=== PATIENT | female | born 1935 | race Caucasian/White ===

== ENCOUNTER 2016-07-29 15:48 | Emergency (ER) | payer OTHER ==
[~2016-07-29] VITALS: Ht 157.5 cm; Wt 60.5 kg
[~2016-07-29 15:48] MED LIST: ALPR0.5T PO; AMIT75TA2 PO; GLC/500 PO; OMEP20CA59 PO; ROSU20TA PO; TOLT4CAP PO; [UNRECOGNIZED DRUG - CODE] PO
[2016-07-29 15:54] VITALS: TEMP 37; Ht 157.5 cm; Wt 60.5 kg
[2016-07-29] MEDS ORDERED: ZNTT/150 PO (16:55)
--- NOTE | 2016-07-29 17:01 | DIAGNOSTIC IMAGING REPORT ---
LEFT RIBS UNILATERAL WITH PA CHEST CLINICAL HISTORY: left rib pain, fall two weeks ago COMPARISON STUDY: Chest 09/10/2010. FINDINGS: No pneumothorax. No focal lung consolidations. No evidence for pulmonary edema. No pleural effusions. The heart is stable in size. S-shaped scoliosis of the thoracolumbar spine is again noted. There appear to be acute to subacute fractures involving the left fifth, sixth, and eighth ribs. IMPRESSION: Acute to subacute left fifth, sixth, and eighth rib fractures. No pneumothorax. Electronically signed by: Jose A Cardozo M.D. 07/29/2016 5:00 PM Dictated Date/Time: 07/29/2016 4:57 PM
--- NOTE | 2016-07-29 17:27 | EMERGENCY ROOM VISIT NOTE ---
ED Visit Note First contact with patient: 16:35 CHIEF COMPLAINT: Left rib pain HISTORY OF PRESENT ILLNESS: This 81-year-old female presents the ER chief complaint of left lateral rib pain. The patient states that she fell 2 weeks ago. She is unaware if she hit the left side of her ribs. She has been having some left rib pain since that time. She went to her family physician last and they did an EKG and some labs and told her that it was not her heart. They did not do an x-ray of her ribs. The patient is requesting an x- ray of her ribs today. The patient states it hurts to take in a deep breath or if she sneezes. REVIEW OF SYSTEMS: 6 system review was performed and was negative unless stated otherwise in history of present illness. PMH: See chronic problem list SOCIAL HISTORY: Patient lives with her PHYSICAL EXAM: Vital Signs: Were reviewed Reviewed Nurse's notes. GEN.: 81-year -old white female appears in no acute distress. MENTAL Status: Alert and oriented 3. LUNGS: Clear to auscultation and breath sounds equal, no wheezes, rales, or rhonchi. HEART: Heart sounds are regular without murmurs, ectopy, gallop, or rub. CHEST WALL: Patient has tenderness to palpation over the left lateral chest wall. Otherwise nontender. No ecchymosis, erythema or edema noted. EMERGENCY DEPARTMENT COURSE: The patient was evaluated. The patient was offered pain medication but declined. X-ray of the left ribs was ordered and interpreted by the radiologist and myself. DIAGNOSTICS:LEFT RIBS UNILATERAL WITH PA CHEST CLINICAL HISTORY: left rib pain, fall two weeks ago COMPARISON STUDY: Chest 09/10/2010. FINDINGS: No pneumothorax. No focal lung consolidations. No evidence for pulmonary edema. No pleural effusions. The heart is stable in size. S-shaped scoliosis of the thoracolumbar spine is again noted. There appear to be acute to subacute fractures involving the left fifth, sixth, and eighth ribs. IMPRESSION: Acute to subacute left fifth, sixth, and eighth rib fractures. No pneumothorax. The patient was informed of the findings the patient was independently evaluated by Dr. Alvarado who agrees with treatment plan. The patient was discharged home in stable condition. DIAGNOSIS: Multiple left rib fractures TREATMENT and DISCHARGE INSTRUCTIONS: Take [place] as needed for pain. Do not drive while taking the [place]. Avoid any heavy lifting until pain has subsided. If symptoms persist or worsen, follow-up with your family doctor. Problem List Medical Problems: (1) Diabetes mellitus Status: Chronic Surgical Problems: (1) History of hip replacement Status: Chronic Current/Historical Medications Scheduled Alprazolam (Xanax), 0.5 MG PO BID PRN Amitriptyline Hcl (Elavil), 1 TAB PO HS Levodopa/Carbidopa (Sinemet 25MG/250MG), 1 TAB PO HS Metformin Hcl (Glucophage), 500 MG PO BID Omeprazole (Prilosec), 20 MG PO BID Ranitidine (Zantac), 150 MG PO BID Rosuvastatin Calcium (Crestor), 20 MG PO HS Tolterodine Tartrate (Detrol La), 4 MG PO DAILY Allergies Coded Allergies: Aspirin (Verified Allergy, Unknown, 12/14/15) Penicillins (Verified Allergy, Unknown, 12/14/15) Vital Signs Date Time Temp Pulse Resp B/P Pulse Ox O2 Delivery O2 Flow Rate FiO2 07/29/16 15:54 37.0 80 18 122/72 97 Room Air Departure Information Referrals Malia Artis DO (PCP) Patient Instructions My [facility]
[2016-07-29] MEDS ORDERED: HYDR-5688 PO (17:29)
[2016-07-29 17:41] VITALS: BP 142/80; PULSE 62; O2SAT 97
--- NOTE | 2016-07-30 12:05 | EMERGENCY ROOM VISIT NOTE ---
ED Visit Note First contact with patient: 16:35 I have personally evaluated this patient examined her and reviewed the pertinent labs and data. I have discussed the case with Inga Rivera, the physician tiler's assistant and agree with the plan. Please refer to the PA note. This patient comes in after having left rib vern.n she fell about a week ago. On x-ray, she has a couple rib fractures but no pneumothorax. She looks well on exam. She has no abdominal tenderness. She has no crepitus or subcutaneous air. I stressed the importance of pain management and taking several deep breaths an hour. She can have a close follow-up with her regular doctor and will be discharged home with pain management. I warned her that she needs to be careful getting up and down and do not drink or drive after taking narcotics.
== END 2016-07-29 17:41 | disposition home or self-care (01) ==
LOC: C.EDB 15:49 → C.EDD 17:41
DX: S22.42XA Multiple fractures of ribs, left side, initial encounter for closed fracture (principal); W19.XXXA Unspecified fall, initial encounter; E11.9 Type 2 diabetes mellitus without complications; Z96.649 Presence of unspecified artificial hip joint

== ENCOUNTER 2019-01-06 08:30 | Inpatient (IN) ==
[2019-01-06] MEDS ORDERED: ONDANSETRON INJ 2 MG/ML 2 ML VIAL IV STA (09:04)
[2019-01-06] MEDS ORDERED: SODIUM CHLORIDE 0.9% 500 ML IV SCH (09:15)
[2019-01-06 09:24] LABS: Basophils # (auto) 0.03 K/uL (0-0.2); Basophils % (auto) 0.4 %; Eosinophils # (auto) 0.03 K/uL (0-0.5); Eosinophils % (auto) 0.4 %; Hematocrit (blood only) 42.4 % (37-47); Hemoglobin 14.6 g/dL (12.0-16.0); Immature Granulocytes # (auto) 0.02 K/uL (0.00-0.02); Immature Granulocytes % (auto) 0.3 %; Lymphocytes # (auto) 1.66 K/uL (1.2-3.4); Lymphocytes % (auto) 24.8 %; Mean Corpuscular Hgb Conc 34.4 g/dL (32-36); Mean Platelet Volume 9.5 fL (7.4-10.4); Monocytes # (auto) 0.51 K/uL (0.11-0.59); Monocytes % (auto) 7.6 %; Neutrophils # (auto) 4.44 K/uL (1.4-6.5); Neutrophils % (auto) 66.5 %; Platelet Count 238 K/uL (130-400); RDW Coefficient of Variation 13.4 % (11.5-14.5); RDW Standard Deviation 44.4 fL (36.4-46.3); Red Blood Count 4.61 M/uL (4.2-5.4); White Blood Count 6.69 K/uL (4.8-10.8)
--- NOTE | 2019-01-06 09:28 | XRay Report ---
SINGLE VIEW CHEST CLINICAL HISTORY: Epigastric abdominal pain. FINDINGS: An AP, portable, upright chest radiograph is compared to study dated 07/29/2016. The examina tion is degraded by portable technique and patient rotation. The heart is top normal for projection , noting atherosclerotic calcification of the thoracic aorta.. Chronic interstitial thickening an mil d elevation of the left hemidiaphragm are similar to previous. There is bibasilar scarring/atelectasi s. No airspace consolidation or large pleural effusion is identified. No pneumothorax is seen. The sk eletal structures are osteopenic. The bony thorax is grossly intact. Degenerative change and scoliosi s are noted in the thoracic spine IMPRESSION: No active disease in the chest. Electronically signed by: John Ortega M.D. 01/06/2019 9:27 AM
[2019-01-06 09:35] LABS: Partial Thromboplastin Ratio 0.8; Partial Thromboplastin Time 22.2 Seconds (21.0-31.0); Prothrombin Time 10.2 Seconds (9.0-12.0)
[2019-01-06 09:42] LABS: Alanine Aminotransferase 22 U/L (12-78); Albumin Level 3.5 gm/dl (3.4-5.0); Aspartate Aminotransferase 16 U/L (15-37); BUN Creatinine Ratio 22.3 (10-20); Blood Urea Nitrogen 19 mg/dl (7-18); Calcium 8.7 mg/dl (8.5-10.1); Carbon Dioxide 29 mmol/L (21-32); Chloride 106 mmol/L (98-107); Creatinine Clr Calc Pharmacy 43.8 ml/min; Est GFR (Non-African American) 63.8; Glucose 113 mg/dl (70-99); Magnesium 2.2 mg/dl (1.8-2.4); Potassium 4.1 mmol/L (3.5-5.1); Sodium 142 mmol/L (136-145)
[2019-01-06 09:47] LABS: Albumin Globulin Ratio 0.9 (0.9-2); Alkaline Phosphatase 73 U/L (45-117); Bilirubin,Total 0.3 mg/dl (0.2-1); Globulin 3.8 gm/dl (2.5-4.0); Total Protein 7.3 gm/dl (6.4-8.2); Troponin I < 0.015 ng/ml (0-0.045)
[2019-01-06] MEDS: IOVERSOL 100ml IV PRN ×2 (09:59→10:07)
--- NOTE | 2019-01-06 10:18 | CT Scan Report ---
CT SCAN OF THE ABDOMEN AND PELVIS WITH IV CONTRAST CLINICAL HISTORY: Abnormal ultrasound. 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 COMPARISON STUDY: Abdominal radiographs dated 11/05/2008. Abdominal ultrasound dated 01/06/2019. TECHNIQUE: Following the IV administration of 94 cc of Optiray 320, CT scan of the abdomen and pelvi s is performed from the lung bases to the proximal femora. Images are reviewed in the axial, sagittal , and coronal planes. IV contrast was administered without complication. A dose lowering technique wa s utilized adhering to the principles of ALARA. CT DOSE: 292.54 mGy.cm FINDINGS: Lung bases: The heart is normal in size and without pericardial effusion. The coronary arteries are d ensely calcified fat-containing Bochdalek hernias are seen at both lung bases. There is elevation of left hemidiaphragm and dependent atelectasis. A 7 mm pleural-based nodule is seen in the right middle lobe on image #19. Pulmonary pleural-based nodules at the left lung base measure up to 6 mm. A 3 mm right lower lobe nodule is seen on image #44. No airspace consolidation or pleural effusion is identi fied. There is a small to moderate hiatal hernia. Liver: The contrast-enhanced liver is enlarged, measuring 19 cm in length. The liver demonstrates dif fusely diminished attenuation consistent with hepatic steatosis. There is no intrahepatic biliary jacqueline devin dilatation. The hepatic veins and portal veins are patent. Gallbladder: The calcified gallstone is noted. There is no CT evidence of acute cholecystitis. Spleen: Normal in size and attenuation. Pancreas: Mildly atrophic and grossly unremarkable. Adrenal glands: Unremarkable. Kidneys: The contrast enhanced kidneys are normal in size and without hydronephrosis. The kidneys enh ance symmetrically. Abdominal vasculature: There is advanced atherosclerotic calcification and mild ectasia of the abdomi nal aorta. There is a large nonocclusive thrombus identified within the inferior vena cava. This sri ures over 8.5 cm in length, end is seen at the level of the left renal vein and extends into the righ t iliac vein. Bowel: There is moderate constipation. No bowel obstruction is seen. The appendix is not visualized. Peritoneum: There is no intraperitoneal free air or abdominal ascites. There is asymmetric atrophy of the left psoas muscle as compared to the right. There is a fat-containing umbilical hernia. Lymphadenopathy: None. Pelvic viscera: Evaluation of the pelvis is degraded by streak artifact from a left hip arthroplasty. The bladder is normal as imaged. The uterus is surgically absent. No adnexal lesion is seen. Fat-con taining hernias are present in the groin bilaterally, likely femoral on the right. Skeletal structures: The skeletal structures are osteopenic. No lytic or blastic lesions are seen. Th ere is mild to moderate lumbosacral spondylosis and scoliosis. A left hip arthroplasty is in place. IMPRESSION: 1. 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 This extends into th e right iliac vein. 2. No infectious or inflammatory findings are identified in the abdomen or pelvis. 3. Hepatomegaly and hepatic steatosis. 4. Moderate constipation. 5. Indeterminant pulmonary and pleural-based nodules are present at both lung bases measure up to 7 m m. 6. Cholelithiasis. 7. Additional findings as above. Electronically signed by: John Ortega M.D. 01/06/2019 10:17 AM
[2019-01-06] MEDS ORDERED: Heparin IV Standard *NO* Bolus ONE (10:33)
--- NOTE | 2019-01-06 11:06 | History & Physical Report ---
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 Consult vascular surgery. Heparin infusion Present on Admission?: Yes (2) Cholelithiasis: Associated with nausea. Obtain HIDA scan. No evidence of acute cholecystitis on CT scan or gallbladder ultrasound Present on Admission?: Yes (3) Diabetes mellitus: ADA diet. Sliding scale insulin coverage. The patient request solid food. Hold metformin Present on Admission?: Yes (4) Depression with anxiety: Treated with venlafaxine Present on Admission?: Yes (5) DVT prophylaxis: Currently on heparin drip History of Present Illness Chief Complaint: IVC thrombosis noted on CT scan. Nausea Primary Care Provider: CAIN Sparrow 83-year-old female with episodes of postprandial nausea mostly in the morning. She has had several studies done and the CT scan reveals evidence of an IVC clot that is partially occlusive extending from the left renal vein down to the right iliac vein. She also has hepatic steatosis and cholelithiasis. The gallbladder is distended but no evidence of acute cholecystitis. She may have chronic gallbladder disease causing the nausea or possibly the nausea is from the IVC thrombus. HIDA scan has been ordered. Dr. Mcdaniel has discussed the case with Dr. Bauer who recommended heparin infusion which has been started. Vascular surgery has been formally consulted to see the patient for their recommendations. She requests a DNR status. No change in bowel habits. No vomiting, hematemesis, melena, hematochezia. No recent weight loss. Allergies Allergy/AdvReac Type Severity Reaction Status Date / Time aspirin Allergy Unknown Verified 01/06/19 10:18 Penicillins Allergy Unknown Verified 01/06/19 10:18 Home Medications Home Medications Medication Instructions Recorded Confirmed Type ondansetron 4 mg disintegrating 4 mg PO .dissolve 1 under the PRN 11/19/18 01/06/19 Rx tablet #12 tab tolterodine 2 mg tablet 2 mg PO HS #90 tab 11/19/18 01/06/19 Rx cholecalciferol (vitamin D3) 50,000 units PO WK #10 cap 01/06/19 01/06/19 History 50,000 unit capsule cyanocobalamin (vit B-12) 1,000 1,000 mcg PO QAM #30 tab 01/06/19 01/06/19 History mcg tablet metformin 500 mg PO HS 01/06/19 01/06/19 History pantoprazole 40 mg PO QAM 01/06/19 01/06/19 History sucralfate [Carafate] 10 ml PO QAM 01/06/19 01/06/19 History venlafaxine 150 mg PO QAM 01/06/19 01/06/19 History Past Med/Surg History Medical History Cholelithiasis (Chronic) Inferior vena caval thrombosis (Acute) RUQ abdominal pain (Acute) Depression with anxiety (Chronic) We will contact the patient so that she can call [facility] to get an appointment scheduled with Psychiatry to help with her anxiety and depression. GERD (gastroesophageal reflux disease) (Chronic) Trial of Carafate 1 gram suspension 1st thing in the morning an hour before she eats breakfast to see if that helps with the nausea. If that is not helpful we may need to order a gastric emptying study. Impacted cerumen of both ears (Acute) Diabetes mellitus (Chronic) Reflux esophagitis History of hysterectomy Surgical History History of hip replacement (Chronic) History of appendectomy Social History Feels Safe at Home: Yes Smoking Status: Never smoker Review of Systems Review of Systems: Constitutional-no fever or chills ENT-no blurred vision, no double vision, no epistaxis, no sore throat Respiratory-no cough, no wheezing, no shortness of breath Cardiac-no palpitations, no chest pain, no syncope GI-no vomiting, diarrhea, melena, hematochezia. Some postprandial nausea especially in the morning -no urinary retention, no urinary incontinence, no dysuria, no hematuria Musculoskeletal-no joint pain, no muscle tenderness Skin-no bruising, no rashes, no pruritus Neuro-no isolated weakness, no paresthesia, no weakness Psych-no depression, no anxiety Physical Exam Physical Exam: General-alert and oriented x3, no fevers, no chills HEENT-head atraumatic and normocephalic, TMs intact bilaterally, pupils equal and reactive to light, extraocular muscles intact Neck-no lymphadenopathy or thyromegaly, trachea midline Chest-clear to auscultation percussion. No rales wheezing or rhonchi Cardiac-regular rate and rhythm, normal S1 and S2, no JVD Abdomen-normal bowel sounds, nontender, no hepatosplenomegaly Extremities-no cyanosis, clubbing, or edema Neuro-cranial nerves II through XII intact, motor and sensory function within normal limits, strength symmetrical , no focal deficits Psych-normal affect, normal mood Results & Data Vital Signs (Past 12 Hours) Vital Signs Temp Pulse Pulse Resp BP BP Pulse Ox 01/06/19 09:24 97 01/06/19 09:23 62 18 173/79 H 97 01/06/19 08:33 36.8 C 69 16 151/82 H 97 Laboratory Results 01/06/19 09:09 01/06/19 09:09 PG Care Time/CCT Total # of Minutes Spent Total Time Spent with Patient: Total time spent is greater than 50% in coordination of care (as documented) at patient's floor/unit and/or counseling patient:
[2019-01-06] MEDS: HEPARIN SODIUM/DEXTROSE 25,000 UNITS/500 ML BAG IV SCH (11:39)
[2019-01-06] MEDS ORDERED: ACETAMINOPHEN 325 MG TAB PO PRN (12:37)
[2019-01-06] MEDS ORDERED: ONDANSETRON INJ 2 MG/ML 2 ML VIAL IV PRN (12:37)
[2019-01-06] MEDS ORDERED: ALUMINUM/MAGNESIUM SUSP 30 ML UDC PO PRN (12:37)
--- NOTE | 2019-01-06 12:56 | Emergency Department Note ---
Entered by Sonya Spaulding acting as a scribe for History of Present Illness General Chief complaint: Abdominal Pain Stated complaint: STOMACH PROBLEMS Time Seen by Provider: 01/06/19 08:51 Source: patient History of Present Illness Provider complaint: nausea Onset (ago): week(s) Pain Consistency: + other (episode) Maximum Pain Intensity: 0 Quality: + other (nausea) Associated symptoms: + denies other symptoms (weight loss, diarrhea, vomiting, pain) and + other (blue spot on abdomen, constipation); no chest pain and no shortness of breath Treatments prior to arrival: none The patient is an 83 year old female who presents to the ED with complaints of an episode of nausea that began a few weeks ago. The patient notes a history of appendectomy and two hysterectomies. The patient denies a history of cholecystectomy, DVT and PE. The patient states that she has a blue spot on her abdomen and has been experiencing constipation recently, but is in no pain otherwise. The patient denies recent weight loss, diarrhea, shortness of breath, chest pain, and vomiting. The patient denies treatment prior to arrival. The patient had an outpatient US of abdomen today to look at her gallbladder, but a venous clot was found. Patient was advised to seek immediate evaluation in ED. Home Medications Home Medications Medication Instructions Recorded Confirmed Type ondansetron 4 mg disintegrating 4 mg PO .dissolve 1 under the PRN 11/19/18 01/06/19 Rx tablet #12 tab tolterodine 2 mg tablet 2 mg PO HS #90 tab 11/19/18 01/06/19 Rx cholecalciferol (vitamin D3) 50,000 units PO WK #10 cap 01/06/19 01/06/19 History 50,000 unit capsule cyanocobalamin (vit B-12) 1,000 1,000 mcg PO QAM #30 tab 01/06/19 01/06/19 History mcg tablet metformin 500 mg PO HS 01/06/19 01/06/19 History pantoprazole 40 mg PO QAM 01/06/19 01/06/19 History sucralfate [Carafate] 10 ml PO QAM 01/06/19 01/06/19 History venlafaxine 150 mg PO QAM 01/06/19 01/06/19 History Allergies Allergy/AdvReac Type Severity Reaction Status Date / Time aspirin Allergy Unknown Verified 01/06/19 10:18 Penicillins Allergy Unknown Verified 01/06/19 10:18 Past Med/Surg History Medical History Cholelithiasis (Chronic) Inferior vena caval thrombosis (Acute) RUQ abdominal pain (Acute) Depression with anxiety (Chronic) We will contact the patient so that she can call [facility] to get an appointment scheduled with Psychiatry to help with her anxiety and depression. GERD (gastroesophageal reflux disease) (Chronic) Trial of Carafate 1 gram suspension 1st thing in the morning an hour before she eats breakfast to see if that helps with the nausea. If that is not helpful we may need to order a gastric emptying study. Impacted cerumen of both ears (Acute) Diabetes mellitus (Chronic) Reflux esophagitis History of hysterectomy Surgical History History of hip replacement (Chronic) History of appendectomy Social History Preferred Language: Khmer Communication Ability: Effective Beliefs That Will Affect Care: None Current Living Situation: Spouse Feels Safe at Home: Yes Smoking Status: Never smoker Hx Alcohol Use: No Hx Substance Use: No Review of Systems See HPI for pertinent positives & negatives. and A total of 10 systems reviewed and were otherwise negative Physical Exam Vital Signs Vital Signs - 24 hr 01/06/19 08:33 01/06/19 09:23 01/06/19 09:24 Temperature 36.8 C Temperature Source Oral Sepsis Recent Fever Within 48 Hours No Sepsis New/Unexplained Change in Mental Status No Sepsis Action Taken by Nursing No Action Required Pulse Rate 69 Pulse Rate [Apical] 62 Respiratory Rate 16 18 Blood Pressure 151/82 H Blood Pressure [Left Arm] 173/79 H Blood Pressure Mean 105 Blood Pressure Mean [Left Arm] 110 Pulse Oximetry 97 97 97 Oxygen Delivery Method Room Air Room Air Room Air GENERAL: Patient is in no acute distress. HEENT: No acute trauma, normocephalic atraumatic, mucous membranes moist, no nasal congestion, no scleral icterus. NECK: No stridor, no adenopathy, no meningismus, trachea is midline. LUNGS: Clear to auscultation bilaterally, no wheeze, no rhonchi, breath sounds equal. HEART: 1/6 systolic murmur, regular rate, regular rhythm. ABDOMEN: Soft, nontender, bowel sounds positive, no hernias, no peritonitis. EXTREMITIES: No cyanosis or edema, full range of motion of all the joints without pain or difficulty, no signs for acute trauma. NEUROLOGIC: Oriented x 3, no acute motor or sensory deficits, no focal weakness. SKIN: No rash, no jaundice, no diaphoresis. Course 0853: Past medical records reviewed. The patient was evaluated in room B10. A complete history and physical exam was performed. 0904: I spoke with Dr. Cecilia Stewart. He states that CT with IV contrast is best but wants to talk to vascular first. 0909: I discussed the patient's case with Dr. Nola Leon. He states there is no reason for any kind of vascular involvement for the clot at this time 1027: I discussed the patient's case with Dr. Andrews [facility] Hospitalist. He will evaluate the patient for further management. 1029: I updated the patient on her test results and she is okay with admission. Consultations Consultation #1: I spoke with Dr. Cecilia tSewart. He states that CT with IV contrast is best but wants to talk to vascular first. Time: 09:04 Consultation #2: I discussed the patient's case with Dr. Nola Leon. He states there is no reason for any kind of vascular involvement for the clot at this time. Time: : Consultation #3: I discussed the patient's case with Dr. Andrews [facility] Hospitalist. He will evaluate the patient for further management. Time: 10:27 Administered Medications Heparin Sodium/Dextrose (Heparin Sodium/Dextrose) 25,000 units in 500 mls @ 20 mls/hr IV .Q24H BOUCHRA; Protocol Stop: 02/05/19 10:44 Last Titration: 01/06/19 12:58 Dose: 1,000 units/hr, 20 mls/hr Documented by: [id number] Cosigned by: [id number] Admin: 01/06/19 11:39 Dose: 1,000 units/hr, 20 mls/hr Documented by: [id number] Cosigned by: [id number] Insulin Aspart (Novolog Flexpen) 0 units SC ACHS BOUCHRA Stop: 02/05/19 12:36 Last Admin: 01/06/19 14:04 Dose: 1 units Documented by: [id number] Cosigned by: [id number] Ioversol (Optiray 320 100ml) 94 ml IV ONCE PRN PRN Reason: Interaction Checking Stop: 01/10/19 09:58 Last Admin: 01/06/19 10:07 Dose: 94 ml Documented by: [id number] Admin: 01/06/19 09:59 Dose: 94 ml Documented by: [id number] Discontinued Medications Heparin Sodium/Dextrose () 1 ea N/A ONE ONE; Protocol Stop: 01/06/19 10:34 Last Admin: 01/06/19 11:37 Dose: 1 ea Documented by: [id number] Sodium Chloride (Nss) 500 mls @ 999 mls/hr IV .Q31M BOUCHRA Stop: 01/06/19 09:45 Last Infusion: 01/06/19 11:30 Dose: 0 mls/hr Documented by: [id number] Admin: 01/06/19 10:06 Dose: 999 mls/hr Documented by: [id number] Ondansetron HCl (Zofran) 4 mg IV NOW STA Stop: 01/06/19 09:05 Last Admin: 01/06/19 10:08 Dose: 4 mg Documented by: [id number] Medical Decision Making Differential Diagnosis Differentials include malignancy, venous clot, biliary colic, pancreatitis, electrolyte imbalance, anemia, dehydration. Medical Records Attestation: I reviewed the patient's medical records. Home Medications Current Medication List: was personally reviewed by me Laboratory Data Attestation: I reviewed the patient's lab results. Result diagrams: 01/06/19 09:09 01/06/19 09:09 Lab Results 01/06/19 01/06/19 01/06/19 Range/Units 09:09 09:09 09:09 WBC 6.69 (4.8-10.8) K/uL RBC 4.61 (4.2-5.4) M/uL Hgb 14.6 (12.0-16.0) g/dL Hct 42.4 (37-47) % MCV 92.0 (80-100) fL MCH 31.7 (25-34) pg MCHC 34.4 (32-36) g/dL RDW Std Deviation 44.4 (36.4-46.3) fL RDW Coeff of Anusha 13.4 (11.5-14.5) % Plt Count 238 (130-400) K/uL MPV 9.5 (7.4-10.4) fL Immature Gran % (Auto) 0.3 % Neut % (Auto) 66.5 % Lymph % (Auto) 24.8 % Scott % (Auto) 7.6 % Eos % (Auto) 0.4 % Baso % (Auto) 0.4 % Immature Gran # (Auto) 0.02 (0.00-0.02) K/uL Neut # (Auto) 4.44 (1.4-6.5) K/uL Lymph # (Auto) 1.66 (1.2-3.4) K/uL Scott # (Auto) 0.51 (0.11-0.59) K/uL Eos # (Auto) 0.03 (0-0.5) K/uL Baso # (Auto) 0.03 (0-0.2) K/uL PT 10.2 (9.0-12.0) Seconds INR 1.0 (0.9-1.1) APTT 22.2 (21.0-31.0) Seconds PTT Ratio 0.8 Sodium 142 (136-145) mmol/L Potassium 4.1 (3.5-5.1) mmol/L Chloride 106 (98-107) mmol/L Carbon Dioxide 29 (21-32) mmol/L Anion Gap 7.0 (3-11) BUN 19 H (7-18) mg/dl Creatinine 0.84 (0.6-1.2) mg/dl Est Cr Clr Drug Dosing 43.8 ml/min Est GFR ( Amer) 74.0 Est GFR (Non-Af Amer) 63.8 BUN/Creatinine Ratio 22.3 H (10-20) Glucose 113 H (70-99) mg/dl Calcium 8.7 (8.5-10.1) mg/dl Magnesium 2.2 (1.8-2.4) mg/dl Total Bilirubin 0.3 (0.2-1) mg/dl AST 16 (15-37) U/L ALT 22 (12-78) U/L Alkaline Phosphatase 73 (45-117) U/L Troponin I < 0.015 (0-0.045) ng/ml Total Protein 7.3 (6.4-8.2) gm/dl Albumin 3.5 (3.4-5.0) gm/dl Globulin 3.8 (2.5-4.0) gm/dl Albumin/Globulin Ratio 0.9 (0.9-2) Lipase 119 (73-393) U/L Imaging Data Radiologist's Impression: Radiology results as stated below per my review and the radiologist's interpretation: SINGLE VIEW CHEST CLINICAL HISTORY: Epigastric abdominal pain. FINDINGS: An AP, portable, upright chest radiograph is compared to study dated 07/29/2016. The examination is degraded by portable technique and patient rotation. The heart is top normal for projection, noting atherosclerotic calcification of the thoracic aorta.. Chronic interstitial thickening an mild elevation of the left hemidiaphragm are similar to previous. There is bibasilar scarring/atelectasis. No airspace consolidation or large pleural effusion is i dentified. No pneumothorax is seen. The skeletal structures are osteopenic. The bony thorax is grossly intact. Degenerative change and scoliosis are noted in the thoracic spine IMPRESSION: No active disease in the chest. Electronically signed by: John Ortega M.D. 01/06/2019 9:[address] SCAN OF THE ABDOMEN AND PELVIS WITH IV CONTRAST CLINICAL HISTORY: Abnormal ultrasound. 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 COMPARISON STUDY: Abdominal radiographs dated 11/05/2008. Abdominal ultrasound dated 01/06/2019. TECHNIQUE: Following the IV administration of 94 cc of Optiray 320, CT scan of the abdomen and pelvis is performed from the lung bases to the proximal femora. Images are reviewed in the axial, sagittal, and coronal planes. IV contrast was administered without complication. A dose lowering technique was utilized adhering to the principles of ALARA. CT DOSE: 292.54 mGy.cm FINDINGS: Lung bases: The heart is normal in size and without pericardial effusion. The coronary arteries are densely calcified fat-containing Bochdalek hernias are seen at both lung bases. There is elevation of left hemidiaphragm and dependent atelectasis. A 7 mm pleural-based nodule is seen in the right middle lobe on image #19. Pulmonary pleural-based nodules at the left lung base measure up to 6 mm. A 3 mm right lower lobe nodule is seen on image #44. No airspace consolidation or pleural effusion is identified. There is a small to moderate hi atal hernia. Liver: The contrast-enhanced liver is enlarged, measuring 19 cm in length. The liver demonstrates diffusely diminished attenuation consistent with hepatic steatosis. There is no intrahepatic biliary ductal dilatation. The hepatic veins and portal veins are patent. Gallbladder: The calcified gallstone is noted. There is no CT evidence of acute cholecystitis. Spleen: Normal in size and attenuation. Pancreas: Mildly atrophic and grossly unremarkable. Adrenal glands: Unremarkable. Kidneys: The contrast enhanced kidneys are normal in size and without hydronephrosis. The kidneys enhance symmetrically. Abdominal vasculature: There is advanced atherosclerotic calcification and mild ectasia of the abdominal aorta. There is a large nonocclusive thrombus identified within the inferior vena cava. This measures over 8.5 cm in length, end is seen at the level of the left renal vein and extends into the right iliac vein. Bowel: There is moderate constipation. No bowel obstruction is seen. The appendix is not visualized. Peritoneum: There is no intraperitoneal free air or abdominal ascites. There is asymmetric atrophy of the left psoas muscle as compared to the right. There is a fat-containing umbilical hernia. Lymphadenopathy: None. Pelvic viscera: Evaluation of the pelvis is degraded by streak artifact from a left hip arthroplasty. The bladder is normal as imaged. The uterus is surgically absent. No adnexal lesion is seen. Fat-containing hernias are present in the groin bilaterally, likely femoral on the right. Skeletal structures: The skeletal structures are osteopenic. No lytic or blastic lesions are seen. There is mild to moderate lumbosacral spondylosis and scoliosis. A left hip arthroplasty is in place. IMPRESSION: 1. 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 This extends into the right iliac vein. 2. No infectious or inflammatory findings are identified in the abdomen or pelvis. 3. Hepatomegaly and hepatic steatosis. 4. Moderate constipation. 5. Indeterminant pulmonary and pleural-based nodules are present at both lung bases measure up to 7 mm. 6. Cholelithiasis. 7. Additional findings as above. Electronically signed by: John Ortega M.D. 01/06/2019 10:17 AM OUTPATIENT US ABDOMEN LIMITED Impression: 1. Large partially occlusive thrombus of the IVC. 2. Cholelithiasis with mild gallbladder distention. 3. Suggestion of hepatic steatosis. 4. No biliary ductal dilation. Findings were discussed with Dr. Rojas on 01/06/2019 at 8:10 AM Electronically signed by: Pato Ma M.D. ECG Data Attestation: I personally reviewed and interpreted this ECG as follows: Indication: other (epigastric pain) Rate (beats per minute): 64 Rhythm: normal sinus Findings: no PVC and no ST elevation Blood Pressure Blood Pressure Findings: Elevated blood pressure Blood Pressure Disposition: further management by hospitalist JOSH Narrative There is no leukocytosis or concerning anemia. No coagulopathy. No significant electrolyte abnormality or kidney failure. No elevation to the liver enzymes. No evidence for pancreatitis. EKG shows a sinus rhythm, no acute ischemia. Cardiac enzyme testing x1 is not consistent with acute cardiac injury. Chest film does not show any pneumonia or CHF. Abdominal and pelvis CT shows a clot in the inferior vena cava which extends down into the right iliac vein. No solid organ injury noted. No evidence for malignancy by CT scan. Patient presents with nausea. She has gallstones and this may be causing the nausea. Incidentally, she was found to have an inferior vena cava clot. This finding does require anticoagulation and a hospital stay. The cause for the clot in the IVC is unclear. The patient is aware of all her findings. I did speak to case management. The on-call hospitalist was consulted. I did start the patient on IV heparin to begin her anticoagulation. Of note, I did consult vascular, no emergent vascular intervention was felt warranted. Impression & Plan Inferior vena caval thrombosis, Nausea, DVT (deep venous thrombosis) Discharge Plan Visit Data *Final* Discharge Date/Time: 01/06/19 12:11 Chief Complaint: Abdominal Pain Stated Complaint: STOMACH PROBLEMS ED Provider: John Mcdaniel Discharge Problem: Inferior vena caval thrombosis, Nausea, DVT (deep venous thrombosis) Patient Disposition: Admitted As Inpatient Discharge Instructions Interventions: ED Discharge Assessment Last Done: 01/06/19 12:11 Discharge Problem: DVT (deep venous thrombosis) Qualifiers: Affected thrombotic vein of extremity: unspecified vein of extremity Chronicity: unspecified The scribe's documentation has been prepared under my direction and personally reviewed by me in its entirety. I confirm that the note above accurately reflects all work, treatment, procedures, and medical decision making performed by me.
[2019-01-06] MEDS ORDERED: GLUCOSE 10 TABS/TUBE PO PRN (13:00)
[2019-01-06] MEDS ORDERED: DEXTROSE 50% 50 ML SYRINGE IV PRN (13:00)
[2019-01-06] MEDS ORDERED: GLUCAGON FOR INJ 1 MG VIAL IM PRN (13:00)
[2019-01-06] MEDS ORDERED: CARBOHYDRATES FOR HYPOGLYCEMIA PO PRN (13:00)
[2019-01-06] MEDS ORDERED: GLUCOSE 40% GEL 15 GM TUBE PO PRN (13:00)
[2019-01-06] MEDS: INSULIN ASPART 100 UNITS/ML 3 ML PEN SC SCH ×3 (14:04→21:36)
[2019-01-06 14:47] LABS: Appearance Urine Clear (Clear); Bilirubin Urine Negative (Negative); Blood Urine Negative (Negative); Color Urine Yellow; Glucose Urine UA Negative (Negative); Ketones Urine Negative (Negative); Leukocyte Esterase Urine Negative (Negative); Nitrite Urine Negative (Negative); Protein Urine Negative (Negative); Specific Gravity Urine 1.042 (1.000-1.030); Urobilinogen Urine Negative (Negative)
[2019-01-06 18:21] LABS: Partial Thromboplastin Ratio 1.5; Partial Thromboplastin Time 39.6 Seconds (21.0-31.0)
[2019-01-06] MEDS ORDERED: HEPARIN IV BOLUS 4,000 UNITS in SYRINGE 0 ML IV ONE (20:00)
[2019-01-06] MEDS: TOLTERODINE TARTRATE 2 MG TAB PO SCH (20:35)
[2019-01-07 03:20] LABS: Partial Thromboplastin Ratio 4.3
[2019-01-07 03:28] LABS: Partial Thromboplastin Time 116.5 Seconds (21.0-31.0)
[2019-01-07] MEDS ORDERED: Nursing to Pharmacy Communication ONE ×2 (04:16→14:51)
[2019-01-07] MEDS: INSULIN ASPART 100 UNITS/ML 3 ML PEN SC SCH ×4 (05:43→21:04)
[2019-01-07 06:48] LABS: Partial Thromboplastin Ratio 3.4
[2019-01-07 06:54] LABS: Partial Thromboplastin Time 91.7 Seconds (21.0-31.0)
[2019-01-07] MEDS ORDERED: SINCALIDE 1.3 MCG in 0.9 % SODIUM CHLORIDE 100 ML IV SCH (08:30)
--- NOTE | 2019-01-07 08:49 | Consultation ---
Date of Consultation January 07, 2019 Assessment & Plan (1) Inferior vena caval thrombosis: This patient developed partial thrombosis of her infrarenal inferior vena cava extending to the iliac. She does not have any significant lower extremity edema. There is no indication for any intervention for this thrombosis.I would treat her at this time with anticoagulation and at least 6 months of oral anticoagulation. Most likely should be of benefit from rescanning at that time to reevaluate the amount of clot that remains. Thank you very much for letting us participate in the care of this patient. History of Present Illness Reason for Consultation: Thrombosis Of the inferior vena cava. Attending Physician: Sha Mooney MD History of Present Illness This is a 83-year-old white female who is being worked up for nauseousness. She had a CAT scan and found to have a partial thrombosis of her infrarenal inferior vena cava. She was admitted at that time for the problem.She denies any previous history of thrombosis.She denies any previous abdominal pain.She denies any significant leg swelling but does claim that she has mild pedal edema at the end of the day which is been going on for a long period of time.She denied any shortness of breath.She does think that her mother of a blood clot but is unsure.There is no other family history of thrombosis. Allergies Allergy/AdvReac Type Severity Reaction Status Date / Time aspirin Allergy Unknown Verified 01/06/19 10:18 Penicillins Allergy Unknown Verified 01/06/19 10:18 Home Medications Home Medications Medication Instructions Recorded Confirmed Type ondansetron 4 mg disintegrating 4 mg PO .dissolve 1 under the PRN 11/19/18 01/06/19 Rx tablet #12 tab tolterodine 2 mg tablet 2 mg PO HS #90 tab 11/19/18 01/06/19 Rx cholecalciferol (vitamin D3) 50,000 units PO WK #10 cap 01/06/19 01/06/19 History 50,000 unit capsule cyanocobalamin (vit B-12) 1,000 1,000 mcg PO QAM #30 tab 01/06/19 01/06/19 History mcg tablet metformin 500 mg PO HS 01/06/19 01/06/19 History pantoprazole 40 mg PO QAM 01/06/19 01/06/19 History sucralfate [Carafate] 10 ml PO QAM 01/06/19 01/06/19 History venlafaxine 150 mg PO QAM 01/06/19 01/06/19 History Patient History Medical History Cholelithiasis (Chronic) Inferior vena caval thrombosis (Acute) RUQ abdominal pain (Acute) Depression with anxiety (Chronic) We will contact the patient so that she can call [facility] to get an appointment scheduled with Psychiatry to help with her anxiety and depression. GERD (gastroesophageal reflux disease) (Chronic) Trial of Carafate 1 gram suspension 1st thing in the morning an hour before she eats breakfast to see if that helps with the nausea. If that is not helpful we may need to order a gastric emptying study. Impacted cerumen of both ears (Acute) Diabetes mellitus (Chronic) Reflux esophagitis History of hysterectomy Surgical History History of hip replacement (Chronic) History of appendectomy Social History Preferred Language: Turkish Communication Ability: Effective Beliefs That Will Affect Care: None Current Living Situation: Spouse Feels Safe at Home: Yes Smoking Status: Never smoker Hx Alcohol Use: No Hx Substance Use: No Review of Systems Review of Systems: All systems reviewed & are unremarkable except as noted in HPI & below A sick stomach feeling. Physical Exam Constitutional: WD/WN, vitals as above Respiratory: normal respiratory effort; no respiratory distress Cardiovascular: Rate/Rhythm: regular rate and regular rhythm Vessels: femoral pulses present Extremities: normal capillary refill; no edema Gastrointestinal (Abdomen): Inspection/Auscultation: abdomen normal to inspection; abdomen not distended Percussion/Palpation: abdomen nontender, no guarding and abdomen not rigid Neurologic: normal touch/pain/proprioception and CN's II-XI intact bilaterally Psychiatric: Orientation: alert and oriented x 3 Results & Data Vital Signs (Past 12 Hours) Vital Signs Temp Pulse Resp BP Pulse Ox 01/07/19 07:38 37.1 C 88 16 147/82 H 94 01/06/19 23:01 36.8 C 68 16 132/74 92
[2019-01-07] MEDS: HEPARIN SODIUM/DEXTROSE 25,000 UNITS/500 ML BAG IV SCH ×2 (10:19→21:03)
[2019-01-07] MEDS: VENLAFAXINE HCL XR 150 MG CAPXR PO SCH (10:24)
[2019-01-07] MEDS: SUCRALFATE 1 GM/10 ML UDC PO SCH (10:25)
[2019-01-07] MEDS: PANTOprazole 40 MG TAB PO SCH (10:25)
[2019-01-07] MEDS: CYANOCOBALAMIN 500 MCG TABLET (VITAMIN B-12) PO SCH (10:25)
--- NOTE | 2019-01-07 10:29 | Nuclear Medicine Report ---
NM hepatobiliary EF CLINICAL HISTORY: Cholelithiasis, nausea COMPARISON STUDY: CT scan dated 01/06/2019 ULTRASOUND DATED 01/06/2019 FINDINGS: The patient was injected with 5.5 mCi of technetium 99m Choletec. Sequential anterior imagi ng was performed. Hepatic excretion appear unremarkable. The gallbladder was first visualized on the 15 minute image. A t 1 hour, the patient was administered 1.3 mcg of sincalide utilizing a 30 minute infusion. The gallb ladder ejection fraction was normal measuring 51%. There is normal passage of activity into small bow el. IMPRESSION: 1. Normal study. 2. No evidence of cystic duct obstruction. Gallbladder ejection fraction measuring 51% Electronically signed by: Jorden Barrera M.D. 01/07/2019 10:27 AM
[2019-01-07 14:27] LABS: Partial Thromboplastin Ratio 2.6
[2019-01-07 14:34] LABS: Partial Thromboplastin Time 71.5 Seconds (21.0-31.0)
--- NOTE | 2019-01-07 15:21 | Hospitalist Progress Note ---
Date of Service January 07, 2019 Assessment & Plan (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 - Consulted vascular surgery - Recommend anticoagulation for 3-6 months. No intervention. - Heparin infusion -> Working on oral anticoagulation pricing with network operations lead (2) RUQ abdominal pain: Possibly due to gastroparesis, IVC thrombus, vs. chronic mesenteric ischemia. Reviewed CT a/p myself and with Dr. Barrera - Some celiac stenosis possible, though not an optimal study to assess. - Getting gastric emptying study & CTA abdomen to rule out the first two - If no improvement, would consider outpatient surgical consult for her cholelithiasis (3) Cholelithiasis: Abdominal pain was thought to be due to cholelithiasis; however, HIDA scan on 01/07 was normal. - No evidence of acute cholecystitis on CT scan or gallbladder ultrasound - I believe the cholelithiasis is incidental. If there is no other etiology found for her morning nausea with eating, could consider outpatient surgical consult (4) Diabetes mellitus: - ADA diet. - Sliding scale insulin coverage. - Hold metformin - Repeat A1c (5) Depression with anxiety: Treated with venlafaxine (6) DVT prophylaxis: Currently on heparin drip Subjective No major changes from admission. Some nausea and pain with eating, particularly in the morning. Review of Systems Review of Systems: All systems reviewed & are unremarkable except as noted in HPI & below Physical Exam Constitutional: WD/WN, vitals as above Eyes: no conjunctival abnormality Respiratory: normal respiratory effort; no respiratory distress Cardiovascular: Rate/Rhythm: regular rate and regular rhythm Vessels: femoral pulses present Extremities: normal capillary refill; no edema Gastrointestinal (Abdomen): Inspection/Auscultation: abdomen normal to inspection; abdomen not distended Percussion/Palpation: abdomen nontender, no guarding and abdomen not rigid Neurologic: normal touch/pain/proprioception and CN's II-XI intact bilaterally Psychiatric: Orientation: alert and oriented x 3 Results & Data Vital Signs (Past 12 Hours) Vital Signs Temp Pulse Resp BP Pulse Ox 01/07/19 10:23 36.8 C 88 16 157/79 H 94 01/07/19 07:38 37.1 C 88 16 147/82 H 94 PG Care Time/CCT Total # of Minutes Spent Total Time Spent with Patient: Total time spent is greater than 50% in coordination of care (as documented) at patient's floor/unit and/or counseling patient:
[2019-01-07] MEDS ORDERED: OPTIRAY 320 125ml IV PRN (16:22)
--- NOTE | 2019-01-07 16:50 | CT Scan Report ---
CT ANGIOGRAM OF THE ABDOMEN CLINICAL HISTORY: Mesenteric ischemia. 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 COMPARISON STUDY: Abdominal CT dated 01/06/2019. Abdominal ultrasound dated 01/06/2019. TECHNIQUE: Following the IV administration of 119 cc of Optiray 320, CT angiogram of the abdomen is performed from the lung bases to the pelvic inlet. Images are reviewed in the axial, sagittal, and co nathanael planes. 3-D MIPS are created and assessed. IV contrast was administered without complication. A dose lowering technique was utilized adhering to the principles of ALARA. CT DOSE: 214.40 mGy.cm FINDINGS: Lung bases: The heart is normal in size and without pericardial effusion. The coronary arteries are d ensely calcified. Evaluation of the lung bases is degraded by motion artifact. Fat-containing Bochdal ek hernias are seen at both lung bases. There is bibasilar scarring/atelectasis. Chronic elevation of the left hemidiaphragm is again noted. Subcentimeter pulmonary and pleural-based nodules are again s uggested. These were better characterized on yesterday's examination. There is a small to moderate hi atal hernia. Liver: The contrast-enhanced liver is enlarged, measuring 19 cm in length. The liver demonstrates dif fusely diminished attenuation consistent with hepatic steatosis. There is no intrahepatic biliary jacqueline devin dilatation. . Gallbladder: A calcified gallstone is noted in the region of the gallbladder neck. There is no CT ho dence of acute cholecystitis. Spleen: Normal in size and attenuation noting heterogeneous arterial phase enhancement. Pancreas: Mildly atrophic and grossly unremarkable. Adrenal glands: Unremarkable. Kidneys: The contrast enhanced kidneys are normal in size and without hydronephrosis. The kidneys enh ance symmetrically. Abdominal aorta and iliac arteries: There is advanced atherosclerotic calcification and mild ectasia of the abdominal aorta. The abdominal aorta is patent. No dissection is seen. Imaged portions of the common iliac arteries are patent noting atherosclerotic irregularity. Major branches of the abdominal aorta: The celiac trunk, the superior mesenteric artery, and the infe rior mesenteric artery are patent. There is less than 50% stenosis at the origin of the celiac trunk. The splenic artery is patent. Hepatic arterial anatomy is conventional. There is a single left renal artery and 2 right renal arteries. The renal arteries are patent bilaterally with no evidence of hig h-grade stenosis. Inferior vena cava: The inferior vena cava is not well opacified. A large thrombus is again seen with in the IVC, best visualized on image #110. Bowel: The visualized loops of bowel are normal in caliber. Colonic fecal retention is observed. Peritoneum: There is no intraperitoneal free air or abdominal ascites. There is asymmetric atrophy of the left psoas muscle as compared to the right. There is a fat-containing umbilical hernia. Lymphadenopathy: None. Skeletal structures: The skeletal structures are osteopenic. No lytic or blastic lesions are seen. Th ere is mild to moderate lumbosacral spondylosis and scoliosis. A left hip arthroplasty is noted on th e drafter heating and ventilating tomogram. IMPRESSION: 1. 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 This was better asse ssed on yesterday's abdominal CT scan due to phase of enhancement. 2. No infectious or inflammatory findings are identified in the abdomen or pelvis. 3. Unremarkable CT angiogram of the abdominal aorta and its major branches noting atherosclerotic polo nge. See above. 4. Hepatomegaly and hepatic steatosis. 5. Cholelithiasis. 6. Additional findings as above. Electronically signed by: John Ortega M.D. 01/07/2019 4:48 PM
[2019-01-07] MEDS ORDERED: INSULIN ASPART 100 UNITS/ML 3 ML PEN SC SCH (18:00)
[2019-01-07] MEDS: TOLTERODINE TARTRATE 2 MG TAB PO SCH (20:34)
[2019-01-07] MEDS: APIXABAN 5 MG TABLET PO SCH (20:34)
[2019-01-08 06:56] LABS: Hematocrit (blood only) 42.1 % (37-47); Hemoglobin 14.7 g/dL (12.0-16.0); Mean Corpuscular Hgb Conc 34.9 g/dL (32-36); Mean Corpuscular Volume 91.1 fL (80-100); Mean Platelet Volume 9.5 fL (7.4-10.4); Platelet Count 251 K/uL (130-400); RDW Coefficient of Variation 13.4 % (11.5-14.5); RDW Standard Deviation 44.5 fL (36.4-46.3); Red Blood Count 4.62 M/uL (4.2-5.4); White Blood Count 7.24 K/uL (4.8-10.8)
[2019-01-08 07:06] LABS: Partial Thromboplastin Ratio 0.9; Partial Thromboplastin Time 24.8 Seconds (21.0-31.0)
[2019-01-08] MEDS: SUCRALFATE 1 GM/10 ML UDC PO SCH (09:26)
[2019-01-08] MEDS: CYANOCOBALAMIN 500 MCG TABLET (VITAMIN B-12) PO SCH (09:26)
[2019-01-08] MEDS: PANTOprazole 40 MG TAB PO SCH (09:26)
[2019-01-08] MEDS: VENLAFAXINE HCL XR 150 MG CAPXR PO SCH (09:26)
[2019-01-08] MEDS: APIXABAN 5 MG TABLET PO SCH (09:26)
[2019-01-08] MEDS: INSULIN ASPART 100 UNITS/ML 3 ML PEN SC SCH ×2 (09:27→13:22)
--- NOTE | 2019-01-08 17:07 | Discharge Summary ---
Date of Service January 08, 2019 Admission HPI Per Admitting Provider 83-year-old female with episodes of postprandial nausea mostly in the morning. She has had several studies done and the CT scan reveals evidence of an IVC clot that is partially occlusive extending from the left renal vein down to the right iliac vein. She also has hepatic steatosis and cholelithiasis. The gallbladder is distended but no evidence of acute cholecystitis. She may have chronic gallbladder disease causing the nausea or possibly the nausea is from the IVC thrombus. HIDA scan has been ordered. Dr. Mcdaniel has discussed the case with Dr. Bauer who recommended heparin infusion which has been started. Vascular surgery has been formally consulted to see the patient for their recommendations. She requests a DNR status. No change in bowel habits. No vomiting, hematemesis, melena, hematochezia. No recent weight loss. Admission Exam Per Admitting Provider 83-year-old female with episodes of postprandial nausea mostly in the morning. She has had several studies done and the CT scan reveals evidence of an IVC clot that is partially occlusive extending from the left renal vein down to the right iliac vein. She also has hepatic steatosis and cholelithiasis. The gallbladder is distended but no evidence of acute cholecystitis. She may have chronic gallbladder disease causing the nausea or possibly the nausea is from the IVC thrombus. HIDA scan has been ordered. Dr. Mcdaniel has discussed the case with Dr. Bauer who recommended heparin infusion which has been started. Vascular surgery has been formally consulted to see the patient for their recommendations. She requests a DNR status. No change in bowel habits. No vomiting, hematemesis, melena, hematochezia. No recent weight loss. Principal Diagnosis IVC thrombosis Discharge Exam Constitutional WD/WN, vitals as above Eyes no conjunctival abnormality Respiratory normal respiratory effort; no respiratory distress Cardiovascular Rate/Rhythm: regular rate and regular rhythm Vessels: femoral pulses present Extremities: normal capillary refill; no edema Gastrointestinal (Abdomen) Inspection/Auscultation: abdomen normal to inspection; abdomen not distended Percussion/Palpation: abdomen nontender, no guarding and abdomen not rigid Neurologic normal touch/pain/proprioception and CN's II-XI intact bilaterally Psychiatric Orientation: alert and oriented x 3 Discharge Data Allergies Allergy/AdvReac Type Severity Reaction Status Date / Time aspirin Allergy Unknown Verified 01/06/19 10:18 Penicillins Allergy Unknown Verified 01/06/19 10:18 Consultations 01/06/19 10:34 ED Decision to Admit Stat 01/06/19 12:37 Consult Vascular Surgery Routine Ordered Studies 01/06/19 09:09 CT abd pelvis IV con only Stat 01/07/19 15:09 CT angio abdomen w con Routine Hospital Course (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 - Consulted vascular surgery - Recommend anticoagulation for 3-6 months. No intervention. - Switched to apixiban. - Could not find a cause of hypercoagulability or cause for the thrombus. Will need to assess with heme-onc as outpatient in the next few months. Less of a immediate concern as she will be on anticoagulation for now. (2) RUQ abdominal pain: Possibly due to gastroparesis, IVC thrombus, vs. chronic mesenteric ischemia. Reviewed CT a/p myself and with Dr. Barrera - Some celiac stenosis possible, though not an optimal study to assess. HIDA scan was normal making cholelithiasis less likely. - Got CTA abdomen to rule out chronic mesenteric ischemia. - Will need to pursue gastric emptying study as outpatient (could not get it done inpatient due to recent HIDA scan). - If no improvement, would consider outpatient surgical consult for her cholelithiasis (3) Cholelithiasis: Abdominal pain was thought to be due to cholelithiasis; however, HIDA scan on 01/07 was normal. - No evidence of acute cholecystitis on CT scan or gallbladder ultrasound - I believe the cholelithiasis is incidental. If there is no other etiology found for her morning nausea with eating, could consider outpatient surgical consult. (4) Diabetes mellitus: - ADA diet. - Sliding scale insulin coverage. - Held metformin while inpatient given the contrast. (5) Depression with anxiety: Treated with venlafaxine Total Time Total Time Spent Total Time Spent (In Minutes): 35 Discharge Plan Discharge Items Patient Disposition: Home - Self-Care Reason For Visit: IVC THROMBOSIS, NAUSEA, CHOLELITHASIS Discharge Diagnosis: IVC thrombosis Discharge Goals: Decrease discomfort and Improve nutritional status Activity: Resume your previous activity Non-emergency contact: Primary Care Provider Call non-emergency contact if: you have any medication questions and your symptoms worsen Follow-up/Referrals: Kerry Nicole CRNP [Primary Care Provider] - 01/12/19 10:30 am (Please, follow up at [facility] with Kerry BARLOW on FridayJanuary 12 at 10:30 am. *If you need to change this appointment, ) Diet: Low Fat Addtl Provider Instructions: Ms. Chino, You were admitted to the hospital because you had a clot in a vein in your stomach. You were started on a blood thinner. You have been having nausea and pain in your stomach. We were worried about your gallbladder, but our testing only showed a single gallbladder stone that was not blocking anything. Please follow up with Ms. Rios to see how you feel over the next few days. If you still have nausea and pain, please follow up with the gastric emptying study that we couldn't do while in the hospital. Take the apixaban (Eliquis) 10 mg by mouth two times per day for 3 weeks, then take 5 mg by mouth two times per day approximately 12 hours apart. If all this testing is normal, you may need to speak to a surgeon about having your gallbladder out, but I do not think you need that at this point. Prescriptions: New apixaban 5 mg (74 tabs) tablets,dose pack See Rx Instructions .ROUTE .COMPLEX Qty: 74 RF: 0 Continued cholecalciferol (vitamin D3) 50,000 unit capsule 50,000 units PO WK Qty: 10 RF: 0 cyanocobalamin (vitamin B-12) 1,000 mcg tablet 1,000 mcg PO QAM Qty: 30 RF: 0 ondansetron 4 mg tablet,disintegrating 4 mg PO .dissolve 1 under the PRN (Reason: nausea and vomiting) Qty: 12 RF: 0 tolterodine 2 mg tablet 2 mg PO HS Qty: 90 RF: 1 sucralfate [Carafate] 100 mg/mL suspension 10 ml PO QAM RF: 0 venlafaxine 150 mg capsule,extended release 24hr 150 mg PO QAM RF: 0 pantoprazole 40 mg tablet,delayed release (DR/EC) 40 mg PO QAM RF: 0 metformin 500 mg tablet,ER faith.retention 24 hr 500 mg PO HS RF: 0 Stand-Alone Forms: My [facility]/Other Patient Handouts: Rivaroxaban Oral tablet Rivaroxaban Oral tablet, DVT Prevent Discharge Orders: Discharge Order (Routine); Ordered 01/08/19 Ordered By: Sha Mooney Admission Data Admit Date/Time: 01/06/19 10:57 Attending Provider: Sha Mooney Admit Provider: Cal Wang Primary Care Provider: Kerry Nicole Other Providers: Remi Bauer ; Sha Mooney Service: Medical Other Interventions: Discharge Summary Assessment (RN) Last Done: 01/08/19 13:02 DC Date/Time DO NOT enter until pt leaves facility: 01/08/19 14:28
== END 2019-01-08 14:28 | disposition home or self-care (01) | DRG 295 ==
LOC: ED 08:30 → 3N 10:57 → SUATTDRO 10:57 → 3N 12:11

== ENCOUNTER 2020-11-07 11:23 | Observation (INO) ==
[2020-11-07] MEDS ORDERED: SODIUM CHLORIDE 0.9% 500 ML IV SCH (12:15)
[2020-11-07 12:29] LABS: Basophils # (auto) 0.03 K/uL (0-0.2); Basophils % (auto) 0.5 %; Eosinophils # (auto) 0.08 K/uL (0-0.5); Eosinophils % (auto) 1.4 %; Hematocrit (blood only) 39.2 % (37-47); Hemoglobin 13.7 g/dL (12.0-16.0); Immature Granulocytes # (auto) 0.01 K/uL (0.00-0.02); Immature Granulocytes % (auto) 0.2 %; Lymphocytes # (auto) 1.34 K/uL (1.2-3.4); Mean Corpuscular Hemoglobin 32.6 pg (25-34); Mean Corpuscular Hgb Conc 34.9 g/dL (32-36); Mean Corpuscular Volume 93.3 fL (80-100); Mean Platelet Volume 9.2 fL (7.4-10.4); Monocytes # (auto) 0.48 K/uL (0.11-0.59); Monocytes % (auto) 8.6 %; Neutrophils # (auto) 3.65 K/uL (1.4-6.5); Neutrophils % (auto) 65.3 %; Platelet Count 293 K/uL (130-400); RDW Coefficient of Variation 13.5 % (11.5-14.5); RDW Standard Deviation 46.3 fL (36.4-46.3); White Blood Count 5.59 K/uL (4.8-10.8)
[2020-11-07 12:38] LABS: Partial Thromboplastin Ratio 0.9; Partial Thromboplastin Time 24.4 Seconds (21.0-31.0); Prothrombin Time 10.6 Seconds (9.0-12.0)
--- NOTE | 2020-11-07 12:40 | Emergency Department Note ---
Impression & Plan Acute ischemic stroke, Weakness ED Provider Note NAME: Valerio KIDD AGE: 85 SEX: F : 1935 ARRIVES VIA: Walk-In INFORMANT: Patient, ED PROVIDER(S): Erik Dupree DO CHIEF COMPLAINT: Weakness HPI: The patient is an 85-year-old female who presented to the emergency department with her daughter for an evaluation of generalized weakness and sleepiness. The patient has been having problems with not been able to stay aw ty and will sometimes sleep for 18 hours a day. This is been going on for approximately 1 year. The daughter states that she also feels her mother might be dehydrated. She denies having any chest pain. She does not complain of any difficulty breathing. She does not have any lower extremity swelling. She did have some lower extremity cramping recently and was seen by her primary care physician. Dopplers were negative according to the family member. The patient did have a fall recently where she tripped and hurt her knee. She denies any loss of consciousness. She has had no changes in her medications. She was scheduled for a sleep study by her primary care physician but this was not done yet. There is been no fever. There is been no diarrhea. ROS: See above HPI for pertinent positives & negatives. A total of 10 systems reviewed and were otherwise negative. PAST MEDICAL HISTORY: See Below PAST SURGICAL HISTORY: See Below FAMILY HISTORY: See Below SOCIAL HISTORY: See Below HOME MEDICATIONS: See Below ALLERGIES: See Below VITALS: See Below PHYSICAL EXAMINATION: GENERAL: The patient is awake and alert. She is resting comfortably. EYES: The conjunctivae are clear. The pupils are round and reactive. EARS, NOSE, MOUTH AND THROAT: The nose is without any evidence of any deformity. NECK: The neck is nontender and supple. RESPIRATORY: Normal respiratory effort is noted there is no evidence of wheezing rhonchi or rales CARDIOVASCULAR: Regular rate and rhythm noted there no murmurs rubs or gallops normal S1 normal S2. GASTROINTESTINAL: The abdomen is soft. Abdomen is nontender. MUSCULOSKELETAL/EXTREMITIES: There is no evidence of gross deformity full range of motion is noted in the hips and shoulders. There is a small abrasion with ecchymosis over the left knee. There is no tenderness to palpation or decreased range of motion. SKIN: There is no obvious evidence of any rash. There are no petechiae, pallor or cyanosis noted. NEUROLOGIC: Patient is awake and oriented to person place and situation. She is not oriented to time. Patellar tendon reflexes were 2+ bilaterally. MEDICAL DECISION MAKING: The patient is an 85-year-old female who presented to the emergency department for an evaluation of generalized weakness. The patient's daughter gives most of the history. Apparently the patient's been experiencing symptoms over the course of the last year. It sounds as though she started having some different symptoms recently where she has been sleeping longer than usual. She does have some underlying dementia. She had no focal neurologic deficit but on CAT scan of the head does appear to have signs of a subacute infarct. I discussed the patient's laboratory and radiographic studies with the patient and her daughter. Given these findings I wonder if the patient is having embolic phenomena and may require further work-up to determine the cause of this subacute stroke. I discussed her case with the on-call [facility]. They have agreed to evaluate the patient in the emergency department for further management and disposition. Triage Nursing notes reviewed. Prior medical records reviewed Vital Signs: reviewed and remarkable for elevated blood pressure. Differential diagnosis: Infection, dehydration, metabolic abnormality, hypo/hyperglycemia, electrolyte disturbance, anemia, hypoxia, cardiac sources, intracerebral event, toxicologic, neurologic, as well as other pathologies. ER treatment provided: See below Diagnostics interpreted by me: ECG: EKG was obtained in the emergency department. My interpretation is sinus bradycardia at 59 bpm. There is no ectopy. There is no acute ST segment abnormalities noted. This was compared to a tracing from January 062018. No significant changes were noted. Cardiac Monitoring: An order was placed for continuous cardiac monitoring. The monitor shows a rate of 55 bpm with sinus bradycardia rhythm. Laboratory studies: As stated above and show below. Imaging studies: See below Consultation(s): I discussed this case with Dr. Yeh who is on-call for the [facility]. They will evaluate the patient in the emergency department. Past Med/Surg History Medical History (Updated 11/07/20 @ 17:10 by Erik Dupree DO) Cholelithiasis Depression with anxiety We will contact the patient so that she can call [facility] to get an appointment scheduled with Psychiatry to help with her anxiety and depression. 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 Beliefs That Will Affect Care: None marital status: Current Living Situation: Spouse current occupational status: retired Feels Safe at Home: Yes caffeine: No Dental Care, Regularly: Yes Physical Activity Frequency: Does not Exercise Seatbelt Use: always Sunscreen Use: No Assistive Devices: Cane and Glasses Allergies Allergies Allergy/AdvReac Type Severity Reaction Status Date / Time aspirin Allergy Unknown Verified 11/07/20 15:27 Penicillins Allergy Unknown Verified 11/07/20 15:27 Home Meds Home Medications Medication Instructions Recorded Confirmed ondansetron 4 mg disintegrating 4 mg PO Q4H PRN tab 02/16/19 10/03/20 tablet apixaban 5 mg PO BIDM 11/07/20 11/07/20 bupropion HCl 75 mg PO QAM 11/07/20 11/07/20 gabapentin 300 mg PO HS 11/07/20 11/07/20 metformin 500 mg PO QAM 11/07/20 11/07/20 tolterodine 2 mg PO HS 11/07/20 11/07/20 venlafaxine 75 mg PO QAM 11/07/20 11/07/20 Previous Rx's Medication Instructions Recorded blood sugar diagnostic #50 ea 02/08/20 mirtazapine 7.5 mg tablet 7.5 mg PO DAILY #30 tab 07/18/20 pantoprazole 40 mg tablet,delayed 40 mg PO QAM #30 tab 08/15/20 release donepezil 10 mg tablet 10 mg PO HS #30 tab 08/17/20 Results & Data (ED) Vital Signs Vital Signs - 24 hr 11/07/20 11:25 11/07/20 12:20 11/07/20 12:22 Temperature 36.8 C Temperature Source Temporal Artery Scan Pulse Rate 66 59 L 56 L Pulse Rate from SpO2 Sensor 56 L Respiratory Rate 18 21 18 Respiratory Effort / Characteristics Non-Labored Spontaneous Respiratory Depth Normal Respiratory Pattern Regular Blood Pressure 131/71 145/56 H Blood Pressure Mean 91 85 Blood Pressure Position Sitting Pulse Oximetry 97 97 Oxygen Delivery Method Room Air Room Air Sepsis Recent Fever Within 48 Hours No Sepsis New/Unexplained Change in Mental Status N/A Sepsis Action Taken by Nursing No Action Required 11/07/20 12:25 11/07/20 12:30 11/07/20 12:40 Temperature Temperature Source Pulse Rate 60 56 L Pulse Rate from SpO2 Sensor 61 56 L Respiratory Rate 14 16 Respiratory Effort / Characteristics Respiratory Depth Respiratory Pattern Blood Pressure Blood Pressure Mean Blood Pressure Position Pulse Oximetry 95 95 96 Oxygen Delivery Method Room Air Room Air Room Air Sepsis Recent Fever Within 48 Hours Sepsis New/Unexplained Change in Mental Status Sepsis Action Taken by Nursing 11/07/20 12:53 11/07/20 13:00 11/07/20 13:01 Temperature Temperature Source Pulse Rate 56 L 54 L Pulse Rate from SpO2 Sensor 56 L 56 L 54 L Respiratory Rate 15 17 Respiratory Effort / Characteristics Respiratory Depth Respiratory Pattern Blood Pressure 166/71 H Blood Pressure Mean 102 Blood Pressure Position Pulse Oximetry 97 98 97 Oxygen Delivery Method Room Air Room Air Room Air Sepsis Recent Fever Within 48 Hours Sepsis New/Unexplained Change in Mental Status Sepsis Action Taken by Nursing 11/07/20 13:10 11/07/20 13:20 11/07/20 13:30 Temperature Temperature Source Pulse Rate 53 L 53 L 59 L Pulse Rate from SpO2 Sensor 53 L 53 L 54 L Respiratory Rate 13 16 13 Respiratory Effort / Characteristics Respiratory Depth Respiratory Pattern Blood Pressure Blood Pressure Mean Blood Pressure Position Pulse Oximetry 96 98 98 Oxygen Delivery Method Room Air Room Air Room Air Sepsis Recent Fever Within 48 Hours Sepsis New/Unexplained Change in Mental Status Sepsis Action Taken by Nursing 11/07/20 13:40 11/07/20 14:00 11/07/20 14:01 Temperature Temperature Source Pulse Rate 54 L 59 L 53 L Pulse Rate from SpO2 Sensor 54 L 52 L Respiratory Rate 13 26 H 14 Respiratory Effort / Characteristics Respiratory Depth Respiratory Pattern Blood Pressure 180/76 H Blood Pressure Mean 110 Blood Pressure Position Pulse Oximetry 98 97 Oxygen Delivery Method Room Air Room Air Room Air Sepsis Recent Fever Within 48 Hours Sepsis New/Unexplained Change in Mental Status Sepsis Action Taken by Nursing 11/07/20 14:02 11/07/20 14:10 11/07/20 14:20 Temperature Temperature Source Pulse Rate 49 L 49 L 53 L Pulse Rate from SpO2 Sensor 49 L 50 L 55 L Respiratory Rate 16 14 14 Respiratory Effort / Characteristics Respiratory Depth Respiratory Pattern Blood Pressure Blood Pressure Mean Blood Pressure Position Pulse Oximetry 98 98 98 Oxygen Delivery Method Sepsis Recent Fever Within 48 Hours Sepsis New/Unexplained Change in Mental Status Sepsis Action Taken by Nursing 11/07/20 14:30 11/07/20 14:40 11/07/20 14:50 Temperature Temperature Source Pulse Rate 55 L 55 L 51 L Pulse Rate from SpO2 Sensor 57 L 56 L 53 L Respiratory Rate 22 19 17 Respiratory Effort / Characteristics Respiratory Depth Respiratory Pattern Blood Pressure 165/75 H Blood Pressure Mean 105 Blood Pressure Position Pulse Oximetry 97 99 99 Oxygen Delivery Method Sepsis Recent Fever Within 48 Hours Sepsis New/Unexplained Change in Mental Status Sepsis Action Taken by Nursing 11/07/20 15:00 11/07/20 15:10 11/07/20 15:20 Temperature Temperature Source Pulse Rate 53 L 55 L 55 L Pulse Rate from SpO2 Sensor 54 L 53 L 55 L Respiratory Rate 17 21 21 Respiratory Effort / Characteristics Respiratory Depth Respiratory Pattern Blood Pressure 166/72 H Blood Pressure Mean 103 Blood Pressure Position Pulse Oximetry 97 98 97 Oxygen Delivery Method Sepsis Recent Fever Within 48 Hours Sepsis New/Unexplained Change in Mental Status Sepsis Action Taken by Nursing 11/07/20 15:30 11/07/20 15:40 11/07/20 15:50 Temperature Temperature Source Pulse Rate 52 L 54 L 53 L Pulse Rate from SpO2 Sensor 53 L 54 L 53 L Respiratory Rate 16 19 15 Respiratory Effort / Characteristics Respiratory Depth Respiratory Pattern Blood Pressure Blood Pressure Mean Blood Pressure Position Pulse Oximetry 95 98 96 Oxygen Delivery Method Sepsis Recent Fever Within 48 Hours Sepsis New/Unexplained Change in Mental Status Sepsis Action Taken by Nursing 11/07/20 16:00 11/07/20 16:10 11/07/20 16:20 Temperature Temperature Source Pulse Rate 50 L 49 L 63 Pulse Rate from SpO2 Sensor 50 L 49 L 64 Respiratory Rate 17 12 24 Respiratory Effort / Characteristics Respiratory Depth Respiratory Pattern Blood Pressure 143/66 H Blood Pressure Mean 91 Blood Pressure Position Pulse Oximetry 96 97 98 Oxygen Delivery Method Room Air Sepsis Recent Fever Within 48 Hours Sepsis New/Unexplained Change in Mental Status Sepsis Action Taken by Nursing 11/07/20 16:30 11/07/20 16:40 11/07/20 16:50 Temperature Temperature Source Pulse Rate 55 L 56 L 60 Pulse Rate from SpO2 Sensor 54 L 55 L 60 Respiratory Rate 17 19 18 Respiratory Effort / Characteristics Respiratory Depth Respiratory Pattern Blood Pressure Blood Pressure Mean Blood Pressure Position Pulse Oximetry 96 96 98 Oxygen Delivery Method Sepsis Recent Fever Within 48 Hours Sepsis New/Unexplained Change in Mental Status Sepsis Action Taken by Nursing 11/07/20 17:08 Temperature Temperature Source Pulse Rate 59 L Pulse Rate from SpO2 Sensor 57 L Respiratory Rate 19 Respiratory Effort / Characteristics Respiratory Depth Respiratory Pattern Blood Pressure 156/76 H Blood Pressure Mean 102 Blood Pressure Position Pulse Oximetry 99 Oxygen Delivery Method Sepsis Recent Fever Within 48 Hours Sepsis New/Unexplained Change in Mental Status Sepsis Action Taken by Custodial Medications Current Medication List: was personally reviewed by me Laboratory Data Attestation: I reviewed the patient's lab results. Result diagrams: 11/07/20 12:20 11/07/20 12:20 Lab Results 11/07/20 11/07/20 11/07/20 Range/Units 12:20 12:20 12:20 WBC 5.59 (4.8-10.8) K/uL RBC 4.20 (4.2-5.4) M/uL Hgb 13.7 (12.0-16.0) g/dL Hct 39.2 (37-47) % MCV 93.3 (80-100) fL MCH 32.6 (25-34) pg MCHC 34.9 (32-36) g/dL RDW Std Deviation 46.3 (36.4-46.3) fL RDW Coeff of Anusha 13.5 (11.5-14.5) % Plt Count 293 (130-400) K/uL MPV 9.2 (7.4-10.4) fL Immature Gran % (Auto) 0.2 % Neut % (Auto) 65.3 % Lymph % (Auto) 24.0 % [place] % (Auto) 8.6 % Eos % (Auto) 1.4 % Baso % (Auto) 0.5 % Neut # (Auto) 3.65 (1.4-6.5) K/uL Lymph # (Auto) 1.34 (1.2-3.4) K/uL [place] # (Auto) 0.48 (0.11-0.59) K/uL Eos # (Auto) 0.08 (0-0.5) K/uL Baso # (Auto) 0.03 (0-0.2) K/uL Immature Gran # (Auto) 0.01 (0.00-0.02) K/uL PT 10.6 (9.0-12.0) Seconds INR 1.0 (0.9-1.1) APTT 24.4 (21.0-31.0) Seconds PTT Ratio 0.9 Sodium 142 (136-145) mmol/L Potassium 3.6 (3.5-5.1) mmol/L Chloride 108 H (98-107) mmol/L Carbon Dioxide 27 (21-32) mmol/L Anion Gap 7.0 (3-11) BUN 17 (7-18) mg/dl Creatinine 0.92 (0.6-1.2) mg/dl Est Cr Clr Drug Dosing Not Reportable Est GFR ( Amer) 65.3 ml/min Est GFR (Non-Af Amer) 56.4 ml/min BUN/Creatinine Ratio 18.5 (10-20) Glucose 183 H (70-99) mg/dl Calcium 8.9 (8.5-10.1) mg/dl Magnesium 2.4 (1.8-2.4) mg/dl Total Bilirubin 0.3 (0.2-1) mg/dl AST 16 (15-37) U/L ALT 21 (12-78) U/L Alkaline Phosphatase 61 (45-117) U/L Total Creatine Kinase 59 (26-192) U/L Troponin I < 0.015 (0-0.045) ng/ml Total Protein 6.8 (6.4-8.2) gm/dl Albumin 3.1 L (3.4-5.0) gm/dl Globulin 3.7 (2.5-4.0) gm/dl Albumin/Globulin Ratio 0.8 L (0.9-2) TSH 3.200 (0.300-4.500) uIu/ml Urine Color Urine Appearance (Clear) Urine pH (4.5-7.5) Ur Specific [place] (1.000-1.030) Urine Protein (Negative) Urine Glucose (UA) (Negative) Urine Ketones (Negative) Urine Blood (Negative) Urine Nitrite (Negative) Urine Bilirubin (Negative) Urine Urobilinogen (Negative) Ur Leukocyte Esterase (Negative) Urine WBC (Auto) (0-5) /hpf Urine RBC (Auto) (0-4) /hpf U Hyaline Cast (Auto) (0-5) /lpf U Epithel Cells (Auto) (0-5) /lpf Urine Bacteria (Auto) (Negative) COVID-19 Eval Order SARS-CoV-2 (PCR) (Negative) 11/07/20 11/07/20 11/07/20 Range/Units 14:02 14:30 14:30 WBC (4.8-10.8) K/uL RBC (4.2-5.4) M/uL Hgb (12.0-16.0) g/dL Hct (37-47) % MCV (80-100) fL MCH (25-34) pg MCHC (32-36) g/dL RDW Std Deviation (36.4-46.3) fL RDW Coeff of Anusha (11.5-14.5) % Plt Count (130-400) K/uL MPV (7.4-10.4) fL Immature Gran % (Auto) % Neut % (Auto) % Lymph % (Auto) % [place] % (Auto) % Eos % (Auto) % Baso % (Auto) % Neut # (Auto) (1.4-6.5) K/uL Lymph # (Auto) (1.2-3.4) K/uL [place] # (Auto) (0.11-0.59) K/uL Eos # (Auto) (0-0.5) K/uL Baso # (Auto) (0-0.2) K/uL Immature Gran # (Auto) (0.00-0.02) K/uL PT (9.0-12.0) Seconds INR (0.9-1.1) APTT (21.0-31.0) Seconds PTT Ratio Sodium (136-145) mmol/L Potassium (3.5-5.1) mmol/L Chloride (98-107) mmol/L Carbon Dioxide (21-32) mmol/L Anion Gap (3-11) BUN (7-18) mg/dl Creatinine (0.6-1.2) mg/dl Est Cr Clr Drug Dosing Est GFR ( Amer) ml/min Est GFR (Non-Af Amer) ml/min BUN/Creatinine Ratio (10-20) Glucose (70-99) mg/dl Calcium (8.5-10.1) mg/dl Magnesium (1.8-2.4) mg/dl Total Bilirubin (0.2-1) mg/dl AST (15-37) U/L ALT (12-78) U/L Alkaline Phosphatase (45-117) U/L Total Creatine Kinase (26-192) U/L Troponin I (0-0.045) ng/ml Total Protein (6.4-8.2) gm/dl Albumin (3.4-5.0) gm/dl Globulin (2.5-4.0) gm/dl Albumin/Globulin Ratio (0.9-2) TSH (0.300-4.500) uIu/ml Urine Color Yellow Urine Appearance Clear (Clear) Urine pH 6.0 (4.5-7.5) Ur Specific [place] 1.016 (1.000-1.030) Urine Protein Negative (Negative) Urine Glucose (UA) Trace H (Negative) Urine Ketones Negative (Negative) Urine Blood Negative (Negative) Urine Nitrite Negative (Negative) Urine Bilirubin Negative (Negative) Urine Urobilinogen Negative (Negative) Ur Leukocyte Esterase Trace H (Negative) Urine WBC (Auto) 1-5 (0-5) /hpf Urine RBC (Auto) 0-4 (0-4) /hpf U Hyaline Cast (Auto) 1-5 (0-5) /lpf U Epithel Cells (Auto) >30 H (0-5) /lpf Urine Bacteria (Auto) Negative (Negative) COVID-19 Eval Order Covid19 at [facility] SARS-CoV-2 (PCR) NEGATIVE (Negative) Administered Medications Discontinued Medications Sodium Chloride (Nss) 500 mls @ 999 mls/hr IV .Q31M BOUCHRA Stop: 11/07/20 12:45 Last Infusion: 11/07/20 14:05 Dose: 0 mls/hr Documented by: [id number] Admin: 11/07/20 12:25 Dose: 999 mls/hr Documented by: [id number] Imaging Data Radiologist's Impression: Chest X-Ray 11/07/20 12:07 XR chest 1V portable HISTORY: weakness COMPARISON: Chest 01/06/2019. FINDINGS: No pneumothorax. Trace left pleural effusion. The heart remains borderline enlarged. There is diffuse interstitial thickening, unchanged. This is likely chronic. No new focal lung consolidations to suggest pneumonia. No evidence for pulmonary edema. IMPRESSION: Trace left pleural effusion. Otherwise, no acute process within the chest. ACT 112: Negative or not required by law. Electronically signed by: Jose A Cardozo M.D. 11/07/2020 1:[address] 11/07/20 12:[address] DOSE: 537.48 mGy.cm HISTORY: weakness TECHNIQUE: Multiaxial CT images of the head were performed without the use of intravenous contrast. Automated exposure control was utilized for this study. A dose lowering technique was utilized adhering to the principles of ALARA. Comparison: Head CT 07/10/2020. Findings: The paranasal sinuses and mastoid air cells are clear. The calvarium and skull base are intact. There is no mass, hematoma, or midline shift. White matter hypodensity is nonspecific but suggestive of microvascular ischemic change. The ventricles and sulci demonstrate mild age-related involutional changes. Old lacunar infarct seen within the bilateral basal ganglia. There is an 8 mm hypodense focus within the right anterior thalamus. This favors an acute to subacute lacunar infarct. Impression: 1. An 8 mm acute to subacute right thalamic lacunar infarct. 2. Old bilateral basal ganglia infarcts. ACT 112: Negative or not required by law. Electronically signed by: Jose A Cardozo M.D. 11/07/2020 12:57 PM Discharge Plan Visit Data Chief Complaint: Weakness Stated Complaint: TIREDNESS,WEAKNESS ED Provider: Erik Dupree Discharge Problem: Acute ischemic stroke, Weakness Patient Disposition: Admitted As Inpatient Condition: Good Forms Stand Alone Forms: [facility] Prescriptions Prescriptions: No Action (DME) blood sugar diagnostic [OneTouch Verio test strips] Strip See Rx Instructions .ROUTE .MEDSUPPLY Qty: 50 RF: 5 pantoprazole 40 mg tablet,delayed release (DR/EC) 40 mg PO QAM Qty: 30 RF: 11 mirtazapine 7.5 mg tablet 7.5 mg PO DAILY Qty: 30 RF: 11 Hold Instructions: hold for now. ondansetron 4 mg tablet,disintegrating 4 mg PO Q4H PRN (Reason: nausea and vomiting) RF: 0 Hold Instructions: not using donepezil 10 mg tablet 10 mg PO HS Qty: 30 RF: 5 venlafaxine 75 mg capsule,extended release 24hr 75 mg PO QAM RF: 0 tolterodine 2 mg tablet 2 mg PO HS RF: 0 bupropion HCl 75 mg tablet 75 mg PO QAM RF: 0 gabapentin 300 mg capsule 300 mg PO HS RF: 0 metformin 500 mg tablet,ER faith.retention 24 hr 500 mg PO QAM RF: 0 apixaban 5 mg tablet 5 mg PO BIDM RF: 0 Referrals Referrals: Kerry Nicole CRNP [Primary Care Provider] -
[2020-11-07 12:48] LABS: Alanine Aminotransferase 21 U/L (12-78); Albumin Level 3.1 gm/dl (3.4-5.0); Aspartate Aminotransferase 16 U/L (15-37); BUN Creatinine Ratio 18.5 (10-20); Blood Urea Nitrogen 17 mg/dl (7-18); Calcium 8.9 mg/dl (8.5-10.1); Carbon Dioxide 27 mmol/L (21-32); Chloride 108 mmol/L (98-107); Est GFR (African American) 65.3 ml/min; Est GFR (Non-African American) 56.4 ml/min; Glucose 183 mg/dl (70-99); Magnesium 2.4 mg/dl (1.8-2.4); Potassium 3.6 mmol/L (3.5-5.1); Sodium 142 mmol/L (136-145)
--- NOTE | 2020-11-07 12:59 | CT Scan Report ---
HEAD CT NONCONTRAST CT DOSE: 537.48 mGy.cm HISTORY: weakness TECHNIQUE: Multiaxial CT images of the head were performed without the use of intravenous contrast. A utomated exposure control was utilized for this study. A dose lowering technique was utilized adheri ng to the principles of ALARA. Comparison: Head CT 07/10/2020. Findings: The paranasal sinuses and mastoid air cells are clear. The calvarium and skull base are int act. There is no mass, hematoma, or midline shift. White matter hypodensity is nonspecific but sugges tive of microvascular ischemic change. The ventricles and sulci demonstrate mild age-related involuti onal changes. Old lacunar infarct seen within the bilateral basal ganglia. There is an 8 mm hypodense focus within the right anterior thalamus. This favors an acute to subacute lacunar infarct. Impression: 1. An 8 mm acute to subacute right thalamic lacunar infarct. 2. Old bilateral basal ganglia infarcts. ACT 112: Negative or not required by law. Electronically signed by: Jose A Cardozo M.D. 11/07/2020 12:57 PM
[2020-11-07 13:02] LABS: Albumin Globulin Ratio 0.8 (0.9-2); Alkaline Phosphatase 61 U/L (45-117); Bilirubin,Total 0.3 mg/dl (0.2-1); Creatine Kinase 59 U/L (26-192); Globulin 3.7 gm/dl (2.5-4.0); Total Protein 6.8 gm/dl (6.4-8.2); Troponin I < 0.015 ng/ml (0-0.045)
--- NOTE | 2020-11-07 13:23 | XRay Report ---
XR chest 1V portable HISTORY: weakness COMPARISON: Chest 01/06/2019. FINDINGS: No pneumothorax. Trace left pleural effusion. The heart remains borderline enlarged. There is diffuse interstitial thickening, unchanged. This is likely chronic. No new focal lung consolidatio ns to suggest pneumonia. No evidence for pulmonary edema. IMPRESSION: Trace left pleural effusion. Otherwise, no acute process within the chest. ACT 112: Negative or not required by law. Electronically signed by: Jose A Cardozo M.D. 11/07/2020 1:22 PM
[2020-11-07 14:19] LABS: Appearance Urine Clear (Clear); Bacteria Urine Automated Negative (Negative); Bilirubin Urine Negative (Negative); Blood Urine Negative (Negative); Color Urine Yellow; Epithelial Cell Urine Auto >30 /lpf (0-5); Glucose Urine UA Trace (Negative); Ketones Urine Negative (Negative); Leukocyte Esterase Urine Trace (Negative); Nitrite Urine Negative (Negative); Protein Urine Negative (Negative); RBC Urine Automated 0-4 /hpf (0-4); Specific Gravity Urine 1.016 (1.000-1.030); Urobilinogen Urine Negative (Negative)
--- NOTE | 2020-11-07 14:25 | Electrocardiogram Report ---
Test Reason : Blood Pressure : / mmHG Vent. Rate : 059 BPM Atrial Rate : 059 BPM P-R Int : 200 ms QRS Dur : 086 ms QT Int : 428 ms P-R-T Axes : 063 -08 063 degrees QTc Int : 423 ms Sinus bradycardia Otherwise normal ECG When compared with ECG of 06-JAN-2019 09:17, No significant change was found Confirmed by Erik Puckett ([id number]) on 11/07/2020 2:24:57 PM Referred By: REFERRED SELF Confirmed By:Erik Puckett
--- NOTE | 2020-11-07 18:03 | History & Physical Report ---
Date of Service November 07, 2020 Assessment & Plan (1) Acute ischemic stroke: Mrs Chino is an 85-year-old female with a history of Mixed Alzheimer's and Vascular Dementia, Chronic Bilateral Leg Pain, Gait Disturbance, Nocturnal Hypoxia, prior Pulmonary Emboli, IVC Thrombosis, Depression with Anxiety, GERD, Type 2 Diabetes Mellitus, Generalized Weakness, Carotid Artery Plaques, and Cryptogenic Strokes who presents to the emergency room today with complaints of profound fatigue, and hypersomnia, often sleeping to 15 at hours a day. Patient has experienced this for the past year, and over the past 6 months it has been worse. She has undergone evaluation with both PCP and Neurology, and no etiology has been discovered. A home sleep study was ordered, but the patient did not follow through with it. Patient has been missing some of her morning medications because she sleeps in too long. Patient does not feel well rested when she awakens, and could go right back to sleep. In the ER she was noted to have a acute to subacute right thalamic lacunar infarct and bilateral old basal ganglia infarcts. She has a new ischemic stroke on her CT scan, no hemodynamically significant carotid or vertebral basilar arterial stenoses on carotid Doppler 07/10/2020, and she is chronically anticoagulated with Eliquis (although she may be missing some of her morning doses). Additionally, her TSH is greater than 3 so this may be playing a role. I also suspect that depression plays a role in her hypersomnia as she does not do anything and does not look forward to doing things. She is not suicidal. Recommend the following: -- Admit to Med-Surg with telemetry. -- MRI of the brain is ordered. -- Neurology consult. -- PT/OT evaluations. -- Sleep study ordered in light of her history of nocturnal hypoxemia. -- Consider loop recorder vs cardiac event monitor to assess for atrial fibri llation. She does not have any history of atrial fibrillation or atrial flutter. (2) Hypersomnia: -- Neurology consult. -- PT/OT evaluations. -- Sleep study ordered in light of her history of nocturnal hypoxemia. (3) Fatigue: TSH is greater than 3.0. Check free T3 and T4. Consider initiating treatment if either of these values is low. (4) Depression with anxiety: -- Continue usual medications. -- Consider increasing her Effexor XR dose. (5) Diabetes mellitus: -- Hold Metformin. -- Glycemic pharmacy consult. -- BSG checks. History of Present Illness Chief Complaint: -- Profound Fatigue. -- Hypersomnia. -- Cryptogenic Strokes. Primary Care Provider: CAIN Sparrow Mrs Chino is an 85-year-old female with a history of Mixed Alzheimer's and Vascular Dementia, Chronic Bilateral Leg Pain, Gait Disturbance, Nocturnal Hypoxia, prior Pulmonary Emboli, IVC Thrombosis, Depression with Anxiety, GERD, Type 2 Diabetes Mellitus, Generalized Weakness, Carotid Artery Plaques, and Cryptogenic Strokes who presents to the emergency room today with complaints of profound fatigue, and hypersomnia, often sleeping to 15 at hours a day. Patient has experienced this for the past year, and over the past 6 months it has been worse. She has undergone evaluation with both PCP and Neurology, and no etiology has been discovered. A home sleep study was ordered, but the patient did not follow through with it. Patient has been missing some of her morning medications because she sleeps in too long. Patient does not feel well rested when she awakens, and could go right back to sleep. On further questioning, I asked her what type of things she enjoys doing, and she said we do not do anything. She is and lives with her , he is 88 years old. She does go to doctor's appointments and usually driven there by her daughter, but otherwise she stays at home. She does not read, or have any specific hobbies or things that she wants to do. Patient states that she is eating and drinking normally, although she often times misses breakfast. She has not had any recent changes in her medications. Her daughter has not noticed any personality changes other than she wants to sleep all the time. In the ER she was noted to have a acute to subacute right thalamic lacunar infarct and bilateral old basal ganglia infarcts. Patient denies any focal weakness, numbness, tingling, or paralysis of any extremities. She denies any visual disturbance. No blind spots, black spots, loss of visual otto, or blurry vision. No amaurosis fugax. She denies any problems with urinary or fecal incontinence. Allergies Allergy/AdvReac Type Severity Reaction Status Date / Time aspirin Allergy Unknown Verified 11/07/20 15:27 Penicillins Allergy Unknown Verified 11/07/20 15:27 Home Medications Medication Instructions Recorded Confirmed Type ondansetron 4 mg disintegrating 4 mg PO Q4H PRN tab 02/16/19 10/03/20 History tablet blood sugar diagnostic #50 ea 02/08/20 10/03/20 Rx mirtazapine 7.5 mg tablet 7.5 mg PO DAILY #30 tab 07/18/20 10/03/20 Rx pantoprazole 40 mg tablet,delayed 40 mg PO QAM #30 tab 08/15/20 11/07/20 Rx release donepezil 10 mg tablet 10 mg PO HS #30 tab 08/17/20 11/07/20 Rx apixaban 5 mg PO BIDM 11/07/20 11/07/20 History bupropion HCl 75 mg PO QAM 11/07/20 11/07/20 History gabapentin 300 mg PO HS 11/07/20 11/07/20 History metformin 500 mg PO QAM 11/07/20 11/07/20 History tolterodine 2 mg PO HS 11/07/20 11/07/20 History venlafaxine 75 mg PO QAM 11/07/20 11/07/20 History Past Med/Surg History Medical History Cholelithiasis Depression with anxiety We will contact the patient so that she can call [facility] to get an appointment scheduled with Psychiatry to help with her anxiety and depression. 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 Surgical History History of appendectomy History of hip replacement History of hysterectomy Family History Other Myocardial infarction Denies family history of Ovarian cancer Prostate cancer Breast cancer Colorectal cancer Social History Smoking Status: Never smoker Second Hand Exposure: No; Hx Alcohol Use: No Hx Substance Use: No Preferred Language: Guamanian Communication Ability: Effective Operations Lead Required: No Beliefs That Will Affect Care: None marital status: Current Living Situation: Spouse current occupational status: retired Feels Safe at Home: Yes caffeine: No Dental Care, Regularly: Yes Physical Activity Frequency: Does not Exercise Seatbelt Use: always Sunscreen Use: No Assistive Devices: Cane and Glasses Review of Systems Review of Systems: All systems reviewed & are unremarkable except as noted in Subjective Physical Exam Physical Exam: GENERAL: Patient in no acute distress. HEENT: Head is atraumatic, normocephalic. EOM's intact. Facies symmetric. No perioral cyanosis. NECK: No JVD. JVP is at the level of the clavicle sitting upright. Carotid upstrokes are + 2 bilaterally without bruits. CHEST/LUNGS: Clear to auscultation throughout all lung otto. No wheezes, rales, or crackles. CVS: S1 and S2 are regular without obvious murmurs, gallops, or rubs. PMI is nondisplaced. No lifts, heaves, or thrills. No abdominal aortic or renal bruits. ABDOMINAL EXAM: Bowel sounds are present. No masses, organomegaly, or tenderness. EXTREMITIES: No clubbing or cyanosis. No edema. Intact posterior tibial and radial pulses bilaterally. NEUROLOGIC EXAM: Patient is awake, alert, and interactive. Affect appears normal. Answers questions appropriately. Speech is clear. Normal movement in all 4 extremities -- normal and equal strength in bilateral upper and lower extremities. Sensation intact to light touch over bilateral lower extremities. Gait pattern was not assessed. Analytics Lead shows sinus bradycardia at 58 bpm. Results & Data Results & Data ([facility]) Vital Signs (Past 12 Hours) Vital Signs Temp Pulse Resp BP Pulse Ox 11/07/20 17:08 59 L 19 156/76 H 99 11/07/20 16:50 60 18 98 11/07/20 16:40 56 L 19 96 11/07/20 16:30 55 L 17 96 11/07/20 16:20 63 24 98 11/07/20 16:10 49 L 12 97 11/07/20 16:00 50 L 17 143/66 H 96 11/07/20 15:50 53 L 15 96 11/07/20 15:40 54 L 19 98 11/07/20 15:30 52 L 16 95 11/07/20 15:20 55 L 21 97 11/07/20 15:10 55 L 21 98 11/07/20 15:00 53 L 17 166/72 H 97 11/07/20 14:50 51 L 17 99 11/07/20 14:40 55 L 19 99 11/07/20 14:30 55 L 22 165/75 H 97 11/07/20 14:20 53 L 14 98 11/07/20 14:10 49 L 14 98 11/07/20 14:02 49 L 16 98 11/07/20 14:01 53 L 14 180/76 H 97 11/07/20 14:00 59 L 26 H 11/07/20 13:40 54 L 13 98 11/07/20 13:30 59 L 13 98 11/07/20 13:20 53 L 16 98 11/07/20 13:10 53 L 13 96 11/07/20 13:01 54 L 17 97 11/07/20 13:00 56 L 15 166/71 H 98 11/07/20 12:53 97 11/07/20 12:40 56 L 16 96 11/07/20 12:30 60 14 95 11/07/20 12:25 95 11/07/20 12:22 56 L 18 145/56 H 97 11/07/20 12:20 59 L 21 11/07/20 11:25 36.8 C 66 18 131/71 97 Laboratory Results Laboratory Results - last 24 hr 11/07/20 11/07/20 11/07/20 12:20 12:20 12:20 WBC 5.59 RBC 4.20 Hgb 13.7 Hct 39.2 MCV 93.3 MCH 32.6 MCHC 34.9 RDW Std Deviation 46.3 RDW Coeff of Anusha 13.5 Plt Count 293 MPV 9.2 Immature Gran % (Auto) 0.2 Neut % (Auto) 65.3 Lymph % (Auto) 24.0 Lucas % (Auto) 8.6 Eos % (Auto) 1.4 Baso % (Auto) 0.5 Neut # (Auto) 3.65 Lymph # (Auto) 1.34 Lucas # (Auto) 0.48 Eos # (Auto) 0.08 Baso # (Auto) 0.03 Immature Gran # (Auto) 0.01 PT 10.6 INR 1.0 APTT 24.4 PTT Ratio 0.9 Sodium 142 Potassium 3.6 Chloride 108 H Carbon Dioxide 27 Anion Gap 7.0 BUN 17 Creatinine 0.92 Est Cr Clr Drug Dosing Not Reportable Est GFR ( Amer) 65.3 Est GFR (Non-Af Amer) 56.4 BUN/Creatinine Ratio 18.5 Glucose 183 H Calcium 8.9 Magnesium 2.4 Total Bilirubin 0.3 AST 16 ALT 21 Alkaline Phosphatase 61 Total Creatine Kinase 59 Troponin I < 0.015 Total Protein 6.8 Albumin 3.1 L Globulin 3.7 Albumin/Globulin Ratio 0.8 L TSH 3.200 Urine Color Urine Appearance Urine pH Ur Specific [place] Urine Protein Urine Glucose (UA) Urine Ketones Urine Blood Urine Nitrite Urine Bilirubin Urine Urobilinogen Ur Leukocyte Esterase Urine WBC (Auto) Urine RBC (Auto) U Hyaline Cast (Auto) U Epithel Cells (Auto) Urine Bacteria (Auto) COVID-19 Eval Order SARS-CoV-2 (PCR) 11/07/20 11/07/20 11/07/20 14:02 14:30 14:30 WBC RBC Hgb Hct MCV MCH MCHC RDW Std Deviation RDW Coeff of Anusha Plt Count MPV Immature Gran % (Auto) Neut % (Auto) Lymph % (Auto) Lucas % (Auto) Eos % (Auto) Baso % (Auto) Neut # (Auto) Lymph # (Auto) Lucas # (Auto) Eos # (Auto) Baso # (Auto) Immature Gran # (Auto) PT INR APTT PTT Ratio Sodium Potassium Chloride Carbon Dioxide Anion Gap BUN Creatinine Est Cr Clr Drug Dosing Est GFR ( Amer) Est GFR (Non-Af Amer) BUN/Creatinine Ratio Glucose Calcium Magnesium Total Bilirubin AST ALT Alkaline Phosphatase Total Creatine Kinase Troponin I Total Protein Albumin Globulin Albumin/Globulin Ratio TSH Urine Color Yellow Urine Appearance Clear Urine pH 6.0 Ur Specific [place] 1.016 Urine Protein Negative Urine Glucose (UA) Trace H Urine Ketones Negative Urine Blood Negative Urine Nitrite Negative Urine Bilirubin Negative Urine Urobilinogen Negative Ur Leukocyte Esterase Trace H Urine WBC (Auto) 1-5 Urine RBC (Auto) 0-4 U Hyaline Cast (Auto) 1-5 U Epithel Cells (Auto) >30 H Urine Bacteria (Auto) Negative COVID-19 Eval Order Covid19 at [facility] SARS-CoV-2 (PCR) NEGATIVE Diagnostic Findings CT SCAN HEAD 11/07/20: The paranasal sinuses and mastoid air cells are clear. The calvarium and skull base are intact. There is no mass, hematoma, or midline shift. White matter hypodensity is nonspecific but suggestive of microvascular ischemic change. The ventricles and sulci demonstrate mild age-related involutional changes. Old lacunar infarct seen within the bilateral basal ganglia. There is an 8 mm hypodense focus within the right anterior thalamus. This favors an acute to subacute lacunar infarct. Impression: 1. An 8 mm acute to subacute right thalamic lacunar infarct. 2. Old bilateral basal ganglia infarcts. CXR 11/07/20: No pneumothorax. Trace left pleural effusion. The heart remains borderline enlarged. There is diffuse interstitial thickening, unchanged. This is likely chronic. No new focal lung consolidations to suggest pneumonia. No evidence for pulmonary edema. IMPRESSION: Trace left pleural effusion. Otherwise, no acute process within the chest. Code Status & VTE Plan Code Status DNR/DNI VTE Prophylaxis Plan VTE Prophylaxis will be ordered: Yes Supervising Physician Co-Signing Physician Notes Note reviewed, case discussed with ANTWAN. Agree with his note above. This is an 85-year-old female that presents with a new ischemic stroke on the CT scan. MRI of the brain was ordered at presentation. Patient will need PT/OT evaluation. Continue neurochecks. Assess for atrial fibrillation as noted. Neurology to evaluate for further recommendations. PG Care Time/CCT Total # of Minutes Spent Total Time Spent with Patient: Total time spent is greater than 50% in coordination of care (as documented) at patient's floor/unit and/or counseling patient:40 Coding Level of Care Code 73673 Initial Inpt Care Lvl 3 Diagnoses Acute ischemic stroke I63.9 Hypersomnia G47.10 Fatigue R53.83 Depression with anxiety F41.8 Diabetes mellitus E11.9 Time Spent (min) 55
[2020-11-07] MEDS ORDERED: ACETAMINOPHEN 325 MG TAB PO PRN (19:06)
[2020-11-07] MEDS ORDERED: NITROGLYCERIN SL 0.4 MG/TAB TAB SL PRN (19:06)
[2020-11-07] MEDS ORDERED: ZOLPIDEM TARTRATE 5 MG TAB PO PRN (19:06)
[2020-11-07] MEDS ORDERED: POLYETHYLENE (MIRALAX) 17 GM PACK PO PRN (19:06)
[2020-11-07] MEDS ORDERED: ONDANSETRON INJ 2 MG/ML 2 ML VIAL IV PRN (19:06)
[2020-11-07] MEDS ORDERED: MAGNESIUM HYDROXIDE SUSP 30 ML UDC PO PRN (19:06)
[2020-11-07] MEDS ORDERED: ALUMINUM/MAGNESIUM SUSP 30 ML UDC PO PRN (19:06)
[2020-11-07] MEDS ORDERED: PHARMACY GLYCEMIC MGMT CONSULT PRN (19:14)
[2020-11-07] MEDS ORDERED: CARBOHYDRATES FOR HYPOGLYCEMIA PO PRN (19:30)
[2020-11-07] MEDS ORDERED: DEXTROSE 50% 50 ML SYRINGE IV PRN (19:30)
[2020-11-07] MEDS ORDERED: GLUCOSE 10 TABS/TUBE PO PRN (19:30)
[2020-11-07] MEDS ORDERED: GLUCOSE 40% GEL 15 GM TUBE PO PRN (19:30)
[2020-11-07] MEDS ORDERED: GLUCAGON FOR INJ 1 MG VIAL IM PRN (19:30)
[2020-11-07] MEDS ORDERED: GADOBUTROL 65ML VIAL IV ONE (20:44)
--- NOTE | 2020-11-07 20:59 | Magnetic Resonance Report ---
MRI OF THE BRAIN WITHOUT AND WITH IV CONTRAST CLINICAL HISTORY: Vascular dementia, hypersomnia WEAKNESS, HEADACHES. COMPARISON STUDY: CT scan dated 11/07/2020 TECHNIQUE: MRI of the brain was performed from the vertex to the skull base utilizing various T1 and T2 weighted sequences. Following the IV administration of 6 mL of Gadavist contrast, additional enhan caron images were obtained. FINDINGS: Sagittal T1, axial diffusion, proton density and T2 weighted axial, coronal FLAIR, and pre and post a xial T1-weighted images were acquired. These were supplemented with post gadolinium coronal T1 weight ed images. No intra or extra-axial mass lesions are visualized. Axial diffusion-weighted images reveal no evidence of acute or subacute infarction. There is no evidence of ventricular dilatation. Proton density T2-weighted and FLAIR images reveal scattered foci of increased T2 signal within the w paulo matter, likely on a small vessel basis. There are old basal ganglial lacunar infarcts. There is an old left frontal lobe infarct. There are no abnormal flow voids. There is no evidence of pathologic enhancement. IMPRESSION: 1. No acute intracranial findings 2. No evidence of acute or subacute infarction 3. No evidence of intracranial mass 4. Moderate white matter disease likely small vessel ischemic basis. Old left frontal lobe infarct. O ld bilateral basal ganglia lacunar infarcts. ACT 112: Negative or not required by law. Electronically signed by: Jorden Barrera M.D. 11/07/2020 8:58 PM
[2020-11-07] MEDS ORDERED: HEPARIN SOD 5,000 UNIT/0.5 ML VIAL SQ SCH (21:00)
[2020-11-07] MEDS ORDERED: DONEPEZIL HCL 10 MG TAB PO SCH (21:00)
[2020-11-07] MEDS ORDERED: MIRTAZAPINE TAB 15 MG TAB PO SCH (21:00)
[2020-11-07] MEDS ORDERED: TOLTERODINE TARTRATE 2 MG TAB PO SCH (21:00)
[2020-11-07] MEDS: APIXABAN 5 MG TABLET PO SCH (21:08)
[2020-11-07] MEDS: INSULIN ASPART 100 UNITS/ML 3 ML PEN SC SCH (21:16)
[2020-11-08 04:14] LABS: Cdiff Antigen Negative; Cdiff Toxin A+B Negative Cdiff Toxin (Negative)
[2020-11-08] MEDS: APIXABAN 5 MG TABLET PO SCH (07:28)
[2020-11-08 08:12] LABS: Basophils # (auto) 0.01 K/uL (0-0.2); Basophils % (auto) 0.1 %; Eosinophils # (auto) 0.06 K/uL (0-0.5); Eosinophils % (auto) 0.7 %; Hemoglobin 13.9 g/dL (12.0-16.0); Immature Granulocytes # (auto) 0.01 K/uL (0.00-0.02); Immature Granulocytes % (auto) 0.1 %; Lymphocytes # (auto) 1.29 K/uL (1.2-3.4); Lymphocytes % (auto) 14.2 %; Mean Corpuscular Hemoglobin 33.1 pg (25-34); Mean Corpuscular Hgb Conc 35.6 g/dL (32-36); Mean Corpuscular Volume 92.9 fL (80-100); Mean Platelet Volume 9.2 fL (7.4-10.4); Monocytes # (auto) 0.76 K/uL (0.11-0.59); Monocytes % (auto) 8.4 %; Neutrophils # (auto) 6.93 K/uL (1.4-6.5); Neutrophils % (auto) 76.5 %; Platelet Count 302 K/uL (130-400); RDW Coefficient of Variation 13.5 % (11.5-14.5); RDW Standard Deviation 45.9 fL (36.4-46.3); White Blood Count 9.06 K/uL (4.8-10.8)
[2020-11-08] MEDS: INSULIN ASPART 100 UNITS/ML 3 ML PEN SC SCH ×3 (08:17→16:58)
[2020-11-08 08:53] LABS: BUN Creatinine Ratio 16.4 (10-20); Calcium 9.2 mg/dl (8.5-10.1); Est GFR (African American) 82.3 ml/min; Potassium 3.7 mmol/L (3.5-5.1)
[2020-11-08] MEDS ORDERED: PANTOprazole 40 MG TAB PO SCH (09:00)
[2020-11-08] MEDS ORDERED: GABAPENTIN 300 MG CAP PO SCH (09:00)
[2020-11-08] MEDS ORDERED: CYANOCOBALAMIN 500 MCG TABLET (VITAMIN B-12) PO SCH (09:00)
[2020-11-08] MEDS ORDERED: buPROPion HCl 75 MG TABLET PO SCH (09:00)
[2020-11-08] MEDS ORDERED: VENLAFAXINE HCL XR 75 MG CAPXR PO SCH (09:00)
[2020-11-08 12:57] LABS: Lyme Ab IgG w/WB Rflx Negative (Negative); Lyme Ab IgM w/WB Rflx Negative (Negative)
--- NOTE | 2020-11-08 14:15 | XCELERA ---
[id number]
--- NOTE | 2020-11-08 14:21 | Neurology Consultation ---
Date of Consultation November 08, 2020 Assessment & Plan (1) Mixed Alzheimer's and vascular dementia: Rita Chino is an 85 yo woman w/ PMH of Alzheimer's disease c/b hallucinations/behavioral issues, depression/anxiety, h/o DVT/PE on apixaban, DM, h/o tobacco abuse, osteoporosis, GERD, and h/o lacunar infarcts without residual deficits who p/t [facility] with chronic generalized weakness and sleepiness that started over one year ago. She is scheduled for an outpatient sleep study in the near future but family brought her in due to symptoms and c/f dehydration. # Dementia c/b hallucinations, generalized weakness and excessive sleepiness: in looking at her medication list, there is significant polypharmacy with regards to her underlying depression/anxiety and medications in general. - recommend increasing mirtazapine to 15mg-30mg nightly as lower doses are a/w s omnolence (only if she is taking at home; it appears that this is currently on hold per the MAR) - recommend psychiatry consultation to consider whether it would be better to continue just venlafaxine or just bupropion for mood as there is increased risk of drowsiness/sleeplessness when on both of these medications (would lean towards continuing venlafaxine given seizure risk potential with bupropion) - would consider alternative to tolterodine for urinary issues given potential anti-cholinergic side effects - would also consider holding protonix given dementia/Beers criteria - agree with sleep study - continue home donepezil 10mg daily - recommend contact the area department of aging to have more resources set up at home to help him and family with care taking/consider home PT. # H/o multiple strokes: no acute or subacute stroke noted on MRI brain. Most recent A1c 6.2, LDL 167. Strokes are lacunar in nature and she should maximize medical therapy for prevention of further strokes - would check lipid panel and consider starting atorvastatin 40mg nightly - continue home apixaban - work with PCP on stroke prevention goals, (A1c<7, LDL<70, BP<130/80) Thank you for this interesting consult. Plan of care discussed with primary team. Please call or text questions. 40 minutes was spent [id number] with patient, with more than 50% spent on counseling/coordination of care/charting. (2) Weakness: (3) Depression with anxiety: (4) H/O: stroke: (5) Nocturnal hypoxia: (6) Hallucinations: History of Present Illness Attending Physician: Kiel Blake MD History of Present Illness Rita Chino is an 85 yo woman w/ PMH of Alzheimer's disease c/b hallucinations/behavioral issues, depression/anxiety, h/o DVT/PE on apixaban, DM, h/o tobacco abuse, osteoporosis, GERD, and h/o lacunar infarcts without residual deficits who p/t [facility] with chronic generalized weakness and sleepiness that started over one year ago. She is scheduled for an outpatient sleep study in the near future but family brought her in due to symptoms and c/f dehydration. In the ED, she was afebrile, BP 131/71, heart rate 66, respiratory 18, satting 97% on room air. Labs notable for WBC 5.59, hemoglobin 13.7, platelets 293 electrolytes within, creatinine 0.92 with GFR 56.4, INR 1.0, glucose 183, LFTs within normal, troponin negative, CK 59, TSH within normal, UA no infection, Covid negative. Imaging independently reviewed. CT head shows no hemorrhage, chronic strokes in bilateral putamen/basal ganglia (right larger than left), and hypodensity in the right thalamus. MRI brain shows chronic infarcts in the left frontal lobe, bilateral basal ganglia, and right thalamus, moderate to severe SVID, and mild to moderate generalized atrophy with ex vacuo dilation. On examination, she reports that she has been having issues with sleeping too much and pain with walking around. reports that he is the main spray foam installer and family is concerned about the increased sleeping over the last few months to one year (up to 18 hours per day). Reports that he does not get services at home to take care of her despite his advanced age himself. Has not done PT recently. Unsure of home medications, reports giving a list in the ED. Allergies Allergy/AdvReac Type Severity Reaction Status Date / Time aspirin Allergy Unknown Verified 11/07/20 15:27 Penicillins Allergy Unknown Verified 11/07/20 15:27 Home Medications Medication Instructions Recorded Confirmed Type ondansetron 4 mg disintegrating 4 mg PO Q4H PRN tab 02/16/19 10/03/20 History tablet blood sugar diagnostic #50 ea 02/08/20 10/03/20 Rx mirtazapine 7.5 mg tablet 7.5 mg PO DAILY #30 tab 07/18/20 10/03/20 Rx pantoprazole 40 mg tablet,delayed 40 mg PO QAM #30 tab 08/15/20 11/07/20 Rx release donepezil 10 mg tablet 10 mg PO HS #30 tab 08/17/20 11/07/20 Rx apixaban 5 mg PO BIDM 11/07/20 11/07/20 History bupropion HCl 75 mg PO QAM 11/07/20 11/07/20 History gabapentin 300 mg PO HS 11/07/20 11/07/20 History metformin 500 mg PO QAM 11/07/20 11/07/20 History tolterodine 2 mg PO HS 11/07/20 11/07/20 History venlafaxine 75 mg PO QAM 11/07/20 11/07/20 History Patient History Medical History (Updated 11/08/20 @ 14:31 by Ashleigh Villegas MD) Cholelithiasis Depression with anxiety We will contact the patient so that she can call [facility] to get an appointment scheduled with Psychiatry to help with her anxiety and depression. 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 Surgical History History of appendectomy History of hip replacement History of hysterectomy Family History Other Myocardial infarction Denies family history of Ovarian cancer Prostate cancer Breast cancer Colorectal cancer Social History Smoking Status: Never smoker Second Hand Exposure: No; Hx Alcohol Use: No Hx Substance Use: No Preferred Language: Beninese Communication Ability: Effective Legal Financial Specialist Required: No Beliefs That Will Affect Care: None marital status: Current Living Situation: Spouse Current Living Situation Comment: current occupational status: retired Other Information That Helps Us Care for You: No Feels Safe at Home: Yes Safety Concerns: Feels Safe At This Time caffeine: No Dental Care, Regularly: Yes Physical Activity Frequency: Does not Exercise Seatbelt Use: always Sunscreen Use: No Assistive Devices: Cane and Walker Review of Systems Review of Systems: Unobtainable due to cognitive status Exam (Neuro) Physical Exam: General Exam: GEN: NAD, sitting in chair. HEENT: No conjunctival injection, no rhinorrhea. CV: RRR, no peripheral edema PULM: Nonlabored respirations on room air. Neuro Exam: MS: Awake and Alert. Oriented to person, place, and month/year. Speech fluent and appropriate without dysarthria or paraphasic errors. Language intact including naming, comprehension, repetition. Cognition and memory mildly impaired. Attention intact. No neglect. CN: Visual otto full. EOMI without nystagmus. Facial sensation intact to LT. Facial muscles full and symmetric. Hearing intact to conversation. Shoulder shrug normal. Tongue midline. MOTOR: Normal bulk and tone. No pronator drift. All extremities antigravity without drift. SENSORY: Intact to LT without extinction to double simultaneous stimuli. COORDINATION: No dysmetria or ataxia on [id number] bilaterally. Normal Naresh bilaterally. GAIT: deferred given physical status Results & Data ([facility]) Vital Signs (Past 12 Hours) Vital Signs Temp Pulse Resp BP Pulse Ox 11/08/20 11:43 37 C 61 18 118/65 96 11/08/20 08:00 36.6 C 68 18 150/72 H 11/08/20 04:54 36.7 C 61 18 154/76 H 96 PG Care Time/CCT Total # of Minutes Spent Total Time Spent with Patient: Total time spent is greater than 50% in coordination of care (as documented) at patient's floor/unit and/or counseling patient: Coding Level of Care Code 26876 Office/Outpt Visit, Est Diagnoses Mixed Alzheimer's and vascular dementia G30.9; F01.50; F02.80 Weakness R53.1 Depression with anxiety F41.8 H/O: stroke Z86.73 Nocturnal hypoxia G47.34 Hallucinations R44.3
--- NOTE | 2020-11-08 16:35 | Psychiatric Consultation ---
Date of Consultation November 08, 2020 Impression / Recommendations Impression 85 yo female with a history of anxiety, was chronically benzo dependent (as prescribed) for decades until tapered few years ago, subsequent trials of Effexor (?failed taper) and Remeron with recent addition of Wellbutrin. Presentation is consistent with mild anticholinergic delirium with urinary retention and non-psychotic hallucinations, though their description of her pm routine is also consistent with sundowning. These phenomena are also more common post stroke, luckily no agitation/aggression. I would d/c Remeron (no currently prescribed in hospital) rather than increase it as they deny depression and she is hypersomnolent and it can contribute to anticholinergic effects. Would avoid Wellbutrin given her baseline anxiety and poses some seizure risk post stroke. It is also dopaminergic and can contribute to worsening hallucinations. Re: Effexor XR 75 mg they would prefer to taper and reassess. Would prescribe 37.5 mg for a few days to limit any discontinuation syndrome. Continue work up re: sleep and I defer dosing of neurontin to medical but I've seen issues with clearance in elderly even if not needing renal adjustment of dosing. If she experiences breakthrough anxiety after current psych meds have cleared, I'd suggest next step is low dose Buspar. They would prefer to continue with primary care rather than return to [facility]. There is no indication for inpatient psychiatric care. Risk Factors Assessment Do You Have Access To A Gun?: No Psych History Identifying Data Mrs. Chino is an 85 yo female with a history of hyersomnia, Alzheimer's, hallucinations, nocturnal hypoxia and stroke. Consult is by Dr. Blake for polypharmacy. Chief Complaint "I think I'm on too much medicine but I've always had problems with her nerves". History of Present Illness Consult also suggested by neurology. at bedside and generally oversees her medications, doesn't seem clear if he has been giving mirtazapine or not, possible recommendation to increase as less sedating. Both the patient and her state that her issues have been primarily related to anxiety over the years, starting to have more issues in 2019 after Xanax was tapered after decades of treatment. Antidepressants since then haven't been particularly effective. She does feel more restless toward evening, sometimes overly activated by tv, and will experience illusions or auditory hallucinations in the evening. She states most typical one is hearing kids playing at the park after dark when no one is there. They do not happen upon awakening. and daughter have expressed concerns that she is sleeping up to 18 hrs a day, can't seem to urinate fully, and is less interested in things due to the sedation. They deny depression. On review of chart, notes from [facility] were reviewed, no current care there, med managment per [facility] (note reviewed), recent edition of Wellbutrin as a trial for fatigue. It appears there have been some concerns about taking meds at appropriate times as Neurontin was somehow shifted to the am in the past. Denies sleep attacks when younger. Past Psychiatric History Previous Psych History: no formal, longstanding benzo rx by PCP Current Psychiatric Diagnosis: generalized anxiety, mild cognitive impairment Outpatient Services: no specialized services recently, [phone] [facility] Sarah Case PA-C Previous Psych Admissions: none Do You Have Access To A Gun?: No History of Previous Suicide Attempt: No Past Medication Trials: current meds, Xanax, Klonopin when Xanax finally tapered. Higher doses of Effexor XR in past (150 mg) Allergies Allergy/AdvReac Type Severity Reaction Status Date / Time aspirin Allergy Unknown Verified 11/07/20 15:27 Penicillins Allergy Unknown Verified 11/07/20 15:27 Home Medications Medication Instructions Recorded Confirmed Type ondansetron 4 mg disintegrating 4 mg PO Q4H PRN tab 02/16/19 10/03/20 History tablet blood sugar diagnostic #50 ea 02/08/20 10/03/20 Rx mirtazapine 7.5 mg tablet 7.5 mg PO DAILY #30 tab 07/18/20 10/03/20 Rx pantoprazole 40 mg tablet,delayed 40 mg PO QAM #30 tab 08/15/20 11/07/20 Rx release donepezil 10 mg tablet 10 mg PO HS #30 tab 08/17/20 11/07/20 Rx apixaban 5 mg PO BIDM 11/07/20 11/07/20 History bupropion HCl 75 mg PO QAM 11/07/20 11/07/20 History gabapentin 300 mg PO HS 11/07/20 11/07/20 History metformin 500 mg PO QAM 11/07/20 11/07/20 History tolterodine 2 mg PO HS 11/07/20 11/07/20 History venlafaxine 75 mg PO QAM 11/07/20 11/07/20 History Family History anxiety, mother had primary hypersomnia. Substance Abuse History denied Personal History Living Arrangements: Home (with ) Employment Status: Retired Marital Status: Number Of Children: daughter local Beliefs That Will Affect Care: None Psychological Trauma History Comment: denied Patient History Medical History Cholelithiasis Depression with anxiety We will contact the patient so that she can call [facility] to get an appointment scheduled with Psychiatry to help with her anxiety and depression. 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 Surgical History History of appendectomy History of hip replacement History of hysterectomy Family History Other Myocardial infarction Denies family history of Ovarian cancer Prostate cancer Breast cancer Colorectal cancer Social History Smoking Status: Never smoker Second Hand Exposure: No; Hx Alcohol Use: No Hx Substance Use: No Preferred Language: Angolan Communication Ability: Effective Registered Nurse Hh Case Manager Required: No Beliefs That Will Affect Care: None marital status: Current Living Situation: Spouse Current Living Situation Comment: current occupational status: retired Other Information That Helps Us Care for You: No Feels Safe at Home: Yes Safety Concerns: Feels Safe At This Time caffeine: No Dental Care, Regularly: Yes Physical Activity Frequency: Does not Exercise Seatbelt Use: always Sunscreen Use: No Assistive Devices: Cane and Walker Physical Exam Psychiatric: Orientation: alert, oriented to person and oriented to place Apperance: appropriately groomed Eye Contact: good eye contact Motor Behavior: + tremor Speech: normal rate/rhythm/volume of speech Affect: euthymic affect Mood: + anxious mood Thought Process: + concrete thought process Thought Content: reality based without delusions Suicidal Thoughts: denies suicidal thoughts Homicidal Thoughts: denies homicidal thoughts Hallucinations: no auditory hallucinations and no visual hallucinati ons Cognition: attention grossly intact Estimated Intelligence: consistent with education level Insight: + limited insight Judgement: + limited judgement Vital Signs (Past 24 Hours): Last Vital Signs Temp 37.1 C 11/08/20 15:00 Pulse 68 11/08/20 15:00 Resp 18 11/08/20 15:00 BP 124/68 11/08/20 15:00 Pulse Ox 96 11/08/20 15:00 Review of Systems All systems reviewed & are unremarkable except as noted in HPI & below Results & Data (PSY) Medications Administered Apixaban (Apixaban 5 Mg Tablet) 5 mg PO BID BOUCHRA Stop: 12/07/20 20:59 Last Admin: 11/08/20 07:28 Dose: 5 mg Documented by: [id number] Admin: 11/07/20 21:08 Dose: 5 mg Documented by: [id number] Cyanocobalamin (Cyanocobalamin 500 Mcg Tablet (Vitamin B-12)) 1,000 mcg PO QAM BOUCHRA Stop: 12/08/20 08:59 Last Admin: 11/08/20 07:28 Dose: 1,000 mcg Documented by: [id number] Donepezil HCl (Donepezil Hcl 10 Mg Tab) 10 mg PO [facility] Stop: 12/07/20 20:59 Last Admin: 11/07/20 21:08 Dose: 10 mg Documented by: [id number] Gabapentin (Gabapentin 300 Mg Cap) 300 mg PO DAILY BOUCHRA Stop: 12/08/20 08:59 Last Admin: 11/08/20 07:28 Dose: 300 mg Documented by: [id number] Insulin Aspart (Insulin Aspart 100 Units/Ml 3 Ml Pen) 0 units SC ACHS BOUCHRA Stop: 12/07/20 20:59 Last Admin: 11/08/20 12:20 Dose: 4 units Documented by: [id number] Cosigned by: [id number] Admin: 11/08/20 08:17 Dose: 3 units Documented by: [id number] Cosigned by: [id number] Admin: 11/07/20 21:16 Dose: Not Given Documented by: [id number] Cosigned by: [id number] Pantoprazole Sodium (Pantoprazole 40 Mg Tab) 40 mg PO QAM BOUCHRA Stop: 12/08/20 08:59 Last Admin: 11/08/20 07:28 Dose: 40 mg Documented by: [id number] Tolterodine Tartrate (Tolterodine Tartrate 2 Mg Tab) 2 mg PO [facility] Stop: 12/07/20 20:59 Last Admin: 11/07/20 21:09 Dose: 2 mg Documented by: [id number] Coding Level of Care Code 00514 [facility] Intl Hosp Care Lvl 3
[2020-11-09] MEDS ORDERED: VENLAFAXINE HCL XR 37.5 MG CAPXR PO SCH (09:00)
--- NOTE | 2020-11-15 13:16 | Discharge Summary ---
Date of Service November 08, 2020 Admission HPI Per Admitting Provider Mrs Chino is an 85-year-old female with a history of Mixed Alzheimer's and Vascular Dementia, Chronic Bilateral Leg Pain, Gait Disturbance, Nocturnal Hypoxia, prior Pulmonary Emboli, IVC Thrombosis, Depression with Anxiety, GERD, Type 2 Diabetes Mellitus, Generalized Weakness, Carotid Artery Plaques, and Cryptogenic Strokes who presents to the emergency room today with complaints of profound fatigue, and hypersomnia, often sleeping to 15 at hours a day. Patient has experienced this for the past year, and over the past 6 months it has been worse. She has undergone evaluation with both PCP and Neurology, and no etiology has been discovered. A home sleep study was ordered, but the patient did not follow through with it. Patient has been missing some of her morning medications because she sleeps in too long. Patient does not feel well rested when she awakens, and could go right back to sleep. On further questioning, I asked her what type of things she enjoys doing, and she said we do not do anything. She is and lives with her , he is 88 years old. She does go to doctor's appointments and usually driven there by her daughter, but otherwise she stays at home. She does not read, or have any specific hobbies or things that she wants to do. Patient states that she is eating and drinking normally, although she often times misses breakfast. She has not had any recent changes in her medications. Her daughter has not noticed any personality changes other than she wants to sleep all the time. In the ER she was noted to have a acute to subacute right thalamic lacunar infarct and bilateral old basal ganglia infarcts. Patient denies any focal weakness, numbness, tingling, or paralysis of any extremities. She denies any visual disturbance. No blind spots, black spots, loss of visual otto, or blurry vision. No amaurosis fugax. She denies any problems with urinary or fecal incontinence. Admission Exam Per Admitting Provider GENERAL: Patient in no acute distress. HEENT: Head is atraumatic, normocephalic. EOM's intact. Facies symmetric. No perioral cyanosis. NECK: No JVD. JVP is at the level of the clavicle sitting upright. Carotid upstrokes are + 2 bilaterally without bruits. CHEST/LUNGS: Clear to auscultation throughout all lung otto. No wheezes, rales, or crackles. CVS: S1 and S2 are regular without obvious murmurs, gallops, or rubs. PMI is nondisplaced. No lifts, heaves, or thrills. No abdominal aortic or renal bruits. ABDOMINAL EXAM: Bowel sounds are present. No masses, organomegaly, or tenderness. EXTREMITIES: No clubbing or cyanosis. No edema. Intact posterior tibial and radial pulses bilaterally. NEUROLOGIC EXAM: Patient is awake, alert, and interactive. Affect appears normal. Answers questions appropriately. Speech is clear. Normal movement in all 4 extremities -- normal and equal strength in bilateral upper and lower extremities. Sensation intact to light touch over bilateral lower extremities. Gait pattern was not assessed. Principal Diagnosis Hypersomnia, Vascular dementia Discharge Exam Constitutional well developed and + frail appearing Eyes PERRL, conjunctivae normal, anicteric sclerae Respiratory normal respiratory effort, lungs clear to auscultation Cardiovascular RRR, no murmur, no edema Gastrointestinal (Abdomen) normal bowel sounds, soft, nontender, no hepatosplenomegaly Skin no rashes, warm and dry Neurologic moves all extremities and awake; not confused Psychiatric A+Ox3, euthymic affect Genitourinary no CVA tenderness Discharge Data Allergies Allergy/AdvReac Type Severity Reaction Status Date / Time aspirin Allergy Unknown Verified 11/10/20 15:05 Penicillins Allergy Unknown Verified 11/10/20 15:05 Consultations 11/07/20 14:30 ED Decision to Admit Stat 11/07/20 19:06 Consult Neurology Routine 11/08/20 15:08 Consult Psychiatry Routine Ordered Studies 11/07/20 12:07 CT head/brain wo con Stat 11/07/20 19:06 MR brain wo/w con Routine Hospital Course (1) Hypersomnia: Rita Chino is an 85 year old female observed at [facility] from November 07-2020 due to concern for acute stroke. Subsequent MRI showed no acute CVA. For your ongoing issues with hypersomnolence she is on multiple medications likely contributing towards this and neurology and psychiatry have recommended changes to these. Recommend these are slowly changed over time to see what makes a positive or negative effect. For now recommend stopping bupropion and following up with her primary care physician for ongoing changes. (2) Fatigue: (3) Depression with anxiety: (4) Diabetes mellitus: Total Time Total Time Spent Total Time Spent (In Minutes): 40 Total Time Includes: Examination of the Patient, Discharge Planning, Medication Reconciliation and Communication With Other Providers Discharge Plan Discharge Items Patient Disposition: Home - Home Health Services Reason For Visit: HYPERSOMNIA, VASCULAR DEMENTIA Discharge Diagnosis: Hypersomnia, Vascular dementia Condition on Discharge: Good Activity: Resume your previous activity Non-emergency contact: Primary Care Provider Call non-emergency contact if: you have any medication questions and your symptoms worsen Follow-up/Referrals: Keryr Nicole CRNP [Primary Care Provider] - Diet: Regular Addtl Attending Provider Instructions: You were observed at [facility] from November 07-2020 due to concern for acute stroke. Subsequent MRI showed no acute CVA. For your ongoing issues with hypersomnolence you are on multiple medications likely contributing towards this and neurology and psychiatry have recommended changes to these. Recommend these are slowly changed over time to see what makes a positive or negative effect. For now recommend coming off your buproprion and following up with your primary care physician for ongoing changes. Kind regards, Dr Kiel Blake Pending Studies at Discharge: No Stand-Alone Forms: My [facility], Smoking Cessation Medications and DC Order Prescriptions: Continued (DME) blood sugar diagnostic [OneTouch Verio test strips] Strip See Rx Instructions .ROUTE .MEDSUPPLY Qty: 50 RF: 5 pantoprazole 40 mg tablet,delayed release (DR/EC) 40 mg PO QAM Qty: 30 RF: 11 donepezil 10 mg tablet 10 mg PO HS Qty: 30 RF: 5 venlafaxine 75 mg capsule,extended release 24hr 75 mg PO QAM RF: 0 tolterodine 2 mg tablet 2 mg PO HS RF: 0 gabapentin 300 mg capsule 300 mg PO HS RF: 0 apixaban 5 mg tablet 5 mg PO BIDM RF: 0 Discontinued mirtazapine 7.5 mg tablet 7.5 mg PO DAILY Qty: 30 RF: 11 Hold Instructions: hold for now. bupropion HCl 75 mg tablet 75 mg PO QAM RF: 0 No Action metformin 500 mg tablet,ER faith.retention 24 hr 500 mg PO QAM Qty: 90 RF: 0 Discharge Orders: Discharge Order (Routine); Ordered 11/08/20 Ordered By: Kiel Blake Admission Data Admit Date/Time: 11/07/20 15:11 Attending Provider: Kiel Blake Admit Provider: Abel Yeh Primary Care Provider: Kerry Nicole Other Providers: Abel Yeh ; Ashleigh Villegas ; Kerry Aguayo ; [facility], ; Sun Goss ; Jhonathan Florez ; [facility] Other Interventions: Discharge Summary Assessment (RN) Last Done: 11/08/20 17:47 Coding Level of Care Code 84481 OBS Care - Discharge Diagnoses Hypersomnia G47.10 Fatigue R53.83 Depression with anxiety F41.8 Diabetes mellitus E11.9
== END 2020-11-08 18:05 | disposition home health service (06) ==
LOC: ED 11:23 → 2W 11:23 → SUATTDRO 15:11 → 2W 18:34

== ENCOUNTER 2021-08-02 19:35 | Inpatient (IN) ==
[2021-08-02 20:35] LABS: Basophils # (auto) 0.01 K/uL (0-0.2); Basophils % (auto) 0.1 %; Eosinophils # (auto) 0.07 K/uL (0-0.5); Eosinophils % (auto) 0.7 %; Hematocrit (blood only) 41.7 % (37-47); Hemoglobin 14.1 g/dL (12.0-16.0); Immature Granulocytes # (auto) 0.03 K/uL (0.00-0.02); Immature Granulocytes % (auto) 0.3 %; Lymphocytes # (auto) 2.69 K/uL (1.2-3.4); Lymphocytes % (auto) 27.1 %; Mean Corpuscular Hemoglobin 31.7 pg (25-34); Mean Corpuscular Hgb Conc 33.8 g/dL (32-36); Mean Corpuscular Volume 93.7 fL (80-100); Mean Platelet Volume 9.5 fL (7.4-10.4); Monocytes % (auto) 8.1 %; Neutrophils # (auto) 6.32 K/uL (1.4-6.5); Neutrophils % (auto) 63.7 %; Platelet Count 528 K/uL (130-400); RDW Coefficient of Variation 13.1 % (11.5-14.5); RDW Standard Deviation 45.5 fL (36.4-46.3); Red Blood Count 4.45 M/uL (4.2-5.4); White Blood Count 9.92 K/uL (4.8-10.8)
[2021-08-02 20:47] LABS: Alanine Aminotransferase 10 U/L (7-52); Albumin Level 3.9 gm/dl (3.4-5.0); Alkaline Phosphatase 62 U/L (34-104); Anion Gap 10 (3-11); Aspartate Aminotransferase 18 U/L (13-39); BUN Creatinine Ratio 23.3 (10-20); Bilirubin,Total 0.4 mg/dl (0.2-1.0); Blood Urea Nitrogen 21 mg/dl (6-23); Calcium 9.3 mg/dl (8.5-10.1); Carbon Dioxide 27 mmol/L (21-32); Chloride 102 mmol/L (98-107); Creatinine Clr Calc Pharmacy 34.8 ml/min; Est GFR (African American) 66.6 ml/min; Est GFR (Non-African American) 57.5 ml/min; Globulin 3.9 gm/dl (2.5-4.0); Glucose 165 mg/dl (70-99(Fasting)); Potassium 3.6 mmol/L (3.5-5.1); Sodium 139 mmol/L (136-145); Total Protein 7.8 gm/dl (6.0-8.3)
[2021-08-02 20:49] LABS: Troponin I < 0.03 ng/ml (0-0.04)
--- NOTE | 2021-08-02 21:03 | Emergency Department Note ---
Imp[facility] & [facility] NAME: Valerio KIDD AGE: 86 SEX: F ARRIVES VIA: Ambulance INFORMANT: ED PROVIDER(S): Nilda Spence DO CHIEF COMPLAINT: Seizure PLAN: Disposition: Admit to the [facility] Condition: Good MEDICAL DECISION MAKING: This is an 86-year-old female patient with a history of dementia who presents to the emergency department after having a seizure at home. This lasted for approximately 10 minutes. states that approximately 6 months ago the patient had a similar event but it lasted for much shorter timeframe and they did not seek treatment. CT scan of the brain was unremarkable. Triage Nursing notes reviewed and agree with them. Prior medical records reviewed Vital Signs: reviewed and remarkable for hypertension Differential diagnosis: Seizure, CVA, intracranial hemorrhage, worsening dementia ER treatment provided: Diagnostics interpreted by me: Cardiac Monitoring: Sinus bradycardia at 58. Laboratory studies: See below Imaging studies: As per stat rad CT head: No acute abnormality. Compared to brain MRI and CT brain from October 2020. No acute intracranial hemorrhage or abnormal extra-axial fluid collection. No acute stroke. Old bilateral basal ganglia lacunar infarcts. Nonspecific white matter changes, most commonly seen with small vessel disease. Age-appropriate central and peripheral atrophy. No midline shift. No paranasal sinus air-fluid level. No fracture HPI: 86/F arrives for evaluation of seizure. Patient's explains that just after eating dinner, the patient was sitting at the breakfast bar when she slumped over in her chair and began to have a seizure. The seizure seemed to last for approximately 10 minutes and then she was unresponsive. ROS: See above HPI for pertinent positives & negatives. A total of 10 systems reviewed and were otherwise negative. PAST MEDICAL HISTORY:See Below PAST SURGICAL HISTORY:See Below FAMILY HISTORY:See Below SOCIAL HISTORY:See Below HOME MEDICATIONS:See list ALLERGIES:See list VITALS:See Below PHYSICAL EXAMINATION: HEENT: Head - normocephalic and atraumatic. Pupils are equal, round, and reactive to light. Extraocular eye muscles are intact and sclera are anicteric. Ears - bilaterally patent canals with noninjected tympanic membranes and no evidence of hemotympanum. Nose - moist nasal mucosa without discharge. Mouth - moist buccal mucosa. Oropharynx is nonerythematous and there is no tonsillar exudate or edema noted. Neck: Supple; no JVD, nuchal rigidity, cervical lymphadenopathy. Heart: Regular rate and rhythm. There is a normal S1 and S2 with no murmurs, clicks, or gallops appreciated. Lungs: Clear to auscultation bilaterally with no wheezes, rales, or rhonchi. Abdomen: Soft, completely nontender, nondistended, with good bowel sounds. There are no palpable pulsatile masses or hepatosplenomegaly. There is no guarding, rigidity, or rebound noted. Extremities: No evidence of cyanosis, clubbing, or edema. There are easily palpable peripheral pulses. Neuro:The patient is awake and alert, oriented to person and place. Muscle strength is 5/5 in all 4 extremities. The patient has equal dial maker strength and equal pedal push and pull. There are no cerebellar signs. ED COURSE: Times/Reassessments: 2039 the patient was evaluated in room A 10. A complete history and physical was performed. An order was placed for continuous cardiac monitoring. The patient is in a sinus bradycardia at 58. The patient will go for CT scan of the brain. Laboratory studies were drawn as above. [facility] will evaluate for further management. Nilda Spence, DO Past Med/Surg History Medical History (Updated 08/03/21 @ 09:19 by Seferino Hamilton MD) Cholelithiasis Depression with anxiety We will contact the patient so that she can call [facility] to get an appointment scheduled with Psychiatry to help with her anxiety and depression. 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 Surgical History History of appendectomy History of hip replacement History of hysterectomy Family History Other Myocardial infarction Denies family history of Ovarian cancer Prostate cancer Breast cancer Colorectal cancer Social History Smoking Status: Former smoker Second Hand Exposure: No; Hx Alcohol Use: No Hx Substance Use: No Preferred Language: Hungarian Communication Ability: Effective Director Of Institutional Giving Required: No Beliefs That Will Affect Care: None marital status: Current Living Situation: Spouse Current Living Situation Comment: current occupational status: retired Feels Safe at Home: Yes caffeine: No Dental Care, Regularly: Yes Physical Activity Frequency: Does not Exercise Seatbelt Use: always Sunscreen Use: No Assistive Devices: Walker Allergies Allergies Allergy/AdvReac Type Severity Reaction Status Date / Time aspirin Allergy Unknown Verified 08/02/21 21:11 Penicillins Allergy Unknown Verified 08/02/21 21:11 Home Meds Home Medications Medication Instructions Recorded Confirmed apixaban 5 mg tablet 5 mg PO BIDM 11/07/20 08/02/21 acetaminophen 500 mg tablet 1,000 mg PO Q6H PRN 08/02/21 08/02/21 (Tylenol Extra Strength) Previous Rx's Medication Instructions Recorded pantoprazole 40 mg tablet,delayed 40 mg PO QAM #30 tab 08/15/20 release metformin 500 mg 24 hr 500 mg PO QAM #90 tab 11/14/20 tablet,extended release blood-glucose meter (OneTouch #1 ea 11/28/20 Verio Meter) blood sugar diagnostic (OneTouch #100 ea 11/29/20 Verio test strips) lancets 33 gauge (OneTouch Delica #100 ea 11/29/20 Plus Lancet) venlafaxine 37.5 mg 37.5 mg PO DAILY #30 tab 11/30/20 tablet,extended release 24 hr atorvastatin 10 mg tablet 10 mg PO DAILY #30 tab 01/02/21 tolterodine 2 mg tablet 2 mg PO HS #30 tab 01/02/21 donepezil 5 mg tablet 5 mg PO DAILY #30 tab 02/22/21 gabapentin 100 mg capsule 100 mg PO HS 30 Days #30 cap 03/21/21 vibegron 75 mg tablet (Gemtesa) 75 mg PO DAILY #30 tab 06/27/21 Results & Data (ED) Vital Signs Vital Signs - 24 hr 08/02/21 19:54 08/02/21 20:00 08/02/21 20:10 Temperature Temperature Source Pulse Rate 61 63 60 Pulse Rate from SpO2 Sensor 61 58 L 62 Respiratory Rate 23 13 17 Respiratory Effort / Characteristics Non-Labored Spontaneous Respiratory Depth Normal Respiratory Pattern Regular Blood Pressure 160/71 H Blood Pressure Mean 100 Blood Pressure Position Sitting Pulse Oximetry 96 97 97 Oxygen Delivery Method Room Air Room Air Room Air Sepsis Recent Fever Within 48 Hours No Sepsis New/Unexplained Change in Mental Status No Sepsis Action Taken by Nursing No Action Required 08/02/21 20:11 08/02/21 20:20 08/02/21 20:30 Temperature 36.1 C L Temperature Source Temporal Artery Scan Pulse Rate 59 L 59 L Pulse Rate from SpO2 Sensor 58 L 58 L Respiratory Rate 18 20 Respiratory Effort / Characteristics Respiratory Depth Respiratory Pattern Blood Pressure 182/83 H Blood Pressure Mean 116 Blood Pressure Position Pulse Oximetry 98 95 Oxygen Delivery Method Room Air Room Air Sepsis Recent Fever Within 48 Hours Sepsis New/Unexplained Change in Mental Status Sepsis Action Taken by Nursing 08/02/21 20:40 08/02/21 20:50 08/02/21 21:00 Temperature Temperature Source Pulse Rate 61 59 L 58 L Pulse Rate from SpO2 Sensor 59 L 57 L 60 Respiratory Rate 23 17 17 Respiratory Effort / Characteristics Respiratory Depth Respiratory Pattern Blood Pressure 195/87 H Blood Pressure Mean 123 Blood Pressure Position Pulse Oximetry 97 95 97 Oxygen Delivery Method Room Air Room Air Room Air Sepsis Recent Fever Within 48 Hours Sepsis New/Unexplained Change in Mental Status Sepsis Action Taken by Nursing 08/02/21 21:10 08/02/21 21:20 08/02/21 21:30 Temperature Temperature Source Pulse Rate 57 L 56 L 65 Pulse Rate from SpO2 Sensor 57 L 56 L 58 L Respiratory Rate 26 H 21 18 Respiratory Effort / Characteristics Respiratory Depth Respiratory Pattern Blood Pressure Blood Pressure Mean Blood Pressure Position Pulse Oximetry 98 97 Oxygen Delivery Method Room Air Room Air Room Air Sepsis Recent Fever Within 48 Hours Sepsis New/Unexplained Change in Mental Status Sepsis Action Taken by Nursing 08/02/21 21:32 08/02/21 21:40 08/02/21 21:50 Temperature Temperature Source Pulse Rate 58 L 63 55 L Pulse Rate from SpO2 Sensor 59 L 57 L 55 L Respiratory Rate 18 20 19 Respiratory Effort / Characteristics Respiratory Depth Respiratory Pattern Blood Pressure 180/79 H Blood Pressure Mean 112 Blood Pressure Position Pulse Oximetry 98 93 98 Oxygen Delivery Method Room Air Room Air Room Air Sepsis Recent Fever Within 48 Hours Sepsis New/Unexplained Change in Mental Status Sepsis Action Taken by Nursing 08/02/21 22:08 08/02/21 22:09 08/02/21 22:10 Temperature Temperature Source Pulse Rate 62 81 58 L Pulse Rate from SpO2 Sensor 71 58 L 60 Respiratory Rate 17 15 13 Respiratory Effort / Characteristics Respiratory Depth Respiratory Pattern Blood Pressure 184/76 H Blood Pressure Mean 112 Blood Pressure Position Pulse Oximetry 93 95 97 Oxygen Delivery Method Room Air Room Air Room Air Sepsis Recent Fever Within 48 Hours Sepsis New/Unexplained Change in Mental Status Sepsis Action Taken by Nursing 08/02/21 22:20 08/02/21 22:30 08/02/21 22:40 Temperature Temperature Source Pulse Rate 57 L 71 60 Pulse Rate from SpO2 Sensor 58 L 55 L 62 Respiratory Rate 19 32 H 18 Respiratory Effort / Characteristics Respiratory Depth Respiratory Pattern Blood Pressure 196/82 H Blood Pressure Mean 120 Blood Pressure Position Pulse Oximetry 96 96 96 Oxygen Delivery Method Room Air Room Air Room Air Sepsis Recent Fever Within 48 Hours Sepsis New/Unexplained Change in Mental Status Sepsis Action Taken by Nursing 08/02/21 22:50 08/02/21 23:00 08/02/21 23:40 Temperature Temperature Source Pulse Rate 58 L 59 L 58 L Pulse Rate from SpO2 Sensor 62 59 L Respiratory Rate 22 22 Respiratory Effort / Characteristics Respiratory Depth Respiratory Pattern Blood Pressure 132/86 Blood Pressure Mean 101 Blood Pressure Position Pulse Oximetry 96 97 Oxygen Delivery Method Room Air Room Air Room Air Sepsis Recent Fever Within 48 Hours Sepsis New/Unexplained Change in Mental Status Sepsis Action Taken by Nursing 08/02/21 23:50 08/03/21 00:30 Temperature Temperature Source Pulse Rate 59 L 58 L Pulse Rate from SpO2 Sensor 59 L Respiratory Rate 18 19 Respiratory Effort / Characteristics Respiratory Depth Respiratory Pattern Blood Pressure 171/64 H Blood Pressure Mean 99 Blood Pressure Position Pulse Oximetry 96 96 Oxygen Delivery Method Room Air Sepsis Recent Fever Within 48 Hours Sepsis New/Unexplained Change in Mental Status Sepsis Action Taken by Nursing Laboratory Data Result diagrams: 08/03/21 04:57 08/03/21 04:57 Lab Results 08/02/21 08/02/21 08/02/21 Range/Units 19:35 19:35 19:35 WBC 9.92 (4.8-10.8) K/uL RBC 4.45 (4.2-5.4) M/uL Hgb 14.1 (12.0-16.0) g/dL Hct 41.7 (37-47) % MCV 93.7 (80-100) fL MCH 31.7 (25-34) pg MCHC 33.8 (32-36) g/dL RDW Std Deviation 45.5 (36.4-46.3) fL RDW Coeff of Anusha 13.1 (11.5-14.5) % Plt Count 528 H (130-400) K/uL MPV 9.5 (7.4-10.4) fL Immature Gran % (Auto) 0.3 % Neut % (Auto) 63.7 % Lymph % (Auto) 27.1 % [place] % (Auto) 8.1 % Eos % (Auto) 0.7 % Baso % (Auto) 0.1 % Neut # (Auto) 6.32 (1.4-6.5) K/uL Lymph # (Auto) 2.69 (1.2-3.4) K/uL [place] # (Auto) 0.80 H (0.11-0.59) K/uL Eos # (Auto) 0.07 (0-0.5) K/uL Baso # (Auto) 0.01 (0-0.2) K/uL Immature Gran # (Auto) 0.03 H (0.00-0.02) K/uL Sodium 139 (136-145) mmol/L Potassium 3.6 (3.5-5.1) mmol/L Chloride 102 (98-107) mmol/L Carbon Dioxide 27 (21-32) mmol/L Anion Gap 10 (3-11) BUN 21 (6-23) mg/dl Creatinine 0.90 (0.6-1.2) mg/dl Est Cr Clr Drug Dosing 34.8 ml/min Est GFR ( Amer) 66.6 ml/min Est GFR (Non-Af Amer) 57.5 ml/min BUN/Creatinine Ratio 23.3 H (10-20) Glucose 165 H (70-99(Fasting)) mg/dl Calcium 9.3 (8.5-10.1) mg/dl Total Bilirubin 0.4 (0.2-1.0) mg/dl AST 18 (13-39) U/L ALT 10 (7-52) U/L Alkaline Phosphatase 62 (34-104) U/L Troponin I < 0.03 (0-0.04) ng/ml Total Protein 7.8 (6.0-8.3) gm/dl Albumin 3.9 (3.4-5.0) gm/dl Globulin 3.9 (2.5-4.0) gm/dl Albumin/Globulin Ratio 1.0 (0.9-2) TSH 20.413 H (0.300-4.500) uIu/ml Free T4 (0.61-1.60) ng/dl Urine Color Urine Appearance (Clear) Urine pH (4.5-7.5) Ur Specific [place] (1.000-1.030) Urine Protein (Negative) Urine Glucose (UA) (Negative) Urine Ketones (Negative) Urine Blood (Negative) Urine Nitrite (Negative) Urine Bilirubin (Negative) Urine Urobilinogen (Negative) Ur Leukocyte Esterase (Negative) SARS-CoV-2, RNA, NAAT (NEGATIVE) 08/02/21 08/02/21 08/02/21 Range/Units 19:35 23:27 23:27 WBC (4.8-10.8) K/uL RBC (4.2-5.4) M/uL Hgb (12.0-16.0) g/dL Hct (37-47) % MCV (80-100) fL MCH (25-34) pg MCHC (32-36) g/dL RDW Std Deviation (36.4-46.3) fL RDW Coeff of Anusha (11.5-14.5) % Plt Count (130-400) K/uL MPV (7.4-10.4) fL Immature Gran % (Auto) % Neut % (Auto) % Lymph % (Auto) % [place] % (Auto) % Eos % (Auto) % Baso % (Auto) % Neut # (Auto) (1.4-6.5) K/uL Lymph # (Auto) (1.2-3.4) K/uL [place] # (Auto) (0.11-0.59) K/uL Eos # (Auto) (0-0.5) K/uL Baso # (Auto) (0-0.2) K/uL Immature Gran # (Auto) (0.00-0.02) K/uL Sodium (136-145) mmol/L Potassium (3.5-5.1) mmol/L Chloride (98-107) mmol/L Carbon Dioxide (21-32) mmol/L Anion Gap (3-11) BUN (6-23) mg/dl Creatinine (0.6-1.2) mg/dl Est Cr Clr Drug Dosing ml/min Est GFR ( Amer) ml/min Est GFR (Non-Af Amer) ml/min BUN/Creatinine Ratio (10-20) Glucose (70-99(Fasting)) mg/dl Calcium (8.5-10.1) mg/dl Total Bilirubin (0.2-1.0) mg/dl AST (13-39) U/L ALT (7-52) U/L Alkaline Phosphatase (34-104) U/L Troponin I (0-0.04) ng/ml Total Protein (6.0-8.3) gm/dl Albumin (3.4-5.0) gm/dl Globulin (2.5-4.0) gm/dl Albumin/Globulin Ratio (0.9-2) TSH (0.300-4.500) uIu/ml Free T4 0.66 (0.61-1.60) ng/dl Urine Color Yellow Urine Appearance Clear (Clear) Urine pH 6.5 (4.5-7.5) Ur Specific [place] 1.019 (1.000-1.030) Urine Protein Negative (Negative) Urine Glucose (UA) Negative (Negative) Urine Ketones Trace H (Negative) Urine Blood Negative (Negative) Urine Nitrite Negative (Negative) Urine Bilirubin Negative (Negative) Urine Urobilinogen Negative (Negative) Ur Leukocyte Esterase Negative (Negative) SARS-CoV-2, RNA, NAAT NEGATIVE (NEGATIVE) Administered Medications Atorvastatin Calcium (Atorvastatin 10 Mg Tab) 10 mg PO DAILY [facility] Stop: 09/02/21 08:59 Last Admin: 08/03/21 09:26 Dose: 10 mg Documented by: [id number] Donepezil HCl (Donepezil Hcl 5 Mg Tab) 5 mg PO DAILY [facility] Stop: 09/02/21 08:59 Last Admin: 08/03/21 09:26 Dose: 5 mg Documented by: [id number] Dextrose/Sodium Chloride (D5w And Nss) 1,000 mls @ 60 mls/hr IV .[id number] [facility] Stop: 08/03/21 18:28 Last Admin: 08/03/21 03:10 Dose: 60 mls/hr Documented by: [id number] Insulin Aspart (Insulin Aspart Per Unit) 0 units SC Q6 [facility] Stop: 09/02/21 05:59 Last Admin: 08/03/21 13:01 Dose: Not Given Documented by: [id number] Cosigned by: [id number] Admin: 08/03/21 05:49 Dose: Not Given Documented by: [id number] Cosigned by: [id number] Miscellaneous (Vibegron [Gemtesa]: Order Awaiting Action) 1 ea N/A QS [facility] Stop: 09/02/21 07:59 Last Admin: 08/03/21 09:26 Dose: Not Given Documented by: [id number] Pantoprazole Sodium (Pantoprazole 40 Mg Tab) 40 mg PO QAM [facility] Stop: 09/02/21 08:59 Last Admin: 08/03/21 09:25 Dose: 40 mg Documented by: [id number] Venlafaxine HCl (Venlafaxine Hcl Xr 37.5 Mg Capxr) 37.5 mg PO DAILY [facility] Stop: 09/02/21 08:59 Last Admin: 08/03/21 09:25 Dose: 37.5 mg Documented by: [id number] Discontinued Medications Apixaban (Apixaban 5 Mg Tablet) 5 mg PO ONCE ONE Stop: 08/03/21 00:33 Last Admin: 08/03/21 00:42 Dose: 5 mg Documented by: [id number] Gadobutrol (Gadobutrol 65ml Vial) 5.5 ml IV ONCE ONE Stop: 08/03/21 02:53 Last Admin: 08/03/21 02:52 Dose: 5.5 ml Documented by: [id number] Imaging Data Radiologist's Impression: Head CT 08/02/21 20:59 CT head/brain wo con CLINICAL HISTORY: seizure COMPARISON STUDY: 11/07/2020 CT DOSE: 537.48 mGy.cm TECHNIQUE: Standard CT of the Brain was performed without IV contrast. A dose lowering technique was utilized adhering to the principles of ALARA. FINDINGS: Extraaxial space: There is no evidence for subdural hematoma. There are no extra-axial fluid collections. Ventricles and cisterns: The ventricles are mildly dilated bilaterally. There is no evidence for midline shift or mass effect. Parenchyma: There is no subarachnoid or intraparenchymal hemorrhage. There is no evidence for an acute infarct or cerebral edema. Old lacunar infarcts are present involving the basal ganglia bilaterally. There is mild cerebral cortical atrophy and decreased attenuation in the periventricular white matter representing remote small vessel disease. There are no gross mass lesions. Osseous structures: There is no evidence for an acute fracture. The visualized paranasal sinuses are clear. The mastoid air cells are clear bilaterally. Soft tissues: There is no evidence for focal soft tissue swelling. IMPRESSION: No acute intracerebral pathology. Cerebral cortical atrophy, extensive remote small vessel disease and old lacunar infarcts are present. ACT 112: Negative or not required by law. Electronically signed by: Aristeo Nunez M.D. 08/03/2021 7:14 AM Discharge Plan Visit Data Chief Complaint: Syncope Stated Complaint: SYNCOPAL EPISODE ED Provider: Nilda Spence Discharge Problem: Seizure Patient Disposition: Admitted As Inpatient Discharge Instructions Interventions: ED Discharge Assessment Last Done: 08/03/21 01:35
--- NOTE | 2021-08-02 23:20 | History & Physical Report ---
Date of Service August 02, 2021 Assessment & Plan (1) Seizure-like activity: Plan: 86yo female with Alzheimer's, vascular dementia, DM2, history of CVA, history of PE, MDD, JAIDEN, GERD, and overactive bladder presents with seizure-like activity. Seizure-like activity Differential includes seizure, CVA, metabolic encephalopathy, others; unlikely vasovagal syncope given duration of episode and post-ictal state VSS; CBC notable only for thrombocytosis, BMP unremarkable, UA not infected CT head: old bilateral basal ganglia infarcts, small vessel disease, no acute abnormality Admit to med/surg telemetry, seizure precautions, fall precautions, aspiration precautions MRI brain w/ seizure protocol ordered Consider EEG NPO pending speech evaluation; D5NS @ 60mL/hr until taking PO Neurology consulted Hypothyroidism Patient without a previous diagnosis of hypothyroidism, though with a one-year history of severe fatigue TSH on admission 20.4, fT4 pending Consider starting levothyroxine while inpatient Lower abdominal discomfort UA not grossly infected, no leukocytosis, no fever Bladder scan ordered Straight cath prn DM2 HbA1c 6.2% (07/04/20) Patient's home regimen held on admission Continue BSG checks, sliding-scale insulin, hypoglycemic protocol Alzheimer's, vascular dementia Continue home donepezil History of CVA, PE Continue home eliquis, atorvastatin Repeat lipid profile ordered MDD, JAIDEN Continue home venlafaxine GERD Continue home pantoprazole Overactive bladder Continue home vibegron or formulary equivalent, continue home tolterodine FEN: NPO pending speech eval, D5NS@60mL/hr while NPO Code status: DNR/DNI per discussion with patient's and daughter DVT ppx: home eliquis PT/OT: ordered Case management: consulted Dispo: med/surg telemetry History of Present Illness Primary Care Provider: Katherin Santamaria, 86yo female with Alzheimer's, vascular dementia, DM2, history of CVA, history of PE, MDD, JAIDEN, GERD, and overactive bladder presents after an episode of seizure-like. While eating dinner this evening, patient suddenly began having generalized shaking movements of all limbs. Patient was behaving like her usual self prior to this episode, and the episode was witnessed in its entirety by patient's . Patient's eyes were closed during the episode. No bowel/bladder incontinence during the episode. These convulsions lasted about five minutes, and which patient "slumped over" in her chair; patient's managed to prevent patient from falling out of her chair. Patient was uncon scious for about five minutes after the shaking episode. While patient was unconscious, patient's notes she seemed very rigid, with her neck flexed. When she came to, she was very confused - this has slowly improved since, but her mentation has not yet returned to baseline. After patient regained consciousness, she vomited twice at home prior to EMS arrival, and once in the ED - contents appeared to look like what patient had for dinner, without blood. Patient and patient's family deny any recent illness, fever, chills, vision changes, CP, SOB, abdominal pain, diarrhea, or other symptoms. No recent sleep deprivation, no history of meningitis or encephalitis, no history of head trauma. No alcohol or other recreational substance use. Patient has a history of vascular dementia, for which she follows with Dr. Snow - first CVA was about one year ago. Patient has never had a known seizure before, although about 4-5 months ago, patient had an episode of syncope while walking - this was not evaluated medically at that time. Patient's family notes a one-year history of severe fatigue and hypersomnia, with patient sometimes sleeping 20+ hours per day. Allergies Allergy/AdvReac Type Severity Reaction Status Date / Time aspirin Allergy Unknown Verified 08/02/21 21:11 Penicillins Allergy Unknown Verified 08/02/21 21:11 Home Medications Medication Instructions Recorded Confirmed Type pantoprazole 40 mg tablet,delayed 40 mg PO QAM #30 tab 08/15/20 08/02/21 Rx release apixaban 5 mg tablet 5 mg PO BIDM 11/07/20 08/02/21 History metformin 500 mg 24 hr 500 mg PO QAM #90 tab 11/14/20 08/02/21 Rx tablet,extended release blood-glucose meter (OneTouch #1 ea 11/28/20 05/02/21 Rx Verio Meter) blood sugar diagnostic (ServiceMeshTouch #100 ea 11/29/20 05/02/21 Rx Verio test strips) lancets 33 gauge (OneTouch Delica #100 ea 11/29/20 05/02/21 Rx Plus Lancet) venlafaxine 37.5 mg 37.5 mg PO DAILY #30 tab 11/30/20 08/02/21 Rx tablet,extended release 24 hr atorvastatin 10 mg tablet 10 mg PO DAILY #30 tab 01/02/21 08/02/21 Rx tolterodine 2 mg tablet 2 mg PO HS #30 tab 01/02/21 08/02/21 Rx donepezil 5 mg tablet 5 mg PO DAILY #30 tab 02/22/21 08/02/21 Rx gabapentin 100 mg capsule 100 mg PO HS 30 Days #30 cap 03/21/21 08/02/21 Rx vibegron 75 mg tablet (Gemtesa) 75 mg PO DAILY #30 tab 06/27/21 08/02/21 Rx acetaminophen 500 mg tablet 1,000 mg PO Q6H PRN 08/02/21 08/02/21 History (Tylenol Extra Strength) valproic acid 250 mg capsule 250 mg PO DAILY #30 cap 08/03/21 Rx Past Med/Surg History Medical History (Updated 08/03/21 @ 09:19 by Seferino Hamilton MD) Cholelithiasis Depression with anxiety We will contact the patient so that she can call [facility] to get an appointment scheduled with Psychiatry to help with her anxiety and depression. 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 Surgical History History of appendectomy History of hip replacement History of hysterectomy Family History Other Myocardial infarction Denies family history of Ovarian cancer Prostate cancer Breast cancer Colorectal cancer Social History Smoking Status: Former smoker Second Hand Exposure: No; Hx Alcohol Use: No Hx Substance Use: No Preferred Language: Beninese Communication Ability: Effective Balance Engineer Required: No Beliefs That Will Affect Care: None marital status: Current Living Situation: Spouse Current Living Situation Comment: current occupational status: retired Feels Safe at Home: Yes caffeine: No Dental Care, Regularly: Yes Physical Activity Frequency: Does not Exercise Seatbelt Use: always Sunscreen Use: No Assistive Devices: Denture - Upper and Walker Review of Systems Review of Systems: See HPI Physical Exam Physical Exam: Constitutional: tired-appearing, no acute distress HEENT: NCAT, MMM CV: regular rhythm, no murmur appreciated, extremities well-perfused, no LE edema Resp: CTABL, no wheezes/rales/rhonchi appreciated, no increased work of breathing GI: soft, nondistended, mild discomfort with palpation of lower abdomen, BS normoactive MSK: no gross deformities appreciated Skin: warm, dry, no rash appreciated Neuro: alert, oriented to person and place only, CN2-12 grossly intact, strength 5/5 in all extremities, no focal neurologic deficit appreciated Results & Data Results & Data ([facility]) Vital Signs (Past 12 Hours) Vital Signs Temp Pulse Resp BP Pulse Ox 08/02/21 23:00 59 L 22 08/02/21 22:50 58 L 22 96 08/02/21 22:40 60 18 96 08/02/21 22:30 71 32 H 196/82 H 96 08/02/21 22:20 57 L 19 96 08/02/21 22:10 58 L 13 97 08/02/21 22:09 81 15 184/76 H 95 08/02/21 22:08 62 17 93 08/02/21 21:50 55 L 19 98 08/02/21 21:40 63 20 93 08/02/21 21:32 58 L 18 180/79 H 98 08/02/21 21:30 65 18 08/02/21 21:20 56 L 21 97 08/02/21 21:10 57 L 26 H 98 08/02/21 21:00 58 L 17 195/87 H 97 08/02/21 20:50 59 L 17 95 08/02/21 20:40 61 23 97 08/02/21 20:30 59 L 20 182/83 H 95 08/02/21 20:20 59 L 18 98 08/02/21 20:11 36.1 C L 08/02/21 20:10 60 17 97 08/02/21 20:00 63 13 160/71 H 97 08/02/21 19:54 61 23 96 Supervising Physician Co-Signing Physician Notes Attending addendum: I have physically seen this patient, have supervised the medical residents activities, and agree with the H&P unless as otherwise noted. Assessment and Plan: Seizure-like activity- CT head with old bilateral basal ganglia infarcts, chronic small vessel disease with no acute findings The patient will be admitted to telemetry for serial cardiac enzymes, serial EKG's, cardiac rhythm monitoring and a 2-D echocardiogram with Dopplers. Seizure precautions Order MRI of brain without contrast seizure protocol Order EEG N.p.o. until seen by speech D5 normal saline at 60 mils per hour Consult neurology Remaining orders and notations as noted Resident Activity Tracking Resident Involvement: Resident Care Provided and Drafter Electronic Coverage Note Care Provided: Adult Hospital Medicine
[2021-08-02 23:34] LABS: Appearance Urine Clear (Clear); Bilirubin Urine Negative (Negative); Blood Urine Negative (Negative); Color Urine Yellow; Glucose Urine UA Negative (Negative); Ketones Urine Trace (Negative); Leukocyte Esterase Urine Negative (Negative); Nitrite Urine Negative (Negative); Protein Urine Negative (Negative); Specific Gravity Urine 1.019 (1.000-1.030); Urobilinogen Urine Negative (Negative); pH Urine 6.5 (4.5-7.5)
[2021-08-03] MEDS ORDERED: APIXABAN 5 MG TABLET PO ONE (00:32)
[2021-08-03] MEDS ORDERED: CARBOHYDRATES FOR HYPOGLYCEMIA PO PRN (01:49)
[2021-08-03] MEDS ORDERED: GLUCAGON FOR INJ 1 MG VIAL SQ PRN (01:49)
[2021-08-03] MEDS ORDERED: DEXTROSE 50% 50 ML SYRINGE IV PRN (01:49)
[2021-08-03] MEDS ORDERED: GLUCOSE 10 TABS/TUBE PO PRN (01:49)
[2021-08-03] MEDS ORDERED: D5W AND NSS 1,000 ML IV SCH (01:49)
[2021-08-03] MEDS ORDERED: GLUCOSE 40% GEL 15 GM TUBE PO PRN (01:49)
[2021-08-03] MEDS ORDERED: GADOBUTROL 65ML VIAL IV ONE (02:52)
[2021-08-03 05:38] LABS: Basophils # (auto) 0.01 K/uL (0-0.2); Basophils % (auto) 0.1 %; Eosinophils # (auto) 0.06 K/uL (0-0.5); Eosinophils % (auto) 0.7 %; Hematocrit (blood only) 39.5 % (37-47); Hemoglobin 13.3 g/dL (12.0-16.0); Immature Granulocytes # (auto) 0.02 K/uL (0.00-0.02); Immature Granulocytes % (auto) 0.2 %; Lymphocytes # (auto) 1.41 K/uL (1.2-3.4); Lymphocytes % (auto) 16.8 %; Mean Corpuscular Hemoglobin 31.2 pg (25-34); Mean Corpuscular Hgb Conc 33.7 g/dL (32-36); Mean Corpuscular Volume 92.7 fL (80-100); Mean Platelet Volume 9.2 fL (7.4-10.4); Monocytes # (auto) 0.84 K/uL (0.11-0.59); Neutrophils # (auto) 6.05 K/uL (1.4-6.5); Neutrophils % (auto) 72.2 %; Platelet Count 478 K/uL (130-400); RDW Coefficient of Variation 13.2 % (11.5-14.5); RDW Standard Deviation 44.6 fL (36.4-46.3); Red Blood Count 4.26 M/uL (4.2-5.4); White Blood Count 8.39 K/uL (4.8-10.8)
[2021-08-03] MEDS: INSULIN ASPART PER UNIT SC SCH ×4 (05:49→20:25)
[2021-08-03 05:54] LABS: BUN Creatinine Ratio 29.4 (10-20); Chol HDL Ratio 3.2 (0-5); Creatinine Clr Calc Pharmacy 46.1 ml/min; Est GFR (African American) 91.2 ml/min; Est GFR (Non-African American) 78.6 ml/min; Potassium 3.6 mmol/L (3.5-5.1)
--- NOTE | 2021-08-03 07:15 | CT Scan Report ---
CT head/brain wo con CLINICAL HISTORY: seizure COMPARISON STUDY: 11/07/2020 CT DOSE: 537.48 mGy.cm TECHNIQUE: Standard CT of the Brain was performed without IV contrast. A dose lowering technique was utilized adhering to the principles of ALARA. FINDINGS: Extraaxial space: There is no evidence for subdural hematoma. There are no extra-axial fluid collecti ons. Ventricles and cisterns: The ventricles are mildly dilated bilaterally. There is no evidence for mid line shift or mass effect. Parenchyma: There is no subarachnoid or intraparenchymal hemorrhage. There is no evidence for an acu te infarct or cerebral edema. Old lacunar infarcts are present involving the basal ganglia bilaterall y. There is mild cerebral cortical atrophy and decreased attenuation in the periventricular white mat ter representing remote small vessel disease. There are no gross mass lesions. Osseous structures: There is no evidence for an acute fracture. The visualized paranasal sinuses are clear. The mastoid air cells are clear bilaterally. Soft tissues: There is no evidence for focal soft tissue swelling. IMPRESSION: No acute intracerebral pathology. Cerebral cortical atrophy, extensive remote small vesse l disease and old lacunar infarcts are present. ACT 112: Negative or not required by law. Electronically signed by: Aristeo Nunez M.D. 08/03/2021 7:14 AM
--- NOTE | 2021-08-03 07:26 | Neurology Consultation ---
Date of Consultation August 03, 2021 Assessment & Plan (1) Seizure: (2) Mixed Alzheimer's and vascular dementia: (3) Chronic cerebral ischemia: (4) Excessive daytime sleepiness: (5) Severe sleep apnea: (6) Depression with anxiety: (7) Hypothyroidism: This patient had a single generalized tonic-clonic seizure in the evening of August 02. She has had no further seizure activity since. The etiology of the seizure is not readily apparent but may be secondary to her underlying cerebral vascular disease and progressive dementia. There are no obvious infections, electrolyte abnormalities, medication changes, head trauma, or other obvious seizure etiologies. Interestingly, this was the 2nd episode the patient had ( the 1st was somewhat shorter and more mild about 4-5 months ago ) The patient has moderate old cerebral ischemia including multiple old lacune is. She did not have a new stroke recently. She has a moderate progressive mixed dementia including vascular components and senile dementia of the Alzheimer's type. In addition, significant hypothyroidism ( note TSH of 20) can create a worsening dementia. The patient has chronic fatigue and excessive daytime sleepiness with a diagnosis of severe sleep apnea. She is on O2 but not CPAP at night. Significant hypothyroidism can lead to fatigue and excessive sleepiness also. Patient has a history of depression and generalized anxiety disorder which are improved and stable on low-dose venlafaxine. venlafaxine could, in theory, lower seizure threshold but this is a very low dose. Recommendations: 1. Since she has had now 2 events we will initiate valproic acid 250 mg ER once daily. 2. I see no need for EEG at this time as it will not change our treatment plan. 3. Consider B12, magnesium Lyme antibody titers. 4. Evaluate and treat hypothyroidism. 5. follow up with Dr. Snow -she could be seen by ne of the Neurology PAs in 1-2 weeks as an outpatient Overall, I spent a total of 125 minutes with this case including review of records, review of MRI films, direct evaluation the patient at bedside, and discussion of the case with the patient and RN at bedside and Dr. Ricketts, including differential diagnosis and treatment options. History of Present Illness Reason for Consultation: Patient is an 86 year old, who I was asked to see at the request of Dr. Porter, for neurologic consultation regarding seizure and other issues. Requesting Physician: Dr. Porter Attending Physician: Gm Siddiqi MD History of Present Illness The patient has a history of a progressive, mixed dementia and is followed by Dr. Snow, who saw her last 02-22-21.He 1st saw this patient in January 2020 for progressive dementia. She carries a diagnosis of mixed dementia with vascular component and a senile dementia of the Alzheimer's type. She is on low-dose donepezil 5 mg a day. In addition, the patient has a history of type 2 diabetes on metformin and "previous strokes". The patient saw Dr. Villegas in October of 2020 For profound fatigue and hypersomnia. There was a question on CT of the head of a new acute or subacute right thalamic lacunar infarct. An MRI at that time showed old lacunar infarcts of left frontal and bilateral basal ganglia areas. She had moderate atrophy and old small vessel ischemia well. There were no acute strokes. There is no other history that I can gather from the old records that relate to stroke. Patient has a history of major depression and generalized anxiety disorder ( diagnoses found on records from [employer] 2018) currently on low dose venlafaxine 37.5 mg daily . She has a history of hypothyroidism on medication in the past, but she has not been on thyroid medication recently. In April of 2021, patient was diagnosed with severe sleep apnea after polysomnogram testing. She was prescribed CPAP and oxygen but never got the CPAP. she has had excessive daytime sleepiness particularly worse since the summer, according to the . About 4-5 months ago the patient had an episode where she was sitting on the bar stool and had an event of stiffening and fell off. She came to more quickly and did not want to go to the hospital. The did note some stiffening and shaking but there was no tongue biting or incontinence at that time. Patient was at home and in her usual state health on August 02, when after eating dinner, the patient's witnessed her suddenly have generalized shaking movements of all limbs. 1st, the noted a generalized stiffening of the limbs. He is uncertain how long that lasted he also noted her eyes were closed during the episode and this eye closure lasted 10 minutes. She did not bite her tongue or wet herself. Afterwards she was nonresponsive. She was confused more than usual when she was aroused. She vomited twice at home prior to the EMS arrival and once in the emergency department. Apparently she had no previous or concurrent illness, trauma, new medication or new sleep deprivation. She arrived to the emergency room August 02 at 7:54 p.m., with the pulse of 61 and regular, respiratory rate 23 and regular, blood pressure 160/71, and O2 saturation 96%. She was afebrile. According to the patient's , her mental status was not back to baseline. No focal neurologic findings were noted. CT scan of the head showed no acute changes. CBC and Chem profile were unremarkable except for glucose of 165. Urinalysis was. TSH was elevated at 20.4. MRI of the brain showed no acute stroke and moderate old small vessel ischemia and atrophy of a generalized nature as before. Patient feels very tired but is not in any pain. She has no headache and is seeing well. Nursing reports no events or seizures since coming to the emergency room. She did not receive any benzodiazepines or seizure medication. Blood pressure is 168/76 and she is afebrile. Allergies Allergy/AdvReac Type Severity Reaction Status Date / Time aspirin Allergy Unknown Verified 08/02/21 21:11 Penicillins Allergy Unknown Verified 08/02/21 21:11 Home Medications Medication Instructions Recorded Confirmed Type pantoprazole 40 mg tablet,delayed 40 mg PO QAM #30 tab 08/15/20 08/02/21 Rx release apixaban 5 mg tablet 5 mg PO BIDM 11/07/20 08/02/21 History metformin 500 mg 24 hr 500 mg PO QAM #90 tab 11/14/20 08/02/21 Rx tablet,extended release blood-glucose meter (OneTouch #1 ea 11/28/20 05/02/21 Rx Verio Meter) blood sugar diagnostic (OneTouch #100 ea 11/29/20 05/02/21 Rx Verio test strips) lancets 33 gauge (OneTouch Delica #100 ea 11/29/20 05/02/21 Rx Plus Lancet) venlafaxine 37.5 mg 37.5 mg PO DAILY #30 tab 11/30/20 08/02/21 Rx tablet,extended release 24 hr atorvastatin 10 mg tablet 10 mg PO DAILY #30 tab 01/02/21 08/02/21 Rx tolterodine 2 mg tablet 2 mg PO HS #30 tab 01/02/21 08/02/21 Rx donepezil 5 mg tablet 5 mg PO DAILY #30 tab 02/22/21 08/02/21 Rx gabapentin 100 mg capsule 100 mg PO HS 30 Days #30 cap 03/21/21 08/02/21 Rx vibegron 75 mg tablet (Gemtesa) 75 mg PO DAILY #30 tab 06/27/21 08/02/21 Rx acetaminophen 500 mg tablet 1,000 mg PO Q6H PRN 08/02/21 08/02/21 History (Tylenol Extra Strength) Patient History Medical History (Updated 08/03/21 @ 09:19 by Seferino Hamilton MD) Cholelithiasis Depression with anxiety We will contact the patient so that she can call [facility] to get an appointment scheduled with Psychiatry to help with her anxiety and depression. 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 Beliefs That Will Affect Care: None marital status: Current Living Situation: Spouse Current Living Situation Comment: current occupational status: retired Feels Safe at Home: Yes caffeine: No Dental Care, Regularly: Yes Physical Activity Frequency: Does not Exercise Seatbelt Use: always Sunscreen Use: No Assistive Devices: Cane and Walker Review of Systems Constitutional: + fatigue; no fever and no weakness Eyes: no diplopia, no eye pain and no worsening vision Ear, Nose, Mouth, Throat: no ear pain, no tinnitus, no hearing loss, no dizziness, no snoring, no hoarseness and no dysphagia Respiratory: no cough and no dyspnea Cardiovascular: no chest pain, no palpitations and no lightheadedness Gastrointestinal: no abdominal pain, no nausea and no vomiting Genitourinary: no dysuria, no urinary frequency and no urinary incontinence Musculoskeletal: no back pain, no neck pain, no radicular pain, no joint pain and no myalgia Integumentary: no rash and no lesions Neurologic: + dizziness ( With sitting up) and + memory loss; no gait abnormality, no localized weakness, no generalized weakness, no tingling, no numbness, no tremor(s), no abnormal movements, no headache(s), no abnormal speech and no confusion Psychiatric: no depression, no irritability, no anxiety, no difficulty concentrating, no confusion and no hallucinations Endocrine: no fatigue and no flushing Hematologic / Lymphatic: no easy bleeding and no easy bruising Allergy / Immunological: no urticaria and no problem reported Exam (Neuro) Physical Exam: The patient is right-handed. The patient is awake, alert, and attentive. Speech is relatively normal without any obvious aphasia or dysarthria. The patient can name objects, repeat phrases, and has normal spontaneous speech. mood is normal and affect is appropriate. She is pleasant and cooperative. She is oriented to her name and her age but not where she is ( [facility]), the year, the date, the day, the month, or the season. She cannot give any detailed medical history and is not sure what happened to her yesterday, except she thinks she "passed out" and knows that she went to the bathroom and vomited once. The discs are sharp with positive venous pulsations bilaterally. There are no exudates, hemorrhages, or blood vessel changes seen. Pupils are 4 mm bilaterally and reactive to light. Extraocular eye muscles are intact without nystagmus. Visual acuity and visual otto seem normal grossly to confrontation. There are no deficits to sensation in the face in all 3 distributions of the fifth cranial nerve bilaterally. Corneal reflexes are positive bilaterally. Facial strength and symmetry was normal bilaterally. Hearing seems normal bilaterally. Palate moves well without asymmetry. There is normal sternocleidomastoid and trapezius (shoulder shrug) strength bilaterally. Tongue is midline with good strength bilaterally. Neck has a full range of motion without discomfort. There are no cervical bruits bilaterally. There are no cranial or ocular bruits. Heart is without murmur. There is a regular rhythm and rate. Cervical, thoracic, and lumbar spine are nontender to palpation. Gait Was not tested and stance sitting up in bed is poor because it made her "dizzy". She could not be more specific. With outstretched arms there is no drift. There are no resting, postural, or action tremors. There is no ataxia with finger to nose testing. There is good facility in the hands. No other abnormal involuntary movements are noted. Motor strength is 5/5 diffusely in the arms bilaterally including deltoids, biceps, triceps, brachioradialis, wrist flexors and extensors, field operations manager, and intrinsic hand muscles. Motor strength is 5/5 diffusely in the legs bilaterally including hip flexors, quadriceps, hamstrings, gastrocnemius, tibialis anterior, tibialis posterior, and Peroneii muscles. Toe extensors are normal and there is good bulk in the extensor digitorum brevis muscles bilaterally. The limbs have good tone without rigidity or spasticity. There is no atrophy noted in the muscles. Muscle bulk is normal, there is no tenderness to palpation, no myotonia to percussion, and no fasciculations seen. Sensory examination is intact to touch and pin throughout all 4 limbs diffusely. Reflexes are 2/4 in the biceps, triceps, brachioradialis, aand quadriceps tendons bilaterally. Achilles tendon reflexes were absent bilaterally. There is no clonus bilaterally. Toes are downgoing with plantar stimulation bilaterally. Peripheral pulses are present and of normal quality distally in all 4 limbs. There is no peripheral edema noted in the limbs. Results & Data ([facility]) Vital Signs (Past 12 Hours) Vital Signs Temp Pulse Pulse Resp BP BP Pulse Ox 08/03/21 04:36 58 L 16 96 08/03/21 04:09 08/03/21 02:00 59 L 14 168/76 H 97 08/03/21 01:00 60 12 171/69 H 96 08/03/21 00:30 58 L 19 171/64 H 96 08/02/21 23:50 59 L 18 96 08/02/21 23:40 58 L 22 132/86 97 08/02/21 23:00 59 L 22 08/02/21 22:50 58 L 22 96 08/02/21 22:40 60 18 96 08/02/21 22:30 71 32 H 196/82 H 96 08/02/21 22:20 57 L 19 96 08/02/21 22:10 58 L 13 97 08/02/21 22:09 81 15 184/76 H 95 08/02/21 22:08 62 17 93 08/02/21 21:50 55 L 19 98 08/02/21 21:40 63 20 93 08/02/21 21:32 58 L 18 180/79 H 98 08/02/21 21:30 65 18 08/02/21 21:20 56 L 21 97 08/02/21 21:10 57 L 26 H 98 08/02/21 21:00 58 L 17 195/87 H 97 08/02/21 20:50 59 L 17 95 08/02/21 20:40 61 23 97 08/02/21 20:30 59 L 20 182/83 H 95 08/02/21 20:20 59 L 18 98 08/02/21 20:11 36.1 C L 08/02/21 20:10 60 17 97 08/02/21 20:00 63 13 160/71 H 97 08/02/21 19:54 61 23 96 Pulse Ox 08/03/21 04:36 08/03/21 04:09 97 08/03/21 02:00 08/03/21 01:00 08/03/21 00:30 08/02/21 23:50 08/02/21 23:40 08/02/21 23:00 08/02/21 22:50 08/02/21 22:40 08/02/21 22:30 08/02/21 22:20 08/02/21 22:10 08/02/21 22:09 08/02/21 22:08 08/02/21 21:50 08/02/21 21:40 08/02/21 21:32 08/02/21 21:30 08/02/21 21:20 08/02/21 21:10 08/02/21 21:00 08/02/21 20:50 08/02/21 20:40 08/02/21 20:30 08/02/21 20:20 08/02/21 20:11 08/02/21 20:10 08/02/21 20:00 08/02/21 19:54 PG Care Time/CCT Total # of Minutes Spent Total Time Spent with Patient: Total time spent is greater than 50% in coordination of care (as documented) at patient's floor/unit and/or counseling patient: Coding Level of Care Code 21129 Initial Inpt Care Lvl 3 Diagnoses Seizure R56.9 Excessive daytime sleepiness G47.19 Mixed Alzheimer's and vascular dementia G30.9; F01.50; F02.80 Severe sleep apnea G47.30 Depression with anxiety F41.8 Hypothyroidism E03.9 Chronic cerebral ischemia I67.82 Time Spent (min) 125 Comment Add modifiers as able
[2021-08-03 07:34] LABS: Estimated Average Glucose 128 mg/dl; Hemoglobin A1C 6.1 % (4.5-5.6)
[2021-08-03] MEDS: VENLAFAXINE HCL XR 37.5 MG CAPXR PO SCH (09:25)
[2021-08-03] MEDS: PANTOprazole 40 MG TAB PO SCH (09:25)
[2021-08-03] MEDS: DONEPEZIL HCL 5 MG TAB PO SCH (09:26)
[2021-08-03] MEDS: ATORVASTATIN 10 MG TAB PO SCH (09:26)
--- NOTE | 2021-08-03 10:15 | Magnetic Resonance Report ---
MR brain seizure wo/w con CLINICAL HISTORY: seizure-like activity TECHNIQUE: Multiplanar and multisequence MR images of the brain were obtained prior to and following administration of gadolinium contrast. Comparison: Comparison is made to MRI brain 08/10/2020 FINDINGS: No abnormal restricted diffusion is identified. Foci of T2 and FLAIR hyperintensity are noted in the paraventricular areas consistent with chronic small vessel ischemic disease. Ex vacuo ventriculomegal y and sulcal enlargement is noted compatible with diffuse encephalomalacia. Focal encephalomalacia is seen in the left supraventricular white matter compatible with old lacunar infarcts. There are no ma sses, mass effect, or midline shift. No abnormal enhancement is seen. There is no evidence of acute i ntraparenchymal hemorrhage. No extra axial fluid collections are seen. The corpus callosum, pituitary gland, and cerebellar tonsils appear grossly unremarkable.High-resolution images of the temporal lob es do not demonstrate any signal abnormality. Flow voids of the major intracranial arterial vessels are identified. The imaged portions of the para nasal sinuses, mastoid air cells, and orbits are unremarkable. IMPRESSION: No acute abnormality. In particular, no edema in the temporal lobes bilaterally in this postictal pat ient. ACT 112: Negative or not required by law. Electronically signed by: Jimmie Sawyer M.D. 08/03/2021 10:13 AM
[2021-08-03] MEDS: DIVALPROEX EXTENDED RELEASE 250 MG TABCR PO SCH (14:57)
[2021-08-03] MEDS ORDERED: Nursing to Pharmacy Communication SCH (15:15)
--- NOTE | 2021-08-03 15:24 | Electrocardiogram Report ---
Test Reason : Blood Pressure : / mmHG Vent. Rate : 070 BPM Atrial Rate : 070 BPM P-R Int : 184 ms QRS Dur : 096 ms QT Int : 400 ms P-R-T Axes : 055 -16 050 degrees QTc Int : 432 ms Poor data quality, interpretation may be adversely affected Sinus rhythm with Premature atrial complexes Anterior infarct , age undetermined Abnormal ECG When compared with ECG of 07-NOV-2020 12:17, Premature atrial complexes are now Present Confirmed by Surinder Sagastume ([id number]) on 08/03/2021 3:24:29 PM Referred By: REFERRED SELF Confirmed By:Surinder Sagastume
[2021-08-03 15:43] LABS: Lyme Ab IgG w/WB Rflx Negative (Negative); Lyme Ab IgM w/WB Rflx Negative (Negative)
--- NOTE | 2021-08-03 16:51 | Hospitalist Progress Note ---
Date of Service August 03, 2021 Assessment & Plan (1) Seizure-like activity: Plan: 86yo female with Alzheimer's, vascular dementia, DM2, history of CVA, history of PE, MDD, JAIDEN, GERD, and overactive bladder presents with seizure-like activity. Seizure-like activity Differential includes seizure, CVA, metabolic encephalopathy, others; unlikely vasovagal syncope given duration of episode and post-ictal state VSS; CBC notable only for thrombocytosis, BMP unremarkable, UA not infected CT and MRI both demonstrating old bilateral basal ganglia infarcts, small vessel disease, no acute abnormality Seizure likely due to chronic vasculopathy-induced cerebral damage/old infarcts Neurology consult- started valproic acid 250 mg ER as AED, outpatient f/u in 1-2 weeks. B12 testing ordered. Pt medically stable for discharge but cannot pick her up today and would also like her to go to inpatient rehab PT/OT ordered, case management following Increased TSH Patient without a previous diagnosis of hypothyroidism, though with a one-year history of severe fatigue TSH on admission 20.4, fT4 wnl- euthyroid sick vs possible subclinical hypothyroidism Repeat TSH, obtain thyroid panel in few weeks as outpatient Lower abdominal discomfort UA not grossly infected, no leukocytosis, no fever Bladder scan ordered Straight cath prn DM2 HbA1c 6.2% (07/04/20) Patient's home regimen held on admission Continue BSG checks, sliding-scale insulin, hypoglycemic protocol Pt not on any RASHAAD/ARB, consider starting as outpatient Alzheimer's, vascular dementia Continue home donepezil History of CVA, PE Continue home eliquis, atorvastatin Repeat lipid profile ordered MDD, JAIDEN Continue home venlafaxine GERD Continue home pantoprazole Overactive bladder Continue home vibegron or formulary equivalent, continue home tolterodine FEN: DM2 diet Code status: DNR/DNI per discussion with patient's and daughter DVT ppx: home Eliquis PT/OT: ordered Case management: consulted Dispo: med/surg telemetry Admission and Anticipated Discharge Date Admission Date: August 03, 2021 Supervising Physician Co-Signing Physician Notes I personally examined the patient and verified all harris points of history and exam, discussed case, and agree with decision making with Dr Porras no meaningful HPI or ROS obtainable from pt vitals noted nad heent nc at mmm breathing unlabored no accessory muscles good effort skin no rashes no pallor or icterus seizure -likely from overall baseline brain disease -depakote debility - apparently in phone d/w dr porras - would like her to go to rehab otherwise as above Subjective Interview limited by pt's baseline cognition No acute events overnight. Denies any acute complaints, states she feels well. No further seizure-like episodes, denies headache, weakness, numbness, vision or hearing change. Review of Systems Review of Systems: Per Subjective Physical Exam Physical Exam: Constitutional: tired-appearing, no acute distress HEENT: NCAT, EOMI, MMM CV: regular rhythm, no murmur appreciated, extremities well-perfused, no LE edema Resp: CTAB, no wheezes/rales/rhonchi appreciated, no increased work of breathing GI: soft, nondistended, mild discomfort with palpation of lower abdomen, BS normoactive MSK: no gross deformities appreciated Skin: warm, dry, no rash appreciated Neuro: alert, oriented to person and place only, CN2-12 grossly intact, strength 5/5 in all extremities, no focal motor or sensory deficits, could not elicit Achilles reflexes Results & Data Results & Data ([facility]) Vital Signs (Past 12 Hours) Vital Signs Temp Pulse Pulse Resp BP Pulse Ox 08/03/21 15:07 69 08/03/21 13:42 36.5 C 74 21 177/79 H 95 Resident Activity Tracking Resident Involvement: Resident Care Provided Care Provided: Adult Hospital Medicine
--- NOTE | 2021-08-03 18:44 | Billing Data ---
Date of Service August 03, 2021 Coding Level of Care Code 15832 Subseq Hosp Care Lvl 2
[2021-08-03] MEDS: GABAPENTIN 100 MG CAP PO SCH (20:24)
[2021-08-03] MEDS: TOLTERODINE TARTRATE 2 MG TAB PO SCH (20:25)
[2021-08-03] MEDS: APIXABAN 5 MG TABLET PO SCH (21:01)
[2021-08-04] MEDS: DONEPEZIL HCL 5 MG TAB PO SCH (08:32)
[2021-08-04] MEDS: APIXABAN 5 MG TABLET PO SCH ×2 (08:32→21:33)
[2021-08-04] MEDS: VENLAFAXINE HCL XR 37.5 MG CAPXR PO SCH (08:32)
[2021-08-04] MEDS: metFORMIN HCL ER 500 MG TABCR PO SCH (08:32)
[2021-08-04] MEDS: DIVALPROEX EXTENDED RELEASE 250 MG TABCR PO SCH (08:33)
[2021-08-04] MEDS: ATORVASTATIN 10 MG TAB PO SCH (08:33)
[2021-08-04] MEDS: PANTOprazole 40 MG TAB PO SCH (08:33)
[2021-08-04] MEDS: INSULIN ASPART PER UNIT SC SCH ×4 (08:38→21:30)
[2021-08-04 10:34] LABS: Hematocrit (blood only) 38.2 % (37-47)
--- NOTE | 2021-08-04 11:57 | Hospitalist Progress Note ---
Date of Service August 04, 2021 Assessment & Plan (1) Seizure-like activity: Plan: 86yo female with Alzheimer's, vascular dementia, DM2, history of CVA, history of PE, MDD, JAIDEN, GERD, and overactive bladder presents with seizure-like activity. 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 B12 and Lyme wnl. Pt medically stable for discharge but family would like her to go to inpatient rehab PT/OT ordered, case management following Increased TSH Patient without a previous diagnosis of hypothyroidism, though with a one-year history of severe fatigue TSH on admission 20.4, fT4 wnl- euthyroid sick vs possible subclinical hypothyroidism Repeat TSH, obtain thyroid panel in few weeks as outpatient Lower abdominal discomfort UA not grossly infected, no leukocytosis, no fever Straight cath prn DM2 HbA1c 6.2% (07/04/20) Patient's home regimen held on admission Continue BSG checks, sliding-scale insulin, hypoglycemic protocol Pt not on any RASHAAD/ARB, consider starting as outpatient Alzheimer's, vascular dementia Continue home donepezil History of CVA, PE Continue home eliquis, atorvastatin Repeat lipid profile ordered MDD, JAIDEN Continue home venlafaxine GERD Continue home pantoprazole Overactive bladder Continue home vibegron or formulary equivalent, continue home tolterodine FEN: DM2 diet Code status: DNR/DNI per discussion with patient's and daughter DVT ppx: home Eliquis PT/OT: ordered Case management: consulted Dispo: med/surg telemetry Admission and Anticipated Discharge Date Admission Date: August 03, 2021 Supervising Physician Co-Signing Physician Notes I personally examined the patient and verified all harris points of history and exam, discussed case, and agree with decision making with Dr Calhoun no meaningful HPI or ROS obtainable from pt, eating lunch when i see her vitals noted nad heent nc at mmm breathing unlabored no accessory muscles good effort skin no rashes no pallor or icterus seizure -has not recurred - continue depakote debility - working on SNF/rehab otherwise as above Subjective Interview limited by pt's baseline cognition. Per nursing report, pt apparently had bloody stool overnight- FOBT and H+H ordered. Also had nausea but overnight MD held Zofran due to concern of anti- emetics potentially lowering seizure threshold. Denies any acute complaints, states she feels well. No further seizure-like episodes, denies headache, weakness, numbness, vision or hearing change. Review of Systems Review of Systems: Per Subjective Physical Exam Physical Exam: Constitutional: tired-appearing, no acute distress HEENT: NCAT, EOMI, MMM CV: regular rhythm, no murmur appreciated, extremities well-perfused, no LE edema Resp: CTAB, no wheezes/rales/rhonchi appreciated, no increased work of breathing GI: soft, nondistended, nontender MSK: no gross deformities appreciated Skin: warm, dry, no rash appreciated Neuro: alert, oriented to person and only, CN2-12 grossly intact, strength 5/5 in all extremities, no focal motor or sensory deficits, could not elicit Achilles reflexes Results & Data Results & Data ([facility]) Vital Signs (Past 12 Hours) Vital Signs Temp Pulse Resp BP Pulse Ox 08/04/21 11:47 36.6 C 71 17 117/69 95 08/04/21 08:01 37.6 C H 105 H 18 97/62 L 93 Resident Activity Tracking Resident Involvement: Resident Care Provided Care Provided: Adult Hospital Medicine
--- NOTE | 2021-08-04 15:38 | Billing Data ---
Date of Service August 04, 2021 Coding Level of Care Code 54816 Subseq Hosp Care Lvl 2
[2021-08-04] MEDS: TOLTERODINE TARTRATE 2 MG TAB PO SCH (21:32)
[2021-08-04] MEDS: GABAPENTIN 100 MG CAP PO SCH (21:32)
[2021-08-05] MEDS: ATORVASTATIN 10 MG TAB PO SCH (08:18)
[2021-08-05] MEDS: DONEPEZIL HCL 5 MG TAB PO SCH (08:18)
[2021-08-05] MEDS: PANTOprazole 40 MG TAB PO SCH (08:18)
[2021-08-05] MEDS: VENLAFAXINE HCL XR 37.5 MG CAPXR PO SCH (08:18)
[2021-08-05] MEDS: DIVALPROEX EXTENDED RELEASE 250 MG TABCR PO SCH (08:18)
[2021-08-05] MEDS: APIXABAN 5 MG TABLET PO SCH ×2 (08:19→21:01)
[2021-08-05] MEDS: metFORMIN HCL ER 500 MG TABCR PO SCH (08:19)
--- NOTE | 2021-08-05 10:33 | Hospitalist Progress Note ---
Date of Service August 05, 2021 Assessment & Plan (1) Seizure-like activity: Plan: 86yo female with Alzheimer's, vascular dementia, DM2, history of CVA, history of PE, MDD, JAIDEN, GERD, and overactive bladder presents with seizure-like activity. 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 B12 and Lyme wnl. Pt medically stable for discharge but family would like her to go to inpatient rehab PT/OT ordered, case management following Increased TSH Patient without a previous diagnosis of hypothyroidism, though with a one-year history of severe fatigue TSH on admission 20.4, fT4 wnl- euthyroid sick vs possible subclinical hypothyroidism Repeat TSH, obtain thyroid panel in few weeks as outpatient Lower abdominal discomfort UA not grossly infected, no leukocytosis, no fever Recent incident of darker colored stool non-concerning- normal FOBT and H+H Straight cath prn DM2 HbA1c 6.2% (07/04/20) Patient's home regimen held on admission Continue BSG checks, sliding-scale insulin, hypoglycemic protocol. BSGs stable in 100s Pt not on any RASHAAD/ARB, consider starting as outpatient Alzheimer's, vascular dementia Continue home donepezil History of CVA, PE Continue home eliquis, atorvastatin Repeat lipid profile ordered MDD, JAIDEN Continue home venlafaxine GERD Continue home pantoprazole Overactive bladder Continue home vibegron or formulary equivalent, continue home tolterodine FEN: DM2 diet Code status: DNR/DNI per discussion with patient's and daughter DVT ppx: home Eliquis PT/OT: ordered Case management: seeking inpatient rehab Dispo: med/surg telemetry Admission and Anticipated Discharge Date Admission Date: August 03, 2021 Supervising Physician Co-Signing Physician Notes I personally examined the patient and verified all harris points of history and exam, discussed case, and agree with decision making with Dr Calhoun only complaint is "i'm wet" - sought assistance for pt. no other acute complaints although obviously HPI and ROS fairly unreliable. vitals noted nad heent nc at mmm breathing unlabored no accessory muscles good effort skin no rashes no pallor or icterus seizure -has not recurred - continue depakote, does not appear excessively groggy/sedated. debility - working on SNF/rehab - stable once available otherwise as above Subjective Interview limited by pt's baseline cognition. No acute events overnight. She states she feels well, no further seizures or complaints at this time. Pt still confused. Review of Systems Review of Systems: Per Subjective Physical Exam Physical Exam: Constitutional: [id number], laying in bed comfortably, no acute distress HEENT: NCAT, EOMI, MMM CV: regular rhythm, no murmur appreciated, extremities well-perfused, no LE edema Resp: CTAB, no wheezes/rales/rhonchi appreciated, no increased work of breathing GI: soft, nondistended, nontender MSK: no gross deformities appreciated Skin: warm, dry, no rash appreciated Neuro: alert, oriented to person and only, epic specialist grossly intact, no focal motor or sensory deficits, could not elicit Achilles reflexes Results & Data Results & Data ([facility]) Vital Signs (Past 12 Hours) Vital Signs Temp Pulse Resp BP Pulse Ox 08/05/21 07:09 36.9 C 65 16 142/66 H 96 08/04/21 23:00 36.9 C 62 16 129/71 96
[2021-08-05] MEDS: INSULIN ASPART PER UNIT SC SCH ×4 (10:50→21:05)
--- NOTE | 2021-08-05 13:29 | Billing Data ---
Date of Service August 05, 2021 Coding Level of Care Code 17051 Subseq Hosp Care Lvl 1
--- NOTE | 2021-08-05 20:53 | Billing Data ---
Date of Service August 05, 2021 Coding Level of Care Code 49070 Initial Inpt Care Lvl 3
[2021-08-05] MEDS: TOLTERODINE TARTRATE 2 MG TAB PO SCH (21:00)
[2021-08-05] MEDS: GABAPENTIN 100 MG CAP PO SCH (21:01)
[2021-08-06] MEDS: INSULIN ASPART PER UNIT SC SCH ×4 (08:44→21:00)
[2021-08-06] MEDS: metFORMIN HCL ER 500 MG TABCR PO SCH (10:26)
[2021-08-06] MEDS: DIVALPROEX EXTENDED RELEASE 250 MG TABCR PO SCH (10:26)
[2021-08-06] MEDS: APIXABAN 5 MG TABLET PO SCH ×2 (10:26→20:42)
[2021-08-06] MEDS: DONEPEZIL HCL 5 MG TAB PO SCH (10:27)
[2021-08-06] MEDS: PANTOprazole 40 MG TAB PO SCH (10:27)
[2021-08-06] MEDS: ATORVASTATIN 10 MG TAB PO SCH (10:27)
--- NOTE | 2021-08-06 10:55 | Hospitalist Progress Note ---
Date of Service August 06, 2021 Assessment & Plan (1) Seizure-like activity: Plan: 86yo female with Alzheimer's, vascular dementia, DM2, history of CVA, history of PE, MDD, JAIDEN, GERD, and overactive bladder presents with seizure-like activity. 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 B12 and Lyme wnl. Pt medically stable for discharge but family would like her to go to inpatient rehab PT/OT ongoing, case management following Increased TSH Patient without a previous diagnosis of hypothyroidism, though with a one-year history of severe fatigue TSH on admission 20.4, fT4 wnl- euthyroid sick vs possible subclinical hypothyroidism Repeat TSH, obtain thyroid panel in few weeks as outpatient Lower abdominal discomfort UA not grossly infected, no leukocytosis, no fever Recent incident of darker colored stool non-concerning- normal FOBT and H+H Straight cath prn DM2 HbA1c 6.2% (07/04/20) Patient's home regimen held on admission Continue BSG checks, sliding-scale insulin, hypoglycemic protocol. BSGs stable in 100s Pt not on any RASHAAD/ARB, consider starting as outpatient Alzheimer's, vascular dementia Continue home donepezil History of CVA, PE Continue home eliquis, atorvastatin Repeat lipid profile ordered MDD, JAIDEN Continue home venlafaxine GERD Continue home pantoprazole Overactive bladder Continue home vibegron or formulary equivalent, continue home tolterodine FEN: DM2 diet Code status: DNR/DNI per discussion with patient's and daughter DVT ppx: home Eliquis PT/OT: ordered Case management: seeking inpatient rehab Dispo: med/surg Admission and Anticipated Discharge Date Admission Date: August 03, 2021 Supervising Physician Co-Signing Physician Notes I saw the patient concur with the resident physician confirmed harris portions of the history and physical examination. I agree with the impression plan as noted in the resident documentation. Upon examination, she is awake. Smiles. Minimal interaction. No distress appreciated. 143/64, 56, 14, 36.5, 97% room air IMPRESSION AND PLAN Seizure Valproic acid PT/OT Dementia, mixed Alzheimer's and vascular Continue donezepil Suspect hypothyroidism With a TSH greater than 20 and a low normal free T4, suspect this is true hypothyroidism versus sick euthyroid syndrome. She has had progressive fatigue, but I suspect this is multifactorial including her progressive dementia, obstructive sleep apnea, and some element of hypothyroidism. Will query outside medical records from the office to see if there is a more recent TSH which may be predictive of a pattern We will likely consider starting supplementation. Subjective Interview limited by pt's baseline cognition. No acute events overnight. Pt sleeping on evaluation this morning. Later during morning rounds, noticed to be awake. She states she feels well, no further seizures or complaints at this time. Review of Systems Review of Systems: Per Subjective Physical Exam Physical Exam: Constitutional: [id number], laying in bed comfortably sleeping, no acute distress HEENT: Deferred due to pt sleeping CV: regular rhythm, no murmur appreciated, extremities well-perfused, no LE edema Resp: CTAB, no wheezes/rales/rhonchi appreciated, no increased work of breathing GI: soft, nondistended, nontender MSK: no gross deformities appreciated Skin: warm, dry, no rash appreciated Neuro: Deferred due to pt sleeping Results & Data Results & Data ([facility]) Vital Signs (Past 12 Hours) Vital Signs Temp Pulse Resp BP Pulse Ox 08/06/21 05:22 37.1 C 63 16 150/62 H 94 Resident Activity Tracking Resident Involvement: Resident Care Provided Care Provided: Adult Hospital Medicine
[2021-08-06] MEDS: ACETAMINOPHEN 500 MG TAB PO PRN (16:11)
[2021-08-06] MEDS: TOLTERODINE TARTRATE 2 MG TAB PO SCH (20:42)
[2021-08-06] MEDS: GABAPENTIN 100 MG CAP PO SCH (20:42)
[2021-08-07] MEDS: ACETAMINOPHEN 500 MG TAB PO PRN ×2 (00:15→08:02)
[2021-08-07] MEDS: ATORVASTATIN 10 MG TAB PO SCH (08:02)
[2021-08-07] MEDS: DONEPEZIL HCL 5 MG TAB PO SCH (08:02)
[2021-08-07] MEDS: PANTOprazole 40 MG TAB PO SCH (08:03)
[2021-08-07] MEDS: VENLAFAXINE HCL XR 37.5 MG CAPXR PO SCH (08:03)
[2021-08-07] MEDS: APIXABAN 5 MG TABLET PO SCH ×2 (08:03→19:24)
[2021-08-07] MEDS: metFORMIN HCL ER 500 MG TABCR PO SCH (08:03)
[2021-08-07] MEDS: DIVALPROEX EXTENDED RELEASE 250 MG TABCR PO SCH (08:03)
[2021-08-07] MEDS: INSULIN ASPART PER UNIT SC SCH ×4 (08:48→20:51)
--- NOTE | 2021-08-07 09:43 | Hospitalist Progress Note ---
Date of Service August 07, 2021 Assessment & Plan (1) Seizure-like activity: Plan: 86yo female with Alzheimer's, vascular dementia, DM2, history of CVA, history of PE, MDD, JAIDEN, GERD, and overactive bladder presents with seizure-like activity. 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 B12 and Lyme wnl. Pt medically stable for discharge but family would like her to go to inpatient rehab PT/OT ongoing, case management following Increased TSH Patient without a previous diagnosis of hypothyroidism, though with a one-year history of severe fatigue TSH on admission 20.4, fT4 very low-normal at 0.6- euthyroid sick vs possible subclinical hypothyroidism vs primary hypothyroidism Given some symptomatology and degree of TSH/ft4 aberration, suspect potential true hypothyroidism Begin thyroid supplementation- synthroid 25 mcg daily, repeat TSH/thyroid p miranda in few weeks Dementia, vascular + Alzheimer's Baseline cognitive impairment, no concern for acute AMS at this time Continue reorientation, redirection. Will avoid antipsychotic use at this time Continue home donepezil Lower abdominal discomfort UA not grossly infected, no leukocytosis, no fever Recent incident of darker colored stool non-concerning- normal FOBT and H+H Straight cath prn DM2 HbA1c 6.2% (07/04/20) Patient's home regimen held on admission Continue BSG checks, sliding-scale insulin, hypoglycemic protocol. BSGs stable in 100s Pt not on any RASHAAD/ARB, consider starting as outpatient History of CVA, PE Continue home eliquis, atorvastatin Repeat lipid profile wnl MDD, JAIDEN Continue home venlafaxine GERD Continue home pantoprazole Overactive bladder Continue home vibegron or formulary equivalent, continue home tolterodine FEN: DM2 diet Code status: DNR/DNI per discussion with patient's and daughter DVT ppx: home Eliquis PT/OT: ordered Case management: seeking inpatient rehab Dispo: med/surg Admission and Anticipated Discharge Date Admission Date: August 03, 2021 Supervising Physician Co-Signing Physician Notes I saw the patient concur with the resident physician confirmed harris portions of the history and physical examination. I agree with the impression plan as noted in the resident documentation. Upon examination, she is awake. Smiles. Says "good morning." No distress appreciated. 149/77, 74, 12 IMPRESSION AND PLAN Seizure Valproic acid Neurology consult appreciated PT/OT Placement Dementia, mixed Alzheimer's and vascular Continue donepezil Suspect hypothyroidism With a TSH greater than 20 and a low normal free T4, suspect this is true hypothyroidism versus sick euthyroid syndrome. She has had progressive fatigue, but I suspect this is multifactorial including her progressive dementia, obstructive sleep apnea, and some element of hypothyroidism. Start Synthroid 25 mcg TSH and Ft4 in 6 weeks. TSH goal on the upper end of normal to avoid risk of oversupplementation and side effects Subjective Interview limited by pt's baseline cognition. No acute events overnight. Pt eating breakfast on evaluation today. Quietly states she feels fine aside from some mild R sided neck soreness. Review of Systems Review of Systems: Per Subjective Physical Exam Physical Exam: Constitutional: [id number], laying in bed comfortably, no acute distress HEENT: NCAT, EOMI, MMM CV: regular rhythm, 2/6 systolic murmur over RUSB, extremities well-perfused, no LE edema Resp: CTAB, no wheezes/rales/rhonchi appreciated, no increased work of breathing GI: soft, nondistended, nontender MSK: no gross deformities appreciated Skin: warm, dry, no rash appreciated Neuro: alert, oriented to person and only, automotive customer experience advisor grossly intact, no focal motor or sensory deficits, could not elicit Achilles reflexes Results & Data Results & Data ([facility]) Vital Signs (Past 12 Hours) Vital Signs Temp Pulse Resp BP Pulse Ox 08/07/21 07:53 36.9 C 60 12 188/70 H 97 08/06/21 22:56 36.9 C 52 L 16 155/69 H 96 Resident Activity Tracking Resident Involvement: Resident Care Provided Care Provided: Adult [facility]
[2021-08-07] MEDS: GABAPENTIN 100 MG CAP PO SCH (19:24)
[2021-08-07] MEDS: TOLTERODINE TARTRATE 2 MG TAB PO SCH (19:24)
[2021-08-08] MEDS: LEVOTHYROXINE SODIUM 25 MCG TABLET PO SCH (06:13)
[2021-08-08] MEDS: PANTOprazole 40 MG TAB PO SCH (08:47)
[2021-08-08] MEDS: DONEPEZIL HCL 5 MG TAB PO SCH (08:47)
[2021-08-08] MEDS: ATORVASTATIN 10 MG TAB PO SCH (08:47)
[2021-08-08] MEDS: DIVALPROEX EXTENDED RELEASE 250 MG TABCR PO SCH (08:47)
[2021-08-08] MEDS: metFORMIN HCL ER 500 MG TABCR PO SCH (08:47)
[2021-08-08] MEDS: APIXABAN 5 MG TABLET PO SCH ×2 (08:47→21:58)
[2021-08-08] MEDS: INSULIN ASPART PER UNIT SC SCH ×4 (09:43→22:05)
--- NOTE | 2021-08-08 12:08 | Hospitalist Progress Note ---
Date of Service August 08, 2021 Assessment & Plan (1) Seizure-like activity: Plan: 86yo female with Alzheimer's, vascular dementia, DM2, history of CVA, history of PE, MDD, JAIDEN, GERD, and overactive bladder presents with seizure-like activity. 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 B12 and Lyme wnl. Pt medically stable for discharge but family would like her to go to inpatient rehab. Anticipated discharge to [facility] tomorrow. PT/OT ongoing Pressure ulcers Stage 1 pressure ulcers of left calcaneus and sacrum noted Encourage frequent repositioning, monitor for symptoms of worsening/infection Increased TSH Patient without a previous diagnosis of hypothyroidism, though with a one-year history of severe fatigue TSH on admission 20.4, fT4 very low-normal at 0.6- euthyroid sick vs possible subclinical hypothyroidism vs primary hypothyroidism Given some symptomatology and degree of TSH/ft4 aberration, suspect potential true hypothyroidism Continue synthroid 25 mcg daily, repeat TSH/thyroid panel in 6 weeks Dementia, vascular + Alzheimer's Baseline cognitive impairment, no concern for acute AMS at this time Continue reorientation, redirection. Will avoid antipsychotic use at this time Continue home donepezil Lower abdominal discomfort UA not grossly infected, no leukocytosis, no fever Recent incident of darker colored stool non-concerning- normal FOBT and H+H Straight cath prn DM2 HbA1c 6.2% (07/04/20) Patient's home regimen held on admission Continue BSG checks, sliding-scale insulin, hypoglycemic protocol. BSGs stable in 100s Pt not on any RASHAAD/ARB, consider starting as outpatient History of CVA, PE Continue home eliquis, atorvastatin Repeat lipid profile wnl MDD, JAIDEN Continue home venlafaxine GERD Continue home pantoprazole Overactive bladder Continue home vibegron or formulary equivalent, continue home tolterodine FEN: DM2 diet Code status: DNR/DNI per discussion with patient's and daughter DVT ppx: home Eliquis PT/OT: ongoing Case management: seeking inpatient rehab Dispo: med/surg, d/c tomorrow to [facility] Admission and Anticipated Discharge Date Admission Date: August 03, 2021 Supervising Physician Co-Signing Physician Notes I saw the patient concur with the resident physician confirmed harris portions of the history and physical examination. I agree with the impression plan as noted in the resident documentation. Tentative plan is transfer to nursing facility tomorrow Exam 146/72, 63, 16, 37, 97% on room air Upon examination, she is awake. Smiles. Says "good morning" and "hello." Nods yes to questions. Denies pain. No distress appreciated. IMPRESSION AND PLAN Seizure Valproic acid Neurology consult appreciated PT/OT Placement Dementia, mixed Alzheimer's and vascular Continue donepezil Suspect hypothyroidism With a TSH greater than 20 and a low normal free T4, suspect this is true hypothyroidism versus sick euthyroid syndrome. She has had progressive fatigue, but I suspect this is multifactorial including her progressive dementia, obstructive sleep apnea, and some element of hypothyroidism. StartED Synthroid 25 mcg yesterday TSH and Ft4 in 6 weeks. TSH goal on the upper end of normal to avoid risk of oversupplementation and side effects Subjective Interview limited by pt's baseline cognition. No acute events overnight. Quietly states she feels fine, no acute complaints. Review of Systems Review of Systems: Per Subjective Physical Exam Physical Exam: Constitutional: [id number], laying in bed comfortably, no acute distress HEENT: NCAT, EOMI, MMM CV: regular rhythm, 2/6 systolic murmur over RUSB, extremities well-perfused, no LE edema Resp: CTAB, no wheezes/rales/rhonchi appreciated, no increased work of breathing GI: soft, nondistended, nontender MSK: no gross deformities appreciated Skin: Sacral and L calcaneus stage 1 pressure ulcer noted, no erythema, warmth or drainage Neuro: alert, oriented to person and only, pizza driver grossly intact, no focal motor or sensory deficits, could not elicit Achilles reflexes Results & Data Results & Data ([facility]) Vital Signs (Past 12 Hours) Vital Signs Temp Pulse Resp BP BP Pulse Ox 08/08/21 11:02 37 C 63 16 146/72 H 97 08/08/21 07:28 37.2 C 64 16 152/80 H 95 Resident Activity Tracking Resident Involvement: Resident Care Provided Care Provided: Adult Hospital Medicine
[2021-08-08] MEDS: TOLTERODINE TARTRATE 2 MG TAB PO SCH (21:58)
[2021-08-08] MEDS: GABAPENTIN 100 MG CAP PO SCH (21:59)
[2021-08-09] MEDS: LEVOTHYROXINE SODIUM 25 MCG TABLET PO SCH (05:37)
--- NOTE | 2021-08-09 07:03 | Discharge Summary ---
Date of Service August 09, 2021 Admission HPI Per Admitting Provider 86yo female with Alzheimer's, vascular dementia, DM2, history of CVA, history of PE, MDD, JAIDEN, GERD, and overactive bladder presents after an episode of seizure- like. While eating dinner this evening, patient suddenly began having generalized shaking movements of all limbs. Patient was behaving like her usual self prior to this episode, and the episode was witnessed in its entirety by patient's . Patient's eyes were closed during the episode. No bowel/bladder incontinence during the episode. These convulsions lasted about five minutes, and which patient "slumped over" in her chair; patient's managed to prevent patient from falling out of her chair. Patient was unconscious for about five minutes after the shaking episode. While patient was unconscious, patient's notes she seemed very rigid, with her neck flexed. When she came to, she was very confused - this has slowly improved since, but her mentation has not yet returned to baseline. After patient regained consciousness, she vomited twice at home prior to EMS arrival, and once in the ED - contents appeared to look like what patient had for dinner, without blood. Patient and patient's family deny any recent illness, fever, chills, vision changes, CP, SOB, abdominal pain, diarrhea, or other symptoms. No recent sleep deprivation, no history of meningitis or encephalitis, no history of head trauma. No alcohol or other recreational substance use. Patient has a history of vascular dementia, for which she follows with Dr. Snow - first CVA was about one year ago. Patient has never had a known seizure before, although about 4-5 months ago, patient had an episode of syncope while walking - this was not evaluated medically at that time. Patient's family notes a one-year history of severe fatigue and hypersomnia, with patient sometimes sleeping 20+ hours per day. 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 Discharge Exam Constitutional: [id number], laying in bed comfortably, no acute distress HEENT: NCAT, EOMI, MMM CV: regular rhythm, 2/6 systolic murmur over RUSB, extremities well-perfused, no LE edema Resp: CTAB, no wheezes/rales/rhonchi appreciated, no increased work of breathing GI: soft, nondistended, nontender MSK: no gross deformities appreciated Skin: Sacral and L calcaneus stage 1 pressure ulcers unchanged, no erythema, warmth or drainage Neuro: alert, oriented to person and only, elementary reading specialist grossly intact, no focal motor or sensory deficits, could not elicit Achilles reflexes Discharge Data Allergies Allergy/AdvReac Type Severity Reaction Status Date / Time aspirin Allergy Unknown Verified 08/02/21 21:11 Penicillins Allergy Unknown Verified 08/02/21 21:11 Consultations 08/03/21 07:00 Consult Neurology Routine Ordered Studies 08/02/21 20:59 CT head/brain wo con Urgent 08/03/21 01:49 MR brain seizure wo/w con Routine Hospital Course (1) Seizure-like activity: 86yo female with Alzheimer's, vascular dementia, DM2, history of CVA, history of PE, MDD, JAIDEN, GERD, and overactive bladder presents with seizure-like activity. 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 B12 and Lyme wnl. CMP in 3-4 weeks to monitor liver function on valproic acid Discharge to [facility] today for rehab Pressure ulcers Stage 1 pressure ulcers of left calcaneus and sacrum noted and did not evolve by time of discharge Increased TSH Patient without a previous diagnosis of hypothyroidism, though with a one-year history of severe fatigue TSH on admission 20.4, fT4 very low-normal at 0.6- euthyroid sick vs possible subclinical hypothyroidism vs primary hypothyroidism Given some symptomatology and degree of TSH/ft4 aberration, suspect potential true hypothyroidism- begin supplementation Continue synthroid 25 mcg daily, repeat TSH/thyroid panel in 6 weeks Dementia, vascular + Alzheimer's Baseline cognitive impairment, no acute AMS during stay Continue home donepezil Lower abdominal discomfort UA not grossly infected, no leukocytosis, no fever One incident of darker colored stool non-concerning- normal FOBT and H+H DM2 HbA1c 6.2% (07/04/20) Patient's home regimen held on admission Continue BSG checks, sliding-scale insulin, hypoglycemic protocol. BSGs stable in 100s Pt not on any RASHAAD/ARB, consider starting as outpatient History of CVA, PE Continue home eliquis, atorvastatin Repeat lipid profile wnl MDD, JAIDEN Continue home venlafaxine GERD Continue home pantoprazole Overactive bladder Continue home vibegron or formulary equivalent, continue home tolterodine Total Time Total Time Spent Total Time Spent (In Minutes): 30 Discharge Plan Discharge Items Patient Disposition: Transfer [facility] Fac Reason For Visit: SEIZURE LIKE ACTIVITY Discharge Diagnosis: Seizure due to past strokes Activity: Per Instructions section Non-emergency contact: Primary Care Provider and Neurologist Call non-emergency contact if: you have any medication questions and your symptoms worsen Follow-up/Referrals: Katherin Santamaria, [Primary Care Provider] - Diet: Carb Consistent or DM2 Addtl Attending Provider Instructions: You were admitted to the hospital for seizures. We concluded from our workup that your seizures were most likely due to brain injury from previous strokes as a chronic problem. You were treated with anti-seizure medication to prevent further seizures, which have not occurred since admission. You will be going to [facility] for rehab where you will hopefully regain enough strength to return to your home. A discharge summary will be sent to your primary care physician to ensure continuity of care. Please bring this discharge summary with you to your next office appointment so that your provider can review it at that time. Follow-up appointments: Make a follow-up appointment with your PCP within the next week. It is very important that you follow up with them shortly after discharge from the hospital. Medications: Your medication list has been reviewed and reconciled upon discharge to ensure accuracy and continuity of care. An updated list of all your medications is included with your hospital discharge paperwork. Please review this list closely, and make note of any changes. We sent a medication to the pharmacy called valproic acid. This is a seizure prevention medication you will continue for the long-term. Please take valproic acid 250 mg once daily. Take your medications as instructed; do not skip a dose of your medicines. Make sure all of your doctors know every medicine you are taking (including nelx-jzy-xkwznlz medicines, vitamins, and supplements). Call your primary care provider before taking any new medicines (including xbvl-wxq-eavzsfe medicines, vitamins, and supplements), because some of these may interact with your current medications, or may make your symptoms worse. Tell your primary care provider if you cannot afford your medications. CONTACT YOUR PRIMARY CARE PROVIDER if you experience any of the following: Fever Nausea, vomiting Abdominal pain Headache Difficulty following your treatment plan, or difficulty taking medications CALL 911 OR GO TO THE EMERGENCY DEPARTMENT if you experience any of the following: Sudden shaking, loss of consciousness, or numbness/weakness Sudden, severe abdominal pain or nausea/vomiting Severe chest pain, or chest pain that radiates (moves) to your jaw or arm Sudden, severe shortness of breath or difficulty breathing Thank you for allowing us to participate in your care. Pending Studies at Discharge: No Stand-Alone Forms: My [facility] Skilled Items Patient informed of condition?: Yes DNR: Yes Discharge Level of Care: Skilled Communicable Disease: No Discharge Prognosis: Stable Lines: None Urinary Catheter: No Medications and DC Order Prescriptions: New valproic acid 250 mg capsule 250 mg PO DAILY Qty: 30 RF: 0 Continued pantoprazole 40 mg tablet,delayed release (DR/EC) 40 mg PO QAM Qty: 30 RF: 11 metformin 500 mg tablet,ER faith.retention 24 hr 500 mg PO QAM Qty: 90 RF: 0 (DME) blood-glucose meter [OneTouch Verio Meter] [facility] See Rx Instructions .ROUTE .MEDSUPPLY Qty: 1 RF: 0 (DME) OneTouch Verio test strips Strip See Rx Instructions .ROUTE .MEDSUPPLY Qty: 100 RF: 1 (DME) lancets [OneTouch Delica Plus Lancet] 33 gauge misc See Rx Instructions .ROUTE .MEDSUPPLY Qty: 100 RF: 0 gabapentin 100 mg capsule 100 mg PO HS 30 Days Qty: 30 RF: 3 donepezil 5 mg tablet 5 mg PO DAILY Qty: 30 RF: 5 venlafaxine 37.5 mg tablet extended release 24hr 37.5 mg PO DAILY Qty: 30 RF: 4 tolterodine 2 mg tablet 2 mg PO HS Qty: 30 RF: 4 atorvastatin 10 mg tablet 10 mg PO DAILY Qty: 30 RF: 6 Gemtesa 75 mg tablet 75 mg PO DAILY Qty: 30 RF: 2 apixaban 5 mg tablet 5 mg PO BIDM RF: 0 acetaminophen [Tylenol Extra Strength] 500 mg Tablet 1,000 mg PO Q6H PRN (Reason: Pain) RF: 0 Discharge Orders: Discharge Order (Routine); Ordered 08/09/21 Ordered By: Mary Amaral/Other Patient Handouts: Managing Type 2 Diabetes Admission Data Admit Date/Time: 08/03/21 00:32 Attending Provider: Aric Hickman Admit Provider: Favian Porter Primary Care Provider: Katherin Santamaria Other Providers: Gm Siddiqi ; [facility] ; Kaitlyn Villegas [facility] ; Seferino Hamilton Other Interventions: Discharge Summary Assessment (RN) Last Done: 08/09/21 12:23 Supervising Physician Co-Signing Physician Notes I saw the patient concur with the resident physician confirmed harris portions of the history and physical examination. I agree with the impression plan as noted in the resident documentation. Tentative plan is transfer to nursing facility later today. Exam 155/72, 80, 16, 37.3, 97% on room air Upon examination, she is sleeping but awakens to my voice. She smiles. No distress appreciated. IMPRESSION AND PLAN Seizure Valproic acid Neurology consult appreciated PT/OT Placement Dementia, mixed Alzheimer's and vascular Continue donepezil Suspect hypothyroidism With a TSH greater than 20 and a low normal free T4, suspect this is true hypothyroidism versus sick euthyroid syndrome. She has had progressive fatigue, but I suspect this is multifactorial including her progressive dementia, obstructive sleep apnea, and some element of hypothyroidism. Started Synthroid 25 mcg this admission TSH and Ft4 in 6 weeks. TSH goal on the upper end of normal to avoid risk of oversupplementation and side effects Resident Activity Tracking Resident Involvement: Resident Care Provided Care Provided: Adult [facility]
[2021-08-09] MEDS: ATORVASTATIN 10 MG TAB PO SCH (08:20)
[2021-08-09] MEDS: metFORMIN HCL ER 500 MG TABCR PO SCH (08:20)
[2021-08-09] MEDS: PANTOprazole 40 MG TAB PO SCH (08:20)
[2021-08-09] MEDS: DONEPEZIL HCL 5 MG TAB PO SCH (08:20)
[2021-08-09] MEDS: APIXABAN 5 MG TABLET PO SCH (08:20)
[2021-08-09] MEDS: DIVALPROEX EXTENDED RELEASE 250 MG TABCR PO SCH (08:20)
[2021-08-09] MEDS: VENLAFAXINE HCL XR 37.5 MG CAPXR PO SCH (08:20)
[2021-08-09] MEDS: INSULIN ASPART PER UNIT SC SCH ×2 (09:10→12:56)
--- NOTE | 2021-08-15 09:24 | Coding Query ---
PRESENT ON ADMISSION QUERY To promote full compliance with coding requirements relating to pateint care, physician participation is requested in all cases of energy specialist uncertainty. Please assist us with the question(s) below: Please place an X within the parenthesis (x). The following diagnosis(es) listed in this patient's medical record require physician assistance to determine if they were present on admission (POA) or not. Please advise for each diagnosis whether it was present on admission, not present on admission, or if it was clinically undetermined. 1.Stage I Pressure Ulcers of Sacrum and Heel ( ) Present On Admission ( ) Not Present On Admission ( ) Clinically Undetermined Thank you Vishnu Koo, [employer] SERVICE TECHNICIAN [facility] *Definition of the present on admission (POA)-Present on admission is defined as present at the time the order for inpatient admission occurs. Conditions that develop during an outpatient encounter prior to a written order for inpatient admission (including emergency department, observation, or outpatient surgery) are considered present on admission. MTDD
== END 2021-08-09 15:22 | DRG 101 ==
LOC: ED 19:35 → EDINP 08-03 00:32 → SUATTDRO 08-03 00:32 → 2W 08-03 01:35 → 3N 08-04 15:13